=== PATIENT | male | born 1940 | race Caucasian/White ===

== ENCOUNTER 2016-04-10 19:36 | Inpatient (IN) | payer MEDICARE, OTHER ==
--- NOTE | 2016-04-10 19:55 | ER Document Report ---
ED Respiratory Problem - General Stated Complaint: BREATHING DIFFICULTY Time seen by provider: 19:55 Mode of Arrival: Medic Information source: Emergency Med Personnel TRAVEL OUTSIDE OF THE [place] IN LAST 30 DAYS: No - HPI Patient complains to provider of: Cough, Short of breath Onset: This evening Duration: Worse/persistent Quality of pain: No pain Severity: Severe Context: Recent surgery Short of Breath: Severe Chest pain/discomfort: Tightness Cough: Nonproductive Associated symptoms: Congestion, Cough, Difficulty breathing, Short of breath Recently seen / treated by doctor: Yes Notes: Patient is a 76-year-old male brought to the emergency room by EMS from local alf for shortness of breath and difficulty breathing, patient was recently admitted to outside facility and had a surgery on his left hip for a intertrochanteric fracture, he was discharged to the alf for rehabilitation, he arrived on BiPAP, he is a poor historian and it is difficult to get additional information from, but EMS reports that his pulse ox was 78% on arrival - Related Data Allergies/Adverse Reactions: Hymenoptera Allergenic Extract [From Yellow Jacket Venom Protein] Allergy ( Severe, Verified 03/01/15 14:56) Anaphylaxis morphine [Morphine] Allergy (Severe, Verified 03/01/15 14:56) Hallucinations Penicillins Allergy (Severe, Verified 03/01/15 14:56) Heart Attack Yellow Jacket Krish Protein [From Yellow Jacket Venom Protein] Allergy (Severe, Verified 03/01/15 14:56) Anaphylaxis Home Medications: Current Home Medications Acetaminophen [Pain Relief] 650 mg PO Q6H PRN 04/11/16 [History] Amlodipine Besylate/Benazepril [Amlodipine-Benazepril 5-40 mg] 1 cap PO DAILY [History] Bisacodyl 10 mg RC Q24H PRN 04/11/16 [History] Carvedilol [Coreg 25 mg Tablet] PO BID 04/11/16 [History] Carvedilol [Coreg 25 mg Tablet] 25 mg PO BID 04/11/16 [History] Ferrous Sulfate [Iron] 325 mg PO DAILY 04/11/16 [History] Folic Acid 1 mg PO DAILY 04/11/16 [History] Levofloxacin [Levaquin] 500 mg PO DAILY 04/11/16 [History] Sennosides [Senna] 8.6 mg PO BID 04/11/16 [History] Tamsulosin HCl [Flomax] 0.4 mg PO DAILY 04/11/16 [History] Tramadol HCl 50 mg PO Q6H PRN 04/11/16 [History] Tramadol HCl [Conzip] 100 mg PO Q6H PRN 04/11/16 [History] Past Medical History - General Information source: Emergency Med Personnel - Social History Smoking Status: Unknown if Ever Smoked Family History: Hypertension - Past Medical History Cardiac Medical History: Reports: Hx Atrial Fibrillation, Hx Congestive Heart Failure, Hx Coronary Artery Disease, Hx Hypertension Pulmonary Medical History: Reports: Hx COPD Endocrine Medical History: Reports: Hx Diabetes Mellitus Type 2 Past Surgical History: Reports: Hx Cardiac Surgery - pacemaker, Hx Orthopedic Surgery - multiple bilat knees, Hx Pacemaker - Immunizations Hx Diphtheria, Pertussis, Tetanus Vaccination: Yes Review of Systems - Review of Systems Constitutional: No symptoms reported EENT: No symptoms reported Cardiovascular: No symptoms reported Respiratory: See HPI Gastrointestinal: No symptoms reported Genitourinary: No symptoms reported Male Genitourinary: No symptoms reported Musculoskeletal: See HPI Skin: No symptoms reported Hematologic/Lymphatic: No symptoms reported Neurological/Psychological: No symptoms reported -: Yes All other systems reviewed and negative Physical Exam - Vital signs Vitals: Resp Pulse Ox 29 H 99 04/10/16 19:45 04/10/16 19:45 Interpretation: Tachypneic - General General appearance: Alert In distress: Mild - HEENT Head: Normocephalic, Atraumatic Eyes: Normal Pupils: PERRL Mucous membranes: Dry Pharynx: Normal Neck: Normal - Respiratory Respiratory status: Other - BiPAP in place Chest status: Nontender Breath sounds: Nonproductive cough, Rhonchi, Wheezing Chest palpation: Normal - Cardiovascular Rhythm: Regular Heart sounds: Normal auscultation Murmur: No - Abdominal Inspection: Normal Distension: No distension Bowel sounds: Normal Tenderness: Nontender Organomegaly: No organomegaly - Back Back: Normal - Extremities General upper extremity: Normal inspection, Nontender, Normal color, Normal ROM , Normal temperature General lower extremity: No: Ericka's sign Hip: Other - Incision to left lateral hip, small amount of blood on dressing, mild tenderness, wound is intact, no current bleeding or drainage, mild tenderness to palpate. - Neurological Neuro grossly intact: Yes Cognition: Confused [place] Coma Scale Eye Opening: Spontaneous Yessica Coma Scale Verbal: Confused Yessica Coma Scale Motor: Obeys Commands [place] Coma Scale Total: 14 Speech: Normal Sensory: Normal - Psychological Associated symptoms: Normal affect, Normal mood - Skin Skin Temperature: Warm Skin Moisture: Dry Skin Color: Normal Course - Re-evaluation Re-evalutation: 04/11/16 03:31 Patient with anemia, likely the cause of his shortness of breath, blood transfusion has been ordered, patient was discussed with the hospitalist who agrees to admit for further evaluation and treatment, patient was trialed off of BiPAP for short amount of time but became hypoxic, therefore BiPAP was replaced - Vital Signs Vital signs: Temp Pulse Resp BP Pulse Ox 98.8 F 60 24 H 114/63 90 L 04/11/16 00:02 04/11/16 02:42 04/11/16 02:42 04/11/16 00:02 04/11/16 02:42 - Laboratory Result Diagrams: 04/10/16 19:43 04/10/16 19:43 Laboratory results interpreted by me: 04/10/16 04/10/16 04/10/16 19:43 19:43 19:43 RBC 2.33 L Hgb 7.6 L Hct 22.9 L MCV 99 H RDW 14.3 H Plt Count 137 L Seg Neutrophils % 79.8 H Lymphocytes % 8.1 L PT APTT Sodium 147.3 H Chloride 113 H Carbon Dioxide 21 L BUN 75 H Creatinine 2.34 H Est GFR ( Amer) 33 L Est GFR (Non-Af Amer) 27 L Glucose 205 H Total Bilirubin 1.5 H ALT 20 L NT-Pro-B Natriuret Pep 39859 H Total Protein 6.0 L Albumin 3.2 L Urine Urobilinogen Crossmatch 04/10/16 04/10/16 04/10/16 19:43 19:43 21:22 RBC Hgb Hct MCV RDW Plt Count Seg Neutrophils % Lymphocytes % PT 18.9 H APTT 42.2 H Sodium Chloride Carbon Dioxide BUN Creatinine Est GFR ( Amer) Est GFR (Non-Af Amer) Glucose Total Bilirubin ALT NT-Pro-B Natriuret Pep Total Protein Albumin Urine Urobilinogen 2.0 H Crossmatch See Detail - Diagnostic Test Radiology reviewed: Image reviewed, Reports reviewed - EKG Interpretation by Me Rate: Normal Rhythm: A.Fib - Transfer of Care Care transferred to following provider: Dr. Cole Critical Care Note - Critical Care Note Total time excluding time spent on procedures (mins): 30 Comments: Patient with difficulty breathing, hypoxia, requiring BiPAP placement, noted to be anemic, requiring blood transfusion and admission Discharge - Discharge Clinical Impression: ERIBERTO (acute kidney injury) Anemia Qualifiers: Anemia type: unspecified type Qualified Code(s): D64.9 - Anemia, unspecified Condition: Fair Disposition: ADMITTED INPATIENT Admitting Provider: Hospitalist Unit Admitted: Telemetry
[2016-04-10 20:29] LABS: ABSOLUTE LYMPHOCYTES (AUTO) 0.6 10^3/uL (0.5-4.7); ABSOLUTE MONOCYTES (AUTO) 0.8 10^3/uL (0.1-1.4); ABSOLUTE NEUT (AUTO) 5.9 10^3/uL (1.7-8.2); BASOPHILS % (AUTO) 0.3 % (0-2); EOSINOPHILS % (AUTO) 0.4 % (0-6); HEMATOCRIT 22.9 % (37.9-51.0); HGB HCT DIFFERENCE -0.1; LYMPHOCYTES % (AUTO) 8.1 % (13-45); MEAN CORPUSCULAR HEMOGLOBIN 32.8 pg (27.0-33.4); MEAN CORPUSCULAR HGB CONC 33.3 g/dL (32.0-36.0); MEAN CORPUSCULAR VOLUME 99 fl (80-97); MONOCYTES % (AUTO) 11.4 % (3-13); RED BLOOD COUNT 2.33 10^6/uL (4.35-5.55); RED CELL DISTRIBUTION WIDTH 14.3 % (11.5-14.0); SEGMENTED NEUTROPHILS % (AUTO) 79.8 % (42-78); WHITE BLOOD COUNT 7.4 10^3/uL (4.0-10.5)
[2016-04-10 20:32] LABS: HEMOGLOBIN 7.6 g/dL (13.5-17.0)
[2016-04-10 20:35] LABS: APPEARANCE,URINE SLIGHTLY-CLOUDY; BILIRUBIN,URINE NEGATIVE (NEGATIVE); GLUCOSE, URINE NEGATIVE (NEGATIVE); KETONES,URINE NEGATIVE (NEGATIVE); LEUKOCYTE ESTERASE,URINE NEGATIVE (NEGATIVE); NITRITE,URINE NEGATIVE (NEGATIVE); PROTEIN,URINE NEGATIVE (NEGATIVE); URINE SPECIFIC GRAVITY 1.016
[2016-04-10 20:39] LABS: PROTHROMBIN TIME 18.9 SEC (11.4-15.4)
[2016-04-10 20:40] LABS: PARTIAL THROMBOPLASTIN TIME 42.2 SEC (23.5-35.8)
[2016-04-10 20:47] LABS: ALANINE AMINOTRANSFERASE 20 U/L (21-72); ALBUMIN 3.2 g/dL (3.5-5.0); ALKALINE PHOSPHATASE 78 U/L (38-126); ANION GAP 13 (5-19); ASPARTATE AMINO TRANSFERASE 22 U/L (17-59); BILIRUBIN,TOTAL 1.5 mg/dL (0.2-1.3); BLOOD UREA NITROGEN 75 mg/dL (7-20); CALCIUM 9.6 mg/dL (8.4-10.2); CARBON DIOXIDE 21 mmol/L (22-30); CHLORIDE 113 mmol/L (98-107); CREATINE KINASE 82 U/L (55-170); CREATININE RESULT 2.34 mg/dL (0.52-1.25); GLUCOSE 205 mg/dL (75-110); POTASSIUM 4.4 mmol/L (3.6-5.0); SODIUM 147.3 mmol/L (137-145)
[2016-04-10 20:59] LABS: CREATINE KINASE MB 3.26 ng/mL (<4.55)
[2016-04-10 21:02] LABS: TROPONIN I 0.09 ng/mL
[2016-04-10] MEDS ORDERED: NORMAL SALINE 250 ML IV PRN (21:04)
[2016-04-10] MEDS ORDERED: IPRATROPIUM/ALBUTEROL 0.5-2.5 MG/3 ML AMPUL NEB ONE (22:52)
[2016-04-10] MEDS ORDERED: ACETAMINOPHEN 325 MG TABLET PO PRN (23:03)
[2016-04-10] MEDS ORDERED: CARVEDILOL 12.5 MG TABLET PO ONE (23:13)
[2016-04-11 00:18] LABS: CREATINE KINASE 73 U/L (55-170); MAGNESIUM 2.2 mg/dL (1.6-2.3)
[2016-04-11 00:45] LABS: CREATINE KINASE MB 3.1 ng/mL (<4.55); TROPONIN I 0.082 ng/mL
[2016-04-11 01:35] LABS: FOLATE > 20.00 ng/mL (>2.76)
[2016-04-11] MEDS: LEVALBUTEROL HCL NEB 1.25 MG/3 ML AMPUL NEB SCH ×4 (02:42→19:57)
[2016-04-11] MEDS: IPRATROPIUM BROMIDE 0.02% NEB 0.5 MG/2.5 ML AMPUL NEB SCH ×4 (02:42→19:56)
--- NOTE | 2016-04-11 05:00 | PDOC H&P ---
History of Present Illness Admission Date/PCP: 04/10/16 23:40 VON KRAMER Patient complains of: Shortness of breath History of Present Illness: SANJUANA KING JR is a 76 year old male with an extensive past medical history of chronic renal failure, atrial fibrillation, congestive heart failure unknown fraction, permanent pacemaker with defibrillator who was discharged 48 hours ago from [facility] following surgery on his left hip for an anterior trochanteric fracture and found in respiratory distress started on BiPAP and oxygen brought to the emergency room for evaluation. Where his found to have severe anemia with a hemoglobin of 7 his last on record was 11 2 years ago. His chest x-ray shows left lobe atelectasis with small effusion. He's continued on BiPAP referred to the hospitalist for admission. Patient appears encephalopathic and possibly intoxicated from tramadol with pinpoint pupils in no distress. Denying nausea vomiting chest pain palpitations shortness of breath. Past Medical History Cardiac Medical History: Reports: Atrial Fibrillation, Congestive Heart Failure , Coronary Artery Disease, Hypertension Pulmonary Medical History: Reports: Chronic Obstructive Pulmonary Disease (COPD) Endocrine Medical History: Reports: Diabetes Mellitus Type 2 Renal/ Medical History: Reports: Chronic Kidney Disease Past Surgical History Past Surgical History: Reports: Orthopedic Surgery - multiple bilat knees, Pacemaker Social History Information Source: Patient, [facility] Records Smoking Status: Unknown if Ever Smoked Frequency of Alcohol Use: None Hx Recreational Drug Use: No Hx Prescription Drug Abuse: No Family History Family History: Hypertension Parental Family History Reviewed: Yes - unobtainable Children Family History Reviewed: Yes Sibling(s) Family History Reviewed.: Yes Medication/Allergy Home Medications: Acetaminophen [Pain Relief] 650 mg PO Q6H PRN 04/11/16 Amlodipine Besylate/Benazepril [Amlodipine-Benazepril 5-40 mg] 1 cap PO DAILY Bisacodyl 10 mg RC Q24H PRN 04/11/16 Carvedilol [Coreg 25 mg Tablet] 25 mg PO BID 04/11/16 Ferrous Sulfate [Iron] 325 mg PO DAILY 04/11/16 Folic Acid 1 mg PO DAILY 04/11/16 Levofloxacin [Levaquin] 500 mg PO DAILY 04/11/16 Sennosides [Senna] 8.6 mg PO BID 04/11/16 Tamsulosin HCl [Flomax] 0.4 mg PO DAILY 04/11/16 Tramadol HCl 50 mg PO Q6H PRN 04/11/16 Tramadol HCl [Conzip] 100 mg PO Q6H PRN 04/11/16 Allergies/Adverse Reactions: Hymenoptera Allergenic Extract [From Yellow Jacket Venom Protein] Allergy ( Severe, Verified 03/01/15 14:56) Anaphylaxis morphine [Morphine] Allergy (Severe, Verified 03/01/15 14:56) Hallucinations Penicillins Allergy (Severe, Verified 03/01/15 14:56) Heart Attack Yellow Jacket Krish Protein [From Yellow Jacket Venom Protein] Allergy (Severe, Verified 03/01/15 14:56) Anaphylaxis Review of Systems ROS unobtainable: Due to mental status Physical Exam Vital Signs: Temp Pulse Resp BP Pulse Ox 98.3 F 63 20 111/52 L 100 04/11/16 04:10 04/11/16 04:10 04/11/16 04:10 04/11/16 04:10 04/11/16 04:10 Intake & Output 04/09/16 04/10/16 04/11/16 11:59 11:59 11:59 Intake Total 0 Balance 0 General appearance: PRESENT: cooperative, mild distress Head exam: PRESENT: atraumatic, normocephalic Eye exam: PRESENT: conjunctiva pink, EOMI, PERRLA. ABSENT: scleral icterus Ear exam: PRESENT: normal external ear exam Mouth exam: PRESENT: moist, tongue midline Neck exam: ABSENT: carotid bruit, JVD, lymphadenopathy, thyromegaly Respiratory exam: PRESENT: crackles, decreased breath sounds, prolonged expiratory phas, rales, rhonchi, symmetrical, tachypnea. ABSENT: stridor, wheezes Cardiovascular exam: PRESENT: irregular rhythm, RRR. ABSENT: diastolic murmur, rubs, systolic murmur Pulses: PRESENT: normal dorsalis pedis pul GI/Abdominal exam: PRESENT: normal bowel sounds, soft. ABSENT: distended, guarding, mass, organolmegaly, rebound, tenderness Rectal exam: PRESENT: deferred Extremities exam: PRESENT: full ROM, tenderness - Left hip tenderness over the surgical site without evidence of large hematoma or exudate, other. ABSENT: calf tenderness, clubbing, pedal edema Neurological exam: PRESENT: altered, CN II-XII grossly intact Psychiatric exam: PRESENT: appropriate affect, normal mood. ABSENT: homicidal ideation, suicidal ideation Skin exam: PRESENT: dry, intact, warm. ABSENT: cyanosis, rash Results Laboratory Results: 04/10/16 04/10/16 23:48 23:48 Retic Count (auto) 3.62 H Absolute Retic 0.086 Magnesium 2.2 Iron 51.6 TIBC 228 L % Saturation 23 Ferritin 432.00 Vitamin B12 300.0 Folate > 20.00 04/10/16 04/10/16 23:48 23:48 Creatine Kinase 73 CK-MB (CK-2) 3.10 Troponin I 0.082 Impressions: Chest X-Ray 04/10/16 19:38 IMPRESSION: Trace left pleural effusion with patchy left basilar airspace disease atelectasis versus pneumonia Assessment & Plan - Diagnosis (1) ERIBERTO (acute kidney injury) Is this a current diagnosis for this admission?: YesPlan: GFR of 27 from a baseline of 50 with unclear cause will evaluate a urinalysis avoiding nephrotoxic meds and doses and gentle IV fluids. (2) Anemia Qualifiers: Anemia type: unspecified type Qualified Code(s): D64.9 - Anemia, unspecified Is this a current diagnosis for this admission?: YesPlan: Anemia workup underway patient is unaware of pink or dark urine or dark-colored stool and hence likely secondary to blood loss during surgery. Anemia workup ordered, transfusion of 2 units of pack red blood cells and repeat CBC. (3) A-fib Is this a current diagnosis for this admission?: YesPlan: Currently rate controlled despite demand I will continue Coreg holding anticoagulation given anemia and concern for bleeding - Time Time Spent: 50 to 70 Minutes
[2016-04-11 08:01] LABS: ABSOLUTE EOSINOPHILS # (AUTO) 0.1 10^3/uL (0.0-0.6); ABSOLUTE LYMPHOCYTES (AUTO) 0.8 10^3/uL (0.5-4.7); ABSOLUTE MONOCYTES (AUTO) 0.8 10^3/uL (0.1-1.4); ABSOLUTE NEUT (AUTO) 5.3 10^3/uL (1.7-8.2); BASOPHILS % (AUTO) 0.5 % (0-2); HEMATOCRIT 25.9 % (37.9-51.0); HEMOGLOBIN 8.7 g/dL (13.5-17.0); HGB HCT DIFFERENCE 0.2; LYMPHOCYTES % (AUTO) 11.6 % (13-45); MEAN CORPUSCULAR HEMOGLOBIN 32.3 pg (27.0-33.4); MEAN CORPUSCULAR HGB CONC 33.5 g/dL (32.0-36.0); MEAN CORPUSCULAR VOLUME 96 fl (80-97); MONOCYTES % (AUTO) 11.4 % (3-13); RED BLOOD COUNT 2.69 10^6/uL (4.35-5.55); RED CELL DISTRIBUTION WIDTH 15.7 % (11.5-14.0); SEGMENTED NEUTROPHILS % (AUTO) 75.5 % (42-78); WHITE BLOOD COUNT 7.1 10^3/uL (4.0-10.5)
[2016-04-11 08:13] LABS: PROTHROMBIN TIME 16.7 SEC (11.4-15.4)
[2016-04-11 08:21] LABS: CHOLESTEROL 125.78 mg/dL (0-200); CREATINE KINASE 69 U/L (55-170); Direct HDL 21 mg/dL (>40); TRIGLYCERIDES 146 mg/dL (<150)
[2016-04-11 08:32] LABS: CREATINE KINASE MB 2.65 ng/mL (<4.55); DIRECT LDL 74 mg/dL (<100); TROPONIN I 0.074 ng/mL
[2016-04-11] MEDS: CYANOCOBALAMIN (VITAMIN B-12) INJ 1000 MCG/1 ML VIAL IM SCH (09:19)
[2016-04-11] MEDS: CARVEDILOL 12.5 MG TABLET PO SCH ×2 (09:19→17:02)
[2016-04-11] MEDS: TAMSULOSIN HCL 0.4 MG CAP.SR.24H PO SCH (09:19)
[2016-04-11] MEDS: ASPIRIN 81 MG TABLET, ENT COATED PO SCH (09:19)
--- NOTE | 2016-04-11 09:37 | EKG REPORT ---
SEVERITY:- ABNORMAL ECG - AFIB/FLUT AND V-PACED COMPLEXES : Confirmed by: Judah Cornell MD 11-Apr-2016 09:35:59
[2016-04-11] MEDS ORDERED: DOCUSATE SODIUM 100 MG CAPSULE PO SCH (10:00)
[2016-04-11] MEDS ORDERED: (PENDING PHARMACY ID) (Sennosides [Senna] 8.6 MG) PO SCH (10:00)
[2016-04-11] MEDS: FUROSEMIDE INJ/PF 40 MG/4 ML SDV IV SCH (10:38)
--- NOTE | 2016-04-11 12:47 | PDOC PROGRESS REPORT ---
Subjective Progress Note for:: 04/11/16 Subjective:: Patient is on BiPAP the time my exam. He denies any pain when asked. Physical Exam Vital Signs: Temp Pulse Resp BP Pulse Ox 98.3 F 63 20 126/63 H 97 04/11/16 12:00 04/11/16 12:00 04/11/16 12:00 04/11/16 12:00 04/11/16 12:00 Intake & Output 04/10/16 04/11/16 04/12/16 06:59 06:59 06:59 Intake Total 610 0 Output Total 350 Balance 260 0 Weight 82.4 kg General appearance: PRESENT: mild distress Eye exam: PRESENT: conjunctiva pink. ABSENT: scleral icterus Mouth exam: PRESENT: dry mucosa Neck exam: ABSENT: JVD Respiratory exam: PRESENT: rhonchi - Coarse rhonchi bilaterally.. ABSENT: rales , wheezes Cardiovascular exam: PRESENT: RRR. ABSENT: diastolic murmur, rubs, systolic murmur Vascular exam: PRESENT: normal capillary refill GI/Abdominal exam: PRESENT: normal bowel sounds, soft. ABSENT: distended, guarding, mass, organolmegaly, rebound, tenderness Extremities exam: ABSENT: calf tenderness, clubbing, pedal edema Neurological exam: PRESENT: awake, oriented to person, oriented to place Psychiatric exam: PRESENT: flat affect Skin exam: PRESENT: dry, intact, warm. ABSENT: cyanosis, rash Results Laboratory Results: 04/11/16 07:33 04/10/16 04/10/16 04/11/16 23:48 23:48 07:33 WBC RBC Hgb Hct MCV MCH MCHC RDW Plt Count Seg Neutrophils % Lymphocytes % Monocytes % Eosinophils % Basophils % Absolute Neutrophils Absolute Lymphocytes Absolute Monocytes Absolute Eosinophils Absolute Basophils Retic Count (auto) 3.62 H Absolute Retic 0.086 Magnesium 2.2 Iron 51.6 TIBC 228 L % Saturation 23 Ferritin 432.00 Triglycerides 146 Cholesterol 125.78 LDL Cholesterol Direct 74 VLDL Cholesterol 29.0 HDL Cholesterol 21 L Vitamin B12 300.0 Folate > 20.00 04/11/16 07:33 WBC 7.1 RBC 2.69 L Hgb 8.7 L Hct 25.9 L MCV 96 MCH 32.3 MCHC 33.5 RDW 15.7 H Plt Count 140 L Seg Neutrophils % 75.5 Lymphocytes % 11.6 L Monocytes % 11.4 Eosinophils % 1.0 Basophils % 0.5 Absolute Neutrophils 5.3 Absolute Lymphocytes 0.8 Absolute Monocytes 0.8 Absolute Eosinophils 0.1 Absolute Basophils 0.0 Retic Count (auto) Absolute Retic Magnesium Iron TIBC % Saturation Ferritin Triglycerides Cholesterol LDL Cholesterol Direct VLDL Cholesterol HDL Cholesterol Vitamin B12 Folate 04/10/16 04/10/16 04/11/16 23:48 23:48 07:33 Creatine Kinase 73 69 CK-MB (CK-2) 3.10 Troponin I 0.082 04/11/16 07:33 Creatine Kinase CK-MB (CK-2) 2.65 Troponin I 0.074 Impressions: Chest X-Ray 04/10/16 19:38 IMPRESSION: Trace left pleural effusion with patchy left basilar airspace disease atelectasis versus pneumonia Assessment & Plan - Diagnosis (1) ERIBERTO (acute kidney injury) Is this a current diagnosis for this admission?: YesPlan: Most likely secondary to his acute anemia and is getting just use. We'll continue to monitor creatinine. (2) A-fib Is this a current diagnosis for this admission?: Yes (3) Anemia Qualifiers: Anemia type: unspecified type Qualified Code(s): D64.9 - Anemia, unspecified Is this a current diagnosis for this admission?: YesPlan: Patient had recent hip surgery done at [facility]. We'll transfuse and monitor. (4) Acute respiratory failure with hypoxia and hypercapnia Is this a current diagnosis for this admission?: YesPlan: Most likely secondary to COPD. We'll continue the BiPAP and nebulizers. (5) CAD (coronary artery disease) Is this a current diagnosis for this admission?: YesPlan: Denies any chest pain. (6) CHF (congestive heart failure) Qualifiers: Congestive heart failure type: unspecified congestive heart failure type Congestive heart failure chronicity: unspecified congestive heart failure chronicity Qualified Code(s): I50.9 - Heart failure, unspecified Is this a current diagnosis for this admission?: Yes (7) COPD exacerbation Is this a current diagnosis for this admission?: YesPlan: Patient is currently requiring BiPAP. (8) DNR (do not resuscitate) Is this a current diagnosis for this admission?: Yes (9) Hypernatremia Is this a current diagnosis for this admission?: YesPlan: This should improve after transfusion and volume resuscitation - Time Time Spent with patient: 25-34 minutes - Inpatient Certification Medical Necessity: Need Close Monitoring Due to Risk of Patient Decompensation
[2016-04-11 14:30] LABS: CREATINE KINASE MB 2.33 ng/mL (<4.55); TROPONIN I 0.063 ng/mL
[2016-04-12] MEDS: IPRATROPIUM BROMIDE 0.02% NEB 0.5 MG/2.5 ML AMPUL NEB SCH ×4 (01:46→20:24)
[2016-04-12] MEDS: LEVALBUTEROL HCL NEB 1.25 MG/3 ML AMPUL NEB SCH ×4 (01:46→20:24)
[2016-04-12 05:22] LABS: ABSOLUTE EOSINOPHILS # (AUTO) 0.1 10^3/uL (0.0-0.6); ABSOLUTE LYMPHOCYTES (AUTO) 0.7 10^3/uL (0.5-4.7); ABSOLUTE MONOCYTES (AUTO) 0.8 10^3/uL (0.1-1.4); ABSOLUTE NEUT (AUTO) 5.3 10^3/uL (1.7-8.2); BASOPHILS % (AUTO) 0.5 % (0-2); EOSINOPHILS % (AUTO) 1.1 % (0-6); HEMATOCRIT 29.6 % (37.9-51.0); HEMOGLOBIN 9.9 g/dL (13.5-17.0); HGB HCT DIFFERENCE 0.1; LYMPHOCYTES % (AUTO) 10.6 % (13-45); MEAN CORPUSCULAR HEMOGLOBIN 32.1 pg (27.0-33.4); MEAN CORPUSCULAR HGB CONC 33.6 g/dL (32.0-36.0); MEAN CORPUSCULAR VOLUME 96 fl (80-97); MONOCYTES % (AUTO) 12.1 % (3-13); RED BLOOD COUNT 3.09 10^6/uL (4.35-5.55); RED CELL DISTRIBUTION WIDTH 15.6 % (11.5-14.0); SEGMENTED NEUTROPHILS % (AUTO) 75.7 % (42-78); WHITE BLOOD COUNT 6.9 10^3/uL (4.0-10.5)
[2016-04-12 05:41] LABS: ANION GAP 13 (5-19); BLOOD UREA NITROGEN 69 mg/dL (7-20); CALCIUM 9.8 mg/dL (8.4-10.2); CARBON DIOXIDE 22 mmol/L (22-30); CHLORIDE 115 mmol/L (98-107); CREATININE RESULT 1.98 mg/dL (0.52-1.25); GLUCOSE 133 mg/dL (75-110); POTASSIUM 4.2 mmol/L (3.6-5.0); PROTHROMBIN TIME 16.1 SEC (11.4-15.4); SODIUM 149.9 mmol/L (137-145)
[2016-04-12] MEDS: CYANOCOBALAMIN (VITAMIN B-12) INJ 1000 MCG/1 ML VIAL IM SCH (09:21)
[2016-04-12] MEDS: FUROSEMIDE INJ/PF 40 MG/4 ML SDV IV SCH (09:22)
[2016-04-12] MEDS: TAMSULOSIN HCL 0.4 MG CAP.SR.24H PO SCH (09:22)
[2016-04-12] MEDS: ASPIRIN 81 MG TABLET, ENT COATED PO SCH (09:22)
[2016-04-12] MEDS: CARVEDILOL 12.5 MG TABLET PO SCH ×2 (09:22→21:49)
[2016-04-12] MEDS: SENNOSIDES/DOCUSATE 8.6-50 MG 1 EACH TABLET PO SCH ×2 (09:23→16:34)
--- NOTE | 2016-04-12 09:58 | PDOC PROGRESS REPORT ---
Subjective Progress Note for:: 04/12/16 Subjective:: Patient reports he's hungry and wants to eat Physical Exam Vital Signs: Temp Pulse Resp BP Pulse Ox 98.0 F 60 22 H 146/70 H 100 04/12/16 08:09 04/12/16 08:09 04/12/16 08:09 04/12/16 08:09 04/12/16 08:09 Intake & Output 04/11/16 04/12/16 04/13/16 06:59 06:59 06:59 Intake Total 610 705 Output Total 350 2700 Balance 260 -1994 Weight 82.4 kg 80.4 kg General appearance: PRESENT: no acute distress Eye exam: PRESENT: conjunctiva pink. ABSENT: scleral icterus Mouth exam: PRESENT: moist, tongue midline Neck exam: ABSENT: JVD Respiratory exam: PRESENT: clear to auscultation kenyon. ABSENT: rales, rhonchi, wheezes Cardiovascular exam: PRESENT: RRR. ABSENT: diastolic murmur, rubs, systolic murmur GI/Abdominal exam: PRESENT: normal bowel sounds, soft. ABSENT: distended, guarding, mass, organolmegaly, rebound, tenderness Extremities exam: ABSENT: calf tenderness, clubbing, pedal edema Neurological exam: PRESENT: alert, awake, oriented to person, oriented to place , oriented to time, oriented to situation, CN II-XII grossly intact. ABSENT: motor sensory deficit Psychiatric exam: PRESENT: appropriate affect Skin exam: PRESENT: dry, intact, warm. ABSENT: cyanosis, rash Results Laboratory Results: 04/12/16 05:10 04/12/16 05:10 04/12/16 04/12/16 05:10 05:10 WBC 6.9 RBC 3.09 L Hgb 9.9 L Hct 29.6 L MCV 96 MCH 32.1 MCHC 33.6 RDW 15.6 H Plt Count 148 L Seg Neutrophils % 75.7 Lymphocytes % 10.6 L Monocytes % 12.1 Eosinophils % 1.1 Basophils % 0.5 Absolute Neutrophils 5.3 Absolute Lymphocytes 0.7 Absolute Monocytes 0.8 Absolute Eosinophils 0.1 Absolute Basophils 0.0 Sodium 149.9 H Potassium 4.2 Chloride 115 H Carbon Dioxide 22 Anion Gap 13 BUN 69 H Creatinine 1.98 H Est GFR ( Amer) 40 L Est GFR (Non-Af Amer) 33 L Glucose 133 H Calcium 9.8 04/10/16 04/10/16 04/11/16 23:48 23:48 07:33 Creatine Kinase 73 69 CK-MB (CK-2) 3.10 Troponin I 0.082 04/11/16 04/11/16 04/11/16 07:33 13:27 13:27 Creatine Kinase 61 CK-MB (CK-2) 2.65 2.33 Troponin I 0.074 0.063 Impressions: Chest X-Ray 04/10/16 19:38 IMPRESSION: Trace left pleural effusion with patchy left basilar airspace disease atelectasis versus pneumonia Assessment & Plan - Diagnosis (1) ERIBERTO (acute kidney injury) Is this a current diagnosis for this admission?: YesPlan: Most likely secondary to his acute anemia and received 2 units packed red blood cells. He has hypernatremia, we will start on half normal saline today. We'll continue to monitor creatinine. (2) A-fib Is this a current diagnosis for this admission?: YesPlan: Patient is rate controlled (3) Anemia Qualifiers: Anemia type: unspecified type Qualified Code(s): D64.9 - Anemia, unspecified Is this a current diagnosis for this admission?: YesPlan: Patient had recent hip surgery done at [facility]. This is most likely cause for his anemia. He was transfused 2 units of packed red blood cells. We will continue to monitor his hemoglobin. (4) Acute respiratory failure with hypoxia and hypercapnia Is this a current diagnosis for this admission?: YesPlan: Most likely secondary to COPD. he is much improved from yesterday. We'll continue with BiPAP as needed. Continue with nebulizers. (5) CAD (coronary artery disease) Is this a current diagnosis for this admission?: YesPlan: Denies any chest pain. (6) CHF (congestive heart failure) Qualifiers: Congestive heart failure type: unspecified congestive heart failure type Congestive heart failure chronicity: unspecified congestive heart failure chronicity Qualified Code(s): I50.9 - Heart failure, unspecified Is this a current diagnosis for this admission?: YesPlan: The patient appears to be euvolemic but his sodium is elevated. We will give half-normal saline and watch closely to make certain we do not cause volume overload (7) COPD exacerbation Is this a current diagnosis for this admission?: YesPlan: Patient is improved from yesterday. We'll continue BiPAP as needed and continue with nebulizers. (8) DNR (do not resuscitate) Is this a current diagnosis for this admission?: Yes (9) Hypernatremia Is this a current diagnosis for this admission?: YesPlan: We'll start half-normal saline and repeat laboratory work tomorrow - Time Time Spent with patient: 25-34 minutes - Inpatient Certification Medical Necessity: Need For IV Fluids - Plan Summary Plan Summary: If the patient continues to improve he can hopefully be discharged back to rehabilitation tomorrow
[2016-04-12] MEDS: 1/2 NORMAL SALINE 1,000 ML IV PRN ×2 (12:56→21:49)
[2016-04-13] MEDS: IPRATROPIUM BROMIDE 0.02% NEB 0.5 MG/2.5 ML AMPUL NEB SCH ×4 (02:45→20:08)
[2016-04-13] MEDS: LEVALBUTEROL HCL NEB 1.25 MG/3 ML AMPUL NEB SCH ×4 (02:46→20:08)
[2016-04-13 05:30] LABS: ABSOLUTE EOSINOPHILS # (AUTO) 0.1 10^3/uL (0.0-0.6); ABSOLUTE LYMPHOCYTES (AUTO) 0.9 10^3/uL (0.5-4.7); BASOPHILS % (AUTO) 0.5 % (0-2); EOSINOPHILS % (AUTO) 1.3 % (0-6); HEMATOCRIT 28.6 % (37.9-51.0); HEMOGLOBIN 9.7 g/dL (13.5-17.0); HGB HCT DIFFERENCE 0.5; LYMPHOCYTES % (AUTO) 11.4 % (13-45); MEAN CORPUSCULAR HEMOGLOBIN 32.4 pg (27.0-33.4); MEAN CORPUSCULAR HGB CONC 34.1 g/dL (32.0-36.0); MEAN CORPUSCULAR VOLUME 95 fl (80-97); MONOCYTES % (AUTO) 12.2 % (3-13); RED BLOOD COUNT 3.01 10^6/uL (4.35-5.55); RED CELL DISTRIBUTION WIDTH 15.4 % (11.5-14.0); SEGMENTED NEUTROPHILS % (AUTO) 74.6 % (42-78)
[2016-04-13 05:34] LABS: PROTHROMBIN TIME 16.9 SEC (11.4-15.4)
[2016-04-13 05:57] LABS: ANION GAP 10 (5-19); BLOOD UREA NITROGEN 60 mg/dL (7-20); CALCIUM 8.9 mg/dL (8.4-10.2); CARBON DIOXIDE 23 mmol/L (22-30); CHLORIDE 109 mmol/L (98-107); CREATININE RESULT 1.64 mg/dL (0.52-1.25); GLUCOSE 137 mg/dL (75-110); SODIUM 141.7 mmol/L (137-145)
[2016-04-13 05:58] LABS: POTASSIUM 4.5 mmol/L (3.6-5.0)
[2016-04-13] MEDS: 1/2 NORMAL SALINE 1,000 ML IV PRN (10:33)
[2016-04-13] MEDS: SENNOSIDES/DOCUSATE 8.6-50 MG 1 EACH TABLET PO SCH ×2 (10:53→17:21)
[2016-04-13] MEDS: CARVEDILOL 12.5 MG TABLET PO SCH ×2 (10:53→21:53)
[2016-04-13] MEDS: TAMSULOSIN HCL 0.4 MG CAP.SR.24H PO SCH (10:53)
[2016-04-13] MEDS: CYANOCOBALAMIN (VITAMIN B-12) INJ 1000 MCG/1 ML VIAL IM SCH (10:54)
[2016-04-13] MEDS: ASPIRIN 81 MG TABLET, ENT COATED PO SCH (10:54)
[2016-04-13] MEDS: FUROSEMIDE INJ/PF 40 MG/4 ML SDV IV SCH ×2 (10:54→17:21)
--- NOTE | 2016-04-13 16:03 | PDOC PROGRESS REPORT ---
Subjective Progress Note for:: 04/13/16 Subjective:: The patient feels much better. Denies any coughing, shortness of breath, chills or fever, chest pain, nausea or vomiting. Patient reports some loose bowel movement. No reported abdominal pain at all. Patient denies any bleeding. Patient was in rehabilitation, for recent hip surgery for a fracture. Physical Exam Vital Signs: Temp Pulse Resp BP Pulse Ox 97.7 F 73 20 142/61 H 99 04/13/16 08:00 04/13/16 14:23 04/13/16 14:23 04/13/16 08:00 04/13/16 14:23 Intake & Output 04/12/16 04/13/16 04/14/16 06:59 06:59 06:59 Intake Total 705 2180 Output Total 2700 2720 Balance -1994 Weight 80.4 kg 80.5 kg General appearance: PRESENT: no acute distress, cooperative Head exam: PRESENT: normocephalic Eye exam: PRESENT: EOMI Mouth exam: PRESENT: moist, neck supple Neck exam: ABSENT: JVD Respiratory exam: PRESENT: clear to auscultation kenyon Cardiovascular exam: PRESENT: RRR. ABSENT: gallop GI/Abdominal exam: PRESENT: hypoactive bowel sounds, soft. ABSENT: distended, tenderness Extremities exam: PRESENT: other - Trace to +1 edema bilateral Neurological exam: PRESENT: alert, awake, oriented to situation Skin exam: PRESENT: dry, warm. ABSENT: cyanosis Results Laboratory Results: 04/13/16 04:30 04/13/16 04:30 04/13/16 04/13/16 04:30 04:30 WBC 8.0 RBC 3.01 L Hgb 9.7 L Hct 28.6 L MCV 95 MCH 32.4 MCHC 34.1 RDW 15.4 H Plt Count 149 L Seg Neutrophils % 74.6 Lymphocytes % 11.4 L Monocytes % 12.2 Eosinophils % 1.3 Basophils % 0.5 Absolute Neutrophils 6.0 Absolute Lymphocytes 0.9 Absolute Monocytes 1.0 Absolute Eosinophils 0.1 Absolute Basophils 0.0 Sodium 141.7 Potassium 4.5 Chloride 109 H Carbon Dioxide 23 Anion Gap 10 BUN 60 H Creatinine 1.64 H Est GFR ( Amer) 49 L Est GFR (Non-Af Amer) 41 L Glucose 137 H Calcium 8.9 04/10/16 04/10/16 04/11/16 23:48 23:48 07:33 Creatine Kinase 73 69 CK-MB (CK-2) 3.10 Troponin I 0.082 04/11/16 04/11/16 04/11/16 07:33 13:27 13:27 Creatine Kinase 61 CK-MB (CK-2) 2.65 2.33 Troponin I 0.074 0.063 Impressions: Chest X-Ray 04/10/16 19:38 IMPRESSION: Trace left pleural effusion with patchy left basilar airspace disease atelectasis versus pneumonia Assessment & Plan - Diagnosis (1) ERIBERTO (acute kidney injury) Is this a current diagnosis for this admission?: Yes (2) Anemia Qualifiers: Anemia type: unspecified type Qualified Code(s): D64.9 - Anemia, unspecified Is this a current diagnosis for this admission?: Yes (3) CKD (chronic kidney disease) stage 3, GFR 30-59 ml/min Is this a current diagnosis for this admission?: Yes (4) A-fib Qualifiers: Atrial fibrillation type: unspecified Qualified Code(s): I48.91 - Unspecified atrial fibrillation Is this a current diagnosis for this admission?: Yes (5) CAD (coronary artery disease) Qualifiers: Coronary Disease-Associated Artery/Lesion type: [place] artery [place] vs. transplanted heart: [place] heart Associated angina: without angina Qualified Code(s): I25.10 - Atherosclerotic heart disease of [place] coronary artery without angina pectoris Is this a current diagnosis for this admission?: Yes (6) CHF (congestive heart failure) Qualifiers: Congestive heart failure type: unspecified congestive heart failure type Congestive heart failure chronicity: unspecified congestive heart failure chronicity Qualified Code(s): I50.9 - Heart failure, unspecified Is this a current diagnosis for this admission?: Yes (7) COPD exacerbation Is this a current diagnosis for this admission?: Yes (8) Hypertension Qualifiers: Hypertension type: essential hypertension Qualified Code(s): I10 - Essential (primary) hypertension Is this a current diagnosis for this admission?: Yes (9) Type II diabetes mellitus Qualifiers: Diabetes mellitus complication status: with unspecified complications Diabetes mellitus mail sorter insulin use: without chcf use Qualified Code(s): E11.8 - Type 2 diabetes mellitus with unspecified complications Is this a current diagnosis for this admission?: Yes - Plan Summary Plan Summary: We will increase the patient's Lasix and discontinue intravenous fluids. Patient's abnormal chest x-ray may be related to fluid overload from recent surgery and currently patient had transfusions. We will continue to monitor. Begin physical therapy. Check stool for Clostridium difficile toxin. Possible transfer back to subacute rehabilitation in the morning.
[2016-04-14] MEDS: IPRATROPIUM BROMIDE 0.02% NEB 0.5 MG/2.5 ML AMPUL NEB SCH ×3 (02:36→13:40)
[2016-04-14] MEDS: LEVALBUTEROL HCL NEB 1.25 MG/3 ML AMPUL NEB SCH ×3 (02:36→13:40)
[2016-04-14] MEDS: FUROSEMIDE INJ/PF 40 MG/4 ML SDV IV SCH ×2 (05:20→15:54)
[2016-04-14] MEDS: CYANOCOBALAMIN (VITAMIN B-12) INJ 1000 MCG/1 ML VIAL IM SCH (10:22)
[2016-04-14] MEDS: TAMSULOSIN HCL 0.4 MG CAP.SR.24H PO SCH (10:22)
[2016-04-14] MEDS: CARVEDILOL 12.5 MG TABLET PO SCH (10:22)
[2016-04-14] MEDS: SENNOSIDES/DOCUSATE 8.6-50 MG 1 EACH TABLET PO SCH ×2 (10:23→17:35)
[2016-04-14] MEDS: ASPIRIN 81 MG TABLET, ENT COATED PO SCH (10:23)
--- NOTE | 2016-04-14 11:20 | PDOC TRANSFER SUMMARY ---
General - Admit/Disc Date/PCP Admission Date/Primary Care Provider: 04/10/16 23:03 VON KRAMER Discharge Date: 04/14/16 - Discharge Diagnosis (1) ERIBERTO (acute kidney injury) Is this a current diagnosis for this admission?: Yes (2) Anemia Is this a current diagnosis for this admission?: Yes (3) CKD (chronic kidney disease) stage 3, GFR 30-59 ml/min Is this a current diagnosis for this admission?: Yes (4) A-fib Is this a current diagnosis for this admission?: Yes (5) CAD (coronary artery disease) Is this a current diagnosis for this admission?: Yes (6) CHF (congestive heart failure) Is this a current diagnosis for this admission?: Yes (7) COPD exacerbation Is this a current diagnosis for this admission?: Yes (8) Hypertension Is this a current diagnosis for this admission?: Yes (9) Type II diabetes mellitus Is this a current diagnosis for this admission?: Yes (10) Coagulopathy Is this a current diagnosis for this admission?: Yes - Additional Information Discharge Diet: Cardiac - low-fat low-salt, Diabetic - no concentrated sweets Discharge Activity: Activity As Tolerated, Balance Activity w/Rest, Slowly Increase Activity Home Medications: Acetaminophen 650 mg PO Q6HP PRN 04/11/16 Bisacodyl [Dulcolax 10 mg Supp.rect] 10 mg NM DAILYP PRN 04/11/16 Carvedilol [Coreg 25 mg Tablet] 1 tab PO BID 04/11/16 Ferrous Sulfate [Iron] 325 mg PO DAILY 04/11/16 Folic Acid 1 mg PO DAILY 04/11/16 Sennosides/Docusate 8.6-50 mg [Senna Plus Tablet] 2 tab PO BID 04/11/16 Tamsulosin HCl [Flomax 0.4 mg Cap.sr] 0.4 mg PO QPM 04/11/16 Aspirin [Ecotrin 81 mg EC Tablet] 81 mg PO DAILY tabec 04/14/16 Ipratropium [place] [Atrovent 0.02% Neb 0.5 mg/2.5 ml Ampul] 0.5 mg NEB RTQ6 vial.neb 04/14/16 Levalbuterol HCl [Xopenex Neb 1.25 mg/3 ml Ampul] 1.25 mg NEB RTQ6 vial.neb 09/23 Tramadol HCl [Ultram 50 mg Tablet] 25 mg PO Q6HP PRN #0 04/14/16 Additional Information: Oxygen at 2 L nasal cannula. History of Present Illness Admission Date/PCP: 04/10/16 23:03 VON KRAMER Patient complains of: Shortness of breath History of Present Illness: SANJUANA KING JR is a 76 year old male with an extensive past medical history of chronic renal failure, atrial fibrillation, congestive heart failure unknown fraction, permanent pacemaker with defibrillator who was discharged 48 hours ago from [facility] following surgery on his left hip for an anterior trochanteric fracture and found in respiratory distress started on BiPAP and oxygen brought to the emergency room for evaluation. Where his found to have severe anemia with a hemoglobin of 7 his last on record was 11 2 years ago. His chest x-ray shows left lobe atelectasis with small effusion. He's continued on BiPAP referred to the hospitalist for admission. Patient appears encephalopathic and possibly intoxicated from tramadol with pinpoint pupils in no distress. Denying nausea vomiting chest pain palpitations shortness of breath. Hospital Course Hospital Course: The patient was admitted to telemetry. The patient was placed on BiPAP and patient was started on diuretics for a diagnosis of heart failure as the brain natruretic peptide was elevated. He however has worsening creatinine compared to baseline likely contributing to elevation . Chest x-ray however not suggestive of heart failure but of atelectasis and small effusion. The small pleural effusion noted probably related from IV fluid infusion from his recent surgical procedure in [facility]. He was likewise treated for possible COPD exacerbation with bronchodilators. Patient had significant anemia probably post operatively and therefore the patient was given 2 units of packed RBC. Subsequent hemoglobin and hematocrit monitoring was stable. Patient noted also with acute renal failure where he was gently hydrated and creatinine improved. The patient significantly improved since then. Shortness of breath has resolved, BiPAP was discontinued and patient placed on nasal cannula oxygen. He was observed for 48 hours more in the hospital and has remained stable without any worsening in mental status nor respirations. There was a question of pneumonia on the chest x-ray, but this was attributed more to effusion and atelectasis. WBC has remained normal and he is afebrile. He was not started on antibiotic as he recently completed a course. Of note the patient has coagulopathy and on serial monitoring the patient has an elevated PT /INR. He was not on chronic anticoagulation from the facility where she came in and when discharged from [facility]. Patient is not a candidate for chronic anticoagulation, due to fall risk and bleeding , he was placed on aspirin for his chronic atrial fibrillation. The rest of the hospital stay is essentially unremarkable. He was on ARB and was discontinued due to renal failure as well. Physical Exam Vital Signs: Temp Pulse Resp BP Pulse Ox 97.9 F 63 16 130/55 H 95 04/14/16 07:22 04/14/16 08:00 04/14/16 08:00 04/14/16 07:22 04/14/16 08:00 Intake & Output 04/13/16 04/14/16 04/15/16 06:59 06:59 06:59 Intake Total 2180 1200 Output Total 2720 2750 Balance -540 -1550 Weight 80.5 kg 86.2 kg General appearance: PRESENT: no acute distress, cooperative Head exam: PRESENT: normocephalic Eye exam: PRESENT: EOMI Mouth exam: PRESENT: moist, neck supple Neck exam: ABSENT: JVD Respiratory exam: PRESENT: clear to auscultation ken[place] - Anteriorly. ABSENT: rhonchi, wheezes Cardiovascular exam: PRESENT: irregular rhythm. ABSENT: gallop GI/Abdominal exam: PRESENT: soft. ABSENT: distended, tenderness Extremities exam: PRESENT: other - Trace lower extremity edema Neurological exam: PRESENT: alert, awake, oriented to situation Skin exam: PRESENT: dry, warm. ABSENT: cyanosis Results Laboratory Results: 04/13/16 04:30 04/13/16 04:30 04/10/16 04/10/16 04/11/16 23:48 23:48 07:33 Creatine Kinase 73 69 CK-MB (CK-2) 3.10 Troponin I 0.082 04/11/16 04/11/16 04/11/16 07:33 13:27 13:27 Creatine Kinase 61 CK-MB (CK-2) 2.65 2.33 Troponin I 0.074 0.063 Impressions: Chest X-Ray 04/10/16 19:38 IMPRESSION: Trace left pleural effusion with patchy left basilar airspace disease atelectasis versus pneumonia Transfer Plan - Disposition Transfer Plan: Subacute rehabilitation for physical therapy - Time Spent with Patient Time spent with patient: Less than 30 Minutes Qualifiers PATEINT BEING DISCHARGED WITH ANY OF THE FOLLOWING DIAGNOSIS?: No Plan Discharge Plan: Appointment with primary care physician in one week Time Spent: Less than 30 Minutes
[2016-04-14 16:30] VITALS: BP 117/44
== END 2016-04-14 19:30 | DRG 682 ==
LOC: ER 19:36 → EH 23:03 → UNDOADMIN 23:40 → EH 23:40 → 4N 04-11 02:30 → EH 04-11 02:30
PROVIDERS: ADMIT Internal Medicine; ATTEND Internal Medicine
PROC: 5A09457 Assistance with Respiratory Ventilation, 24-96 Consecutive Hours, Continuous Positive Airway Pressure (ICD-10-PCS; 2016-04-10)
PROC: 3E0F73Z Introduction of Anti-inflammatory into Respiratory Tract, Via Natural or Artificial Opening (ICD-10-PCS; 2016-04-10)
PROC: 30233N1 Transfusion of Nonautologous Red Blood Cells into Peripheral Vein, Percutaneous Approach (ICD-10-PCS; principal; 2016-04-11)
DX: N17.9 Acute kidney failure, unspecified (principal); J96.01 Acute respiratory failure with hypoxia; J96.02 Acute respiratory failure with hypercapnia; I13.0 Hypertensive heart and chronic kidney disease with heart failure and stage 1 through stage 4 chronic kidney disease, or unspecified chronic kidney disease; J44.1 Chronic obstructive pulmonary disease with (acute) exacerbation; E87.0 Hyperosmolality and hypernatremia; E11.22 Type 2 diabetes mellitus with diabetic chronic kidney disease; N18.3 Chronic kidney disease, stage 3 (moderate); I48.2 Chronic atrial fibrillation; D63.1 Anemia in chronic kidney disease; I48.91 Unspecified atrial fibrillation; I25.10 Atherosclerotic heart disease of native coronary artery without angina pectoris; Z79.899 Other long term (current) drug therapy; Z95.0 Presence of cardiac pacemaker; Z88.6 Allergy status to analgesic agent; Z88.0 Allergy status to penicillin; Z88.8 Allergy status to other drugs, medicaments and biological substances
CPT/HCPCS: 36415; 36430; 71010; 80048; 80053; 80061; 81001; 82550; 82553; 82607; 82728; 82746; 83540; 83550; 83735; 83880; 84484; 85025; 85045; 85610; 85730; 86850; 86900; 86901; 86920; 87040; 87493; 93005; 93010; 94640; 94660; 94799; 99291; G8978-GP; G8979-GP; G8996-GN; G8997-GN; G8998-GN; J1940; J3420; J3490; P9016

== ENCOUNTER 2016-08-02 10:27 | Inpatient (IN) | payer MEDICARE, OTHER ==
[2016-08-02 11:05] LABS: ABSOLUTE BASOPHILS # (AUTO) 0.1 10^3/uL (0.0-0.2); ABSOLUTE EOSINOPHILS # (AUTO) 0.1 10^3/uL (0.0-0.6); ABSOLUTE LYMPHOCYTES (AUTO) 0.9 10^3/uL (0.5-4.7); ABSOLUTE NEUT (AUTO) 11.1 10^3/uL (1.7-8.2); BASOPHILS % (AUTO) 0.8 % (0-2); EOSINOPHILS % (AUTO) 0.5 % (0-6); HEMATOCRIT 37.5 % (37.9-51.0); HEMOGLOBIN 12.8 g/dL (13.5-17.0); HGB HCT DIFFERENCE 0.9; LYMPHOCYTES % (AUTO) 6.9 % (13-45); MEAN CORPUSCULAR HEMOGLOBIN 33.1 pg (27.0-33.4); MEAN CORPUSCULAR HGB CONC 34.1 g/dL (32.0-36.0); MEAN CORPUSCULAR VOLUME 97 fl (80-97); MONOCYTES % (AUTO) 7.7 % (3-13); RED BLOOD COUNT 3.86 10^6/uL (4.35-5.55); RED CELL DISTRIBUTION WIDTH 15.6 % (11.5-14.0); SEGMENTED NEUTROPHILS % (AUTO) 84.1 % (42-78); WHITE BLOOD COUNT 13.1 10^3/uL (4.0-10.5)
[2016-08-02 11:27] LABS: ALANINE AMINOTRANSFERASE 20 U/L (21-72); ALKALINE PHOSPHATASE 95 U/L (38-126); ANION GAP 17 (5-19); ASPARTATE AMINO TRANSFERASE 16 U/L (17-59); BILIRUBIN,DIRECT 0.5 mg/dL (0.0-0.4); BILIRUBIN,TOTAL 1.7 mg/dL (0.2-1.3); BLOOD UREA NITROGEN 112 mg/dL (7-20); CALCIUM 9.6 mg/dL (8.4-10.2); CARBON DIOXIDE 35 mmol/L (22-30); CHLORIDE 85 mmol/L (98-107); CREATINE KINASE 36 U/L (55-170); CREATININE RESULT 3.08 mg/dL (0.52-1.25); GLUCOSE 194 mg/dL (75-110); SODIUM 137.2 mmol/L (137-145); TOTAL PROTEIN 7.6 g/dL (6.3-8.2)
[2016-08-02 11:34] LABS: POTASSIUM 2.4 mmol/L (3.6-5.0)
[2016-08-02 11:38] LABS: CREATINE KINASE MB 1.62 ng/mL (<4.55)
[2016-08-02 11:46] LABS: TROPONIN I 0.061 ng/mL
[2016-08-02] MEDS ORDERED: POTASSIUM CHLORIDE 10 MEQ TABLET.SA PO ONE (12:28)
[2016-08-02] MEDS ORDERED: LIDOCAINE 2% URO-JET 5 ML KIT MM ONE (12:40)
[2016-08-02] MEDS ORDERED: NORMAL SALINE 1000 ML 1,000 ML IV ONE (12:41)
--- NOTE | 2016-08-02 12:48 | ER Document Report ---
ED General - General Chief Complaint: Weakness Stated Complaint: WEAKNESS Time Seen by Provider: 08/02/16 12:27 Notes: Patient is a resident of [facility] and was brought in by EMS today. At first , patient says "I have no idea" why he was brought in, but after talking to him for a while, he says that he has been sleeping constantly over the past 4-5 days. Also not eating or drinking anything for that same time. Says she has had some difficulty with his breathing and coughing. Over the past couple of days he has had vomiting with thick, yellow bile. Denies any diarrhea or change in bowel habits. Has not noted any fever. After seeing the patient's initial lab work showing significant renal insufficiency, I asked him about his kidney function and he says he makes urine , but not as much recently. He has never been told he has any problems with his kidneys. Only history of abdominal surgeries for adhesions. He has had bilateral total knee replacements and left total hip replacement. Patient has a pacemaker. 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 Says he goes to the [place] [facility]. TRAVEL OUTSIDE OF THE [place] IN LAST 30 DAYS: No - Related Data Allergies/Adverse Reactions: Hymenoptera Allergenic Extract [From Yellow Jacket Venom Protein] Allergy ( Severe, Verified 03/01/15 14:56) Anaphylaxis morphine [Morphine] Allergy (Severe, Verified 03/01/15 14:56) Hallucinations Penicillins Allergy (Severe, Verified 03/01/15 14:56) Heart Attack Yellow Jacket Krish Protein [From [place]et Venom Protein] Allergy (Severe, Verified 03/01/15 14:56) Anaphylaxis Past Medical History - Social History Smoking Status: Former Smoker - Stop smoking 2 weeks ago Cigarette use (# per day): No Family History: Hypertension - Past Medical History Cardiac Medical History: Reports: Hx Atrial Fibrillation, Hx Congestive Heart Failure, Hx Coronary Artery Disease, Hx Hypertension Pulmonary Medical History: Reports: Hx COPD Endocrine Medical History: Reports: Hx Diabetes Mellitus Type 2 Renal/ Medical History: Denies: Hx End Stage Renal Disease, Hx Renal Insufficiency Past Surgical History: Reports: Hx Cardiac Surgery - pacemaker, Hx Orthopedic Surgery - multiple bilat knees Left total hip replacement, Hx Pacemaker - Immunizations Hx Diphtheria, Pertussis, Tetanus Vaccination: Yes Review of Systems - Review of Systems Notes: REVIEW OF SYSTEMS: CONSTITUTIONAL : Denies fever. EENT: Denies eye, ear, nose or mouth or throat pain or other symptoms. CARDIOVASCULAR: Denies chest pain. History of a pacemaker. RESPIRATORY: Has some cough and chest congestion and shortness of breath. GASTROINTESTINAL: Patient says he has been having some vomiting a couple of times with yellow bile produced, 2 days ago.. GENITOURINARY: Denies difficulty or painful urinating, urinary frequency, blood in urine. Says he makes urine daily. MUSCULOSKELETAL: Denies back or neck pain. Denies joint pain or swelling. SKIN: Denies rash or skin lesions. NEUROLOGICAL: Denies LOC or altered mental status. Denies headache. Denies sensory loss or motor deficits. ALL OTHER SYSTEMS REVIEWED AND NEGATIVE. Physical Exam - Vital signs Interpretation: Normal - Notes Notes: PHYSICAL EXAMINATION: GENERAL: Well-appearing, in no acute distress. Signs are all essentially normal. HEAD: Atraumatic, normocephalic. EYES: Pupils equal round and reactive to light, extraocular movements intact. ENT: oropharynx clear without exudates. Oral mucous membranes are very dry!. NECK: Normal range of motion, supple. LUNGS: Breath sounds clear and equal bilaterally. HEART: Regular rate and rhythm without murmurs. ABDOMEN: Soft, nontender. No guarding or rebound. BACK: No tenderness throughout entire back. EXTREMITIES: Normal range of motion without pain. NEUROLOGICAL: Normal speech, gait not tested. Normal sensory, motor, and reflex exams. Awake, alert, and oriented x3. PSYCH: Normal mood, normal affect. SKIN: Warm, dry, no rashes. Course - Re-evaluation Re-evalutation: 08/02/16 14:15 Discussed patient and his lab results with hospitalist cash control specialist who will admit him for hydration. - Laboratory Result Diagrams: 08/02/16 10:48 08/02/16 10:48 Laboratory results interpreted by me: 08/02/16 08/02/16 10:48 10:48 WBC 13.1 H RBC 3.86 L Hgb 12.8 L Hct 37.5 L RDW 15.6 H Seg Neutrophils % 84.1 H Lymphocytes % 6.9 L Absolute Neutrophils 11.1 H Potassium 2.4 L* Chloride 85 L Carbon Dioxide 35 H BUN 112 H Creatinine 3.08 H Est GFR ( Amer) 24 L Est GFR (Non-Af Amer) 20 L Glucose 194 H Total Bilirubin 1.7 H Direct Bilirubin 0.5 H AST 16 L ALT 20 L Creatine Kinase 36 L Critical Care Note - Critical Care Note Total time excluding time spent on procedures (mins): 40 Discharge - Discharge Clinical Impression: Dehydration, Prerenal azotemia, Hypokalemia Admitting Provider: Hospitalist Unit Admitted: IMCU Referrals: VON KRAMER MD [Primary Care Provider] - Follow up as needed
[2016-08-02] MEDS ORDERED: ALBUTEROL SULFATE 0.083% NEB 2.5 MG/3 ML AMPUL NEB PRN (14:08)
[2016-08-02] MEDS ORDERED: NORMAL SALINE 1000 ML 1,000 ML IV PRN (14:08)
[2016-08-02] MEDS ORDERED: ONDANSETRON HCL INJ/PF 4 MG/2 ML SDV IV PRN (14:08)
[2016-08-02] MEDS ORDERED: ONDANSETRON 4 MG TAB.RAPDIS PO PRN (14:08)
[2016-08-02] MEDS ORDERED: ACETAMINOPHEN 325 MG TABLET PO PRN (14:08)
[2016-08-02] MEDS ORDERED: INSULIN LISPRO 100 UNIT/ML 3 ML VIAL SUBCUT PRN (14:15)
[2016-08-02] MEDS ORDERED: DEXTROSE 50%-WATER 25 GM/50 ML DISP.SYRIN IV PRN ×2 (14:15)
[2016-08-02] MEDS ORDERED: DEXTROSE 40% GEL 15 GM TUBE PO PRN ×2 (14:15)
[2016-08-02] MEDS ORDERED: GLUCAGON,HUMAN RECOMB 1 MG INJ IM PRN (14:15)
--- NOTE | 2016-08-02 14:56 | PDOC H&P ---
History of Present Illness Admission Date/PCP: VON ARNOLDKHURRAM Patient complains of: Not eating for the last 4 days. History of Present Illness: SANJUANA KING JR is a 76 year old male who is a resident at the [facility] who presents with acute renal failure. The patient reports over the last 4 days he has felt poorly and has been eating and drinking very little. The patient also reports having generalized weakness but denies having any fevers or chills. He denies any cough. Denies any dysuria. Denies abdominal pain. He is noted to have an elevated creatinine above his baseline. The patient denies having any dysuria or flank pain. Past Medical History Cardiac Medical History: Reports: Atrial Fibrillation, Congestive Heart Failure , Coronary Artery Disease, Hypertension Pulmonary Medical History: Reports: Chronic Obstructive Pulmonary Disease (COPD) Neurological Medical History: Reports: None Endocrine Medical History: Reports: Diabetes Mellitus Type 2 Renal/ Medical History: Reports: Chronic Kidney Disease Malignancy Medical History: Reports: None GI Medical History: Reports: None Psychiatric Medical History: Reports: None Hematology: Reports: Anemia Infectious Medical History: Reports: None Past Surgical History Past Surgical History: Reports: Gastric Bypass Surgery, Orthopedic Surgery - multiple bilat knees Left total hip replacement, Pacemaker Social History Information Source: Patient Lives with: Other - [facility] Smoking Status: Former Smoker - Stop smoking 2 weeks ago Frequency of Alcohol Use: None Hx Recreational Drug Use: No Drugs: None Hx Prescription Drug Abuse: No - Advance Directive Resuscitation Status: Do Not Resuscitate Surrogate healthcare decision maker:: His son Family History Family History: Hypertension Family History: Father at age 73 and he is uncertain as to the health history. Mother at age 84 and had "blood cancer". Parental Family History Reviewed: Yes Children Family History Reviewed: No Sibling(s) Family History Reviewed.: No Medication/Allergy Allergies/Adverse Reactions: Hymenoptera Allergenic Extract [From [place] Venom Protein] Allergy ( Severe, Verified 03/01/15 14:56) Anaphylaxis morphine [Morphine] Allergy (Severe, Verified 03/01/15 14:56) Hallucinations Penicillins Allergy (Severe, Verified 03/01/15 14:56) Heart Attack [place] Krish Protein [From [place] Venom Protein] Allergy (Severe, Verified 03/01/15 14:56) Anaphylaxis Review of Systems Constitutional: ABSENT: chills, fever(s), headache(s), weight gain, weight loss Eyes: ABSENT: visual disturbances Ears: ABSENT: hearing changes Cardiovascular: ABSENT: chest pain, dyspnea on exertion, edema, orthropnea, palpitations Respiratory: ABSENT: cough, hemoptysis Gastrointestinal: PRESENT: nausea. ABSENT: abdominal pain, constipation, diarrhea, hematemesis, hematochezia, vomiting Genitourinary: PRESENT: dysuria. ABSENT: hematuria Musculoskeletal: ABSENT: joint swelling Integumentary: ABSENT: rash, wounds Neurological: ABSENT: abnormal gait, abnormal speech, confusion, dizziness, focal weakness, syncope Psychiatric: ABSENT: anxiety, depression Endocrine: ABSENT: cold intolerance, heat intolerance, polydipsia, polyuria Hematologic/Lymphatic: ABSENT: easy bleeding, easy bruising Physical Exam General appearance: PRESENT: no acute distress Head exam: PRESENT: atraumatic, normocephalic Eye exam: PRESENT: conjunctiva pink, EOMI, PERRLA. ABSENT: scleral icterus Ear exam: PRESENT: normal external ear exam Mouth exam: PRESENT: moist, tongue midline Neck exam: ABSENT: carotid bruit, JVD, lymphadenopathy, thyromegaly Respiratory exam: PRESENT: clear to auscultation [place]. ABSENT: rales, rhonchi, wheezes Cardiovascular exam: PRESENT: RRR. ABSENT: diastolic murmur, rubs, systolic murmur Pulses: PRESENT: normal dorsalis pedis pul Vascular exam: PRESENT: normal capillary refill GI/Abdominal exam: PRESENT: normal bowel sounds, soft. ABSENT: distended, guarding, mass, organolmegaly, rebound, tenderness Rectal exam: PRESENT: deferred Extremities exam: ABSENT: calf tenderness, clubbing, pedal edema Neurological exam: PRESENT: alert, awake, oriented to person, oriented to place , oriented to time, oriented to situation, CN II-XII grossly intact. ABSENT: motor sensory deficit Psychiatric exam: PRESENT: appropriate affect Skin exam: PRESENT: dry, intact, warm, other - Pigmented brawny changes in the lower extremities on the anterior shins. ABSENT: cyanosis, rash Results Laboratory Results: 08/02/16 10:48 08/02/16 10:48 08/02/16 08/02/16 10:48 10:48 WBC 13.1 H RBC 3.86 L Hgb 12.8 L Hct 37.5 L MCV 97 MCH 33.1 MCHC 34.1 RDW 15.6 H Plt Count 154 Seg Neutrophils % 84.1 H Lymphocytes % 6.9 L Monocytes % 7.7 Eosinophils % 0.5 Basophils % 0.8 Absolute Neutrophils 11.1 H Absolute Lymphocytes 0.9 Absolute Monocytes 1.0 Absolute Eosinophils 0.1 Absolute Basophils 0.1 Sodium 137.2 Potassium 2.4 L* Chloride 85 L Carbon Dioxide 35 H Anion Gap 17 BUN 112 H Creatinine 3.08 H Est GFR ( Amer) 24 L Est GFR (Non-Af Amer) 20 L Glucose 194 H Calcium 9.6 Total Bilirubin 1.7 H AST 16 L ALT 20 L Alkaline Phosphatase 95 Total Protein 7.6 Albumin 4.0 08/02/16 08/02/16 10:48 10:48 Creatine Kinase 36 L CK-MB (CK-2) 1.62 Troponin I 0.061 Assessment & Plan - Diagnosis (1) Dehydration Is this a current diagnosis for this admission?: YesPlan: Patient has had decreased p.o. intake for the last 4 days. Not clear exactly why. He reports feeling somewhat nauseous. Awaiting on the urinalysis to see if he has a urinary tract infection as the cause. Give IV fluids (2) Hypokalemia Is this a current diagnosis for this admission?: YesPlan: We will give IV potassium and follow-up (3) ERIBERTO (acute kidney injury) Is this a current diagnosis for this admission?: YesPlan: Has stage III chronic renal failure. He appears to have acute on chronic failure currently. Will get a renal ultrasound to rule out any obstruction. (4) A-fib Qualifiers: Atrial fibrillation type: unspecified Qualified Code(s): I48.91 - Unspecified atrial fibrillation Is this a current diagnosis for this admission?: YesPlan: Currently is in a normal sinus rhythm. (5) Anemia Qualifiers: Anemia type: unspecified type Qualified Code(s): D64.9 - Anemia, unspecified Is this a current diagnosis for this admission?: YesPlan: Likely is anemia of chronic disease. (6) CAD (coronary artery disease) Qualifiers: Coronary Disease-Associated Artery/Lesion type: [place] artery [place] vs. transplanted heart: [place] heart Associated angina: without angina Qualified Code(s): I25.10 - Atherosclerotic heart disease of [place] coronary artery without angina pectoris Is this a current diagnosis for this admission?: YesPlan: Denies any chest pain. (7) CHF (congestive heart failure) Qualifiers: Congestive heart failure type: unspecified congestive heart failure type Congestive heart failure chronicity: unspecified congestive heart failure chronicity Qualified Code(s): I50.9 - Heart failure, unspecified Is this a current diagnosis for this admission?: YesPlan: Patient is volume depleted at this time. We will give IV fluids and watch closely in light of his congestive heart failure (8) Chronic venous stasis dermatitis of both lower extremities Is this a current diagnosis for this admission?: Yes (9) Hypertension Qualifiers: Hypertension type: essential hypertension Qualified Code(s): I10 - Essential (primary) hypertension Is this a current diagnosis for this admission?: YesPlan: Patient is currently dehydrated and will give IV fluids. (10) Type II diabetes mellitus Qualifiers: Diabetes mellitus complication status: with unspecified complications Diabetes mellitus skilled nursing insulin use: without termite renewal inspector use Qualified Code(s): E11.8 - Type 2 diabetes mellitus with unspecified complications; Z79.4 - buttermilk drier operator (current) use of insulin Is this a current diagnosis for this admission?: YesPlan: We will cover with sliding scale insulin (11) DNR (do not resuscitate) Is this a current diagnosis for this admission?: Yes - Time Time Spent: 50 to 70 Minutes - Inpatient Certification Medical Necessity: Need For IV Fluids - Plan Summary Plan Summary: We will admit an inpatient anticipate a greater than 2 midnight stay because of his need for IV fluids
[2016-08-02] MEDS: POTASSI CL 20 MEQ/50 ML RIDER 50 ML IV SCH ×2 (15:44→18:37)
[2016-08-02 15:47] LABS: THYROID STIMULATING HORMONE 1.58 uIU/mL (0.47-4.68)
[2016-08-02 16:41] LABS: APPEARANCE,URINE CLEAR; BILIRUBIN,URINE NEGATIVE (NEGATIVE); GLUCOSE, URINE NEGATIVE (NEGATIVE); KETONES,URINE NEGATIVE (NEGATIVE); URINE SPECIFIC GRAVITY 1.008
[2016-08-02 16:42] LABS: LEUKOCYTE ESTERASE,URINE NEGATIVE (NEGATIVE); NITRITE,URINE NEGATIVE (NEGATIVE); PROTEIN,URINE NEGATIVE (NEGATIVE); UROBILINOGEN,URINE NEGATIVE mg/dL (<2.0)
--- NOTE | 2016-08-02 18:44 | EKG REPORT ---
SEVERITY:- ABNORMAL ECG - AFIB/FLUTTER AND VENTRICULAR-PACED RHYTHM : Confirmed by: Mary Ellen Mahoney 02-Aug-2016 18:44:08
[2016-08-02] MEDS: FAMOTIDINE 20 MG TABLET PO SCH (21:15)
--- NOTE | 2016-08-02 21:36 | RADIOLOGY REPORT (SQ) ---
EXAM DESCRIPTION: U/S RETROPERITON LTD COMPLETED DATE/TIME: 08/02/2016 9:27 pm REASON FOR STUDY: renal failure COMPARISON: 02/04/2015. TECHNIQUE: Dynamic and static grayscale images acquired of the kidneys and recorded on PACS. Additio nal selected color Doppler and spectral images recorded. LIMITATIONS: Limited exam. FINDINGS: RIGHT KIDNEY: Normal size. Normal echogenicity. 3.5 cm cortical cyst. No solid or garcia spicious masses. No hydronephrosis. No calcifications. LEFT KIDNEY: Normal size. Normal echogenicity. 2.1 cm cortical cyst. No solid or suspicious mas ses. No hydronephrosis. No calcifications. OTHER FINDINGS: No other significant finding. IMPRESSION: CORTICAL CYSTS IN BOTH KIDNEYS. NO HYDRONEPHROSIS. TECHNICAL DOCUMENTATION: JOB ID: [id number] [employer]- All Rights Reserved
[2016-08-03 06:09] LABS: HEMATOCRIT 33.5 % (37.9-51.0); HEMOGLOBIN 11.5 g/dL (13.5-17.0); MEAN CORPUSCULAR HEMOGLOBIN 33.5 pg (27.0-33.4); MEAN CORPUSCULAR HGB CONC 34.4 g/dL (32.0-36.0); MEAN CORPUSCULAR VOLUME 98 fl (80-97); RED BLOOD COUNT 3.43 10^6/uL (4.35-5.55); RED CELL DISTRIBUTION WIDTH 15.7 % (11.5-14.0); WHITE BLOOD COUNT 9.7 10^3/uL (4.0-10.5)
[2016-08-03 06:30] LABS: ALANINE AMINOTRANSFERASE 24 U/L (21-72); ALBUMIN 3.2 g/dL (3.5-5.0); ALKALINE PHOSPHATASE 76 U/L (38-126); ANION GAP 14 (5-19); ASPARTATE AMINO TRANSFERASE 15 U/L (17-59); BILIRUBIN,DIRECT 0.5 mg/dL (0.0-0.4); BILIRUBIN,TOTAL 1.5 mg/dL (0.2-1.3); BLOOD UREA NITROGEN 96 mg/dL (7-20); CARBON DIOXIDE 29 mmol/L (22-30); CHLORIDE 94 mmol/L (98-107); CREATININE RESULT 2.33 mg/dL (0.52-1.25); GLUCOSE 152 mg/dL (75-110); MAGNESIUM 1.9 mg/dL (1.6-2.3); SODIUM 136.9 mmol/L (137-145); TOTAL PROTEIN 6.3 g/dL (6.3-8.2)
[2016-08-03 06:32] LABS: POTASSIUM 2.4 mmol/L (3.6-5.0)
[2016-08-03] MEDS: POTASSI CL 20 MEQ/50 ML RIDER 20 MEQ/50 ML RTUPB IV SCH ×3 (08:12→12:37)
[2016-08-03] MEDS: POTASSI CL 20 MEQ/NS 1L 1,000 ML IV PRN ×2 (08:12→18:31)
[2016-08-03] MEDS: ENOXAPARIN SODIUM INJ 30 MG/0.3 ML DISP.SYRIN SUBCUT SCH (09:59)
[2016-08-03] MEDS: FAMOTIDINE 20 MG TABLET PO SCH (10:00)
[2016-08-03] MEDS ORDERED: TRAMADOL HCL 50 MG TABLET PO PRN (11:00)
--- NOTE | 2016-08-03 11:24 | PDOC PROGRESS REPORT ---
Subjective Progress Note for:: 08/03/16 Subjective:: Patient is feeling generally well, back to normal. Sitting in bedside chair and having a normal conversation. Patient denies fever, chills, headache, new focal weakness, chest pain, shortness of breath, abdominal pain, nausea, vomiting, diarrhea, constipation. Physical Exam Vital Signs: Temp Pulse Resp BP Pulse Ox 97.8 F 61 20 120/43 L 95 08/03/16 07:31 08/03/16 07:31 08/03/16 07:31 08/03/16 07:31 08/03/16 09:31 Intake & Output 08/02/16 08/03/16 08/04/16 06:59 06:59 06:59 Intake Total 1400 Output Total 1300 Balance 100 Weight 69.9 kg GENERAL: No acute distress HEENT: Conjunctiva clear, nonicteric, moist mucous membranes, no JVD, midline trachea RESPIRATORY: Clear to auscultation bilaterally, no wheezes, no rhonchi CARDIAC: Regular rate and rhythm, no murmurs/gallops/rubs ABDOMEN: Soft, nondistended, nontender, positive bowel sounds, no rebound, no guarding EXTREMETIES: No edema, cyanosis, clubbing NEUROLOGIC: Alert, oriented to person/place/time, CN's grossly intact, no focal deficits SKIN: No rash, wounds PSYCH: Normal mood, normal affect Results Laboratory Results: 08/03/16 05:54 08/03/16 05:54 08/02/16 08/03/16 08/03/16 15:52 05:54 05:54 WBC 9.7 RBC 3.43 L Hgb 11.5 L Hct 33.5 L MCV 98 H MCH 33.5 H MCHC 34.4 RDW 15.7 H Plt Count 133 L Sodium 136.9 L Potassium 2.4 L* Chloride 94 L Carbon Dioxide 29 Anion Gap 14 BUN 96 H Creatinine 2.33 H Est GFR ( Amer) 33 L Est GFR (Non-Af Amer) 27 L Glucose 152 H Calcium 9.0 Magnesium 1.9 Total Bilirubin 1.5 H AST 15 L ALT 24 Alkaline Phosphatase 76 Total Protein 6.3 Albumin 3.2 L Urine Color YELLOW Urine Appearance CLEAR Urine pH 6.0 Ur Specific [place] 1.008 Urine Protein NEGATIVE Urine Glucose (UA) NEGATIVE Urine Ketones NEGATIVE Urine Blood NEGATIVE Urine Nitrite NEGATIVE Ur Leukocyte Esterase NEGATIVE Impressions: Renal Ultrasound 08/02/16 00:00 IMPRESSION: CORTICAL CYSTS IN BOTH KIDNEYS. NO HYDRONEPHROSIS. Assessment & Plan - Diagnosis (1) ERIBERTO (acute kidney injury) Is this a current diagnosis for this admission?: YesPlan: Improving with IV fluids. Continue to hold diuretics. (2) Dehydration Is this a current diagnosis for this admission?: YesPlan: Continue to hold diuretics. Continue IV fluids. (3) COPD (chronic obstructive pulmonary disease) Is this a current diagnosis for this admission?: Yes (4) Atrial flutter by electrocardiogram Is this a current diagnosis for this admission?: YesPlan: Heart rate stable. Resume Coreg. Resume aspirin. (5) Pacemaker Is this a current diagnosis for this admission?: Yes (6) DNR (do not resuscitate) Is this a current diagnosis for this admission?: Yes (7) Hypokalemia Is this a current diagnosis for this admission?: YesPlan: Replace as needed. (8) CHF (congestive heart failure) Qualifiers: Congestive heart failure type: unspecified congestive heart failure type Congestive heart failure chronicity: unspecified congestive heart failure chronicity Qualified Code(s): I50.9 - Heart failure, unspecified Is this a current diagnosis for this admission?: YesPlan: Patient has chronic CHF secondary to diastolic dysfunction. He is currently over diuresed. Continue to hold diuretics for now. Restart Coreg at lower dose of 6.25 mg twice daily secondary to bradycardia. - Time Time Spent with patient: 35 or more minutes Anticipated discharge: Other - [facility] Within: within 24 hours
[2016-08-03] MEDS: SENNOSIDES/DOCUSATE 8.6-50 MG 1 EACH TABLET PO SCH (17:33)
[2016-08-03] MEDS: CARVEDILOL 6.25 MG TABLET PO SCH (21:05)
[2016-08-03] MEDS ORDERED: TAMSULOSIN HCL 0.4 MG CAP.SR.24H PO SCH (22:00)
[2016-08-04] MEDS: POTASSI CL 20 MEQ/NS 1L 1,000 ML IV PRN (05:00)
[2016-08-04 05:29] LABS: ABSOLUTE BASOPHILS # (AUTO) 0.1 10^3/uL (0.0-0.2); ABSOLUTE EOSINOPHILS # (AUTO) 0.2 10^3/uL (0.0-0.6); ABSOLUTE LYMPHOCYTES (AUTO) 1.1 10^3/uL (0.5-4.7); ABSOLUTE MONOCYTES (AUTO) 0.7 10^3/uL (0.1-1.4); ABSOLUTE NEUT (AUTO) 5.9 10^3/uL (1.7-8.2); BASOPHILS % (AUTO) 0.6 % (0-2); EOSINOPHILS % (AUTO) 2.1 % (0-6); HEMATOCRIT 32.2 % (37.9-51.0); HEMOGLOBIN 11.1 g/dL (13.5-17.0); HGB HCT DIFFERENCE 1.1; MEAN CORPUSCULAR HEMOGLOBIN 33.6 pg (27.0-33.4); MEAN CORPUSCULAR HGB CONC 34.4 g/dL (32.0-36.0); MEAN CORPUSCULAR VOLUME 98 fl (80-97); MONOCYTES % (AUTO) 8.9 % (3-13); SEGMENTED NEUTROPHILS % (AUTO) 74.4 % (42-78); WHITE BLOOD COUNT 7.9 10^3/uL (4.0-10.5)
[2016-08-04 05:51] LABS: ANION GAP 12 (5-19); CALCIUM 9.2 mg/dL (8.4-10.2); CARBON DIOXIDE 26 mmol/L (22-30); CHLORIDE 102 mmol/L (98-107); CREATININE RESULT 1.96 mg/dL (0.52-1.25); GLUCOSE 135 mg/dL (75-110); POTASSIUM 3.1 mmol/L (3.6-5.0)
[2016-08-04 05:54] LABS: BLOOD UREA NITROGEN 75 mg/dL (7-20)
[2016-08-04] MEDS ORDERED: POTASSIUM CHLORIDE 10 MEQ TABLET.SA PO ONE (08:00)
[2016-08-04] MEDS: ENOXAPARIN SODIUM INJ 30 MG/0.3 ML DISP.SYRIN SUBCUT SCH (09:27)
[2016-08-04] MEDS: CARVEDILOL 6.25 MG TABLET PO SCH (09:28)
[2016-08-04] MEDS: SENNOSIDES/DOCUSATE 8.6-50 MG 1 EACH TABLET PO SCH (09:28)
[2016-08-04] MEDS ORDERED: FERROUS SULFATE 325 MG TABLET PO SCH (10:00)
[2016-08-04] MEDS ORDERED: ASPIRIN 81 MG TABLET, ENT COATED PO SCH (10:00)
[2016-08-04] MEDS ORDERED: FOLIC ACID 1 MG TABLET PO SCH (10:00)
[2016-08-04] MEDS ORDERED: FOLIC ACID/VITAMIN B COMP W-C CAPSULE PO SCH (10:00)
[2016-08-04] MEDS ORDERED: LANSOPRAZOLE 30 MG TAB.RAP.DR PO SCH (10:00)
--- NOTE | 2016-08-04 11:53 | PDOC DISCHARGE SUMMARY ---
General - Admit/Disc Date/PCP Admission Date/Primary Care Provider: 08/02/16 14:08 VON KRAMER Discharge Date: 08/04/16 - Discharge Diagnosis (1) ERIBERTO (acute kidney injury) Is this a current diagnosis for this admission?: Yes (2) Dehydration Is this a current diagnosis for this admission?: Yes (3) COPD (chronic obstructive pulmonary disease) Is this a current diagnosis for this admission?: Yes (4) Atrial flutter by electrocardiogram Is this a current diagnosis for this admission?: Yes (5) Pacemaker Is this a current diagnosis for this admission?: Yes (6) Hypokalemia Is this a current diagnosis for this admission?: Yes (7) CHF (congestive heart failure) Is this a current diagnosis for this admission?: Yes (8) DNR (do not resuscitate) Is this a current diagnosis for this admission?: Yes - Additional Information Resuscitation Status: Do Not Resuscitate Discharge Diet: Cardiac Discharge Activity: Activity As Tolerated Home Medications: Acetaminophen [Tylenol 325 mg Tablet] 650 mg PO Q6HP PRN 08/02/16 Allopurinol [Zyloprim 100 mg Tablet] 100 mg PO DAILY 08/02/16 Aspirin [Ecotrin 81 mg EC Tablet] 81 mg PO DAILY 08/02/16 B Complex & C No.20/Folic Acid [Renal Caps Softgel] 1 cap PO DAILY 08/02/16 Bisacodyl [Dulcolax 10 mg Supp.rect] 10 mg MT DAILYP PRN 08/02/16 Ferrous Sulfate [Feosol 325 mg Tablet] 325 mg PO DAILY 08/02/16 Folic Acid [Folvite 1 mg Tablet] 1 mg PO DAILY 08/02/16 Ipratropium [place] [Atrovent 0.02% Neb 0.5 mg/2.5 ml Ampul] 0.5 mg PO Q6 Levalbuterol HCl [Levalbuterol Concentrate] 1.25 mg NEB Q6HP PRN 08/02/16 Omeprazole 40 mg PO DAILY 08/02/16 Sennosides/Docusate Sodium [Sennalax-S Tablet] 2 tab PO BID 08/02/16 Tamsulosin HCl [Flomax 0.4 mg Cap.sr] 0.4 mg PO QHS 08/02/16 Tramadol HCl [Ultram 50 mg Tablet] 25 mg PO Q6HP PRN 08/02/16 Carvedilol [Coreg 6.25 mg Tablet] 6.25 mg PO Q12 #60 tablet 08/04/16 Furosemide [Lasix] 40 mg PO DAILY #30 tablet 08/04/16 History of Present Illness Patient complains of: Decreased appetite History of Present Illness: SANJUANA KING JR is a 76 year old male who is a resident at the [facility] who presents with acute renal failure. The patient reports over the last 4 days he has felt poorly and has been eating and drinking very little. The patient also reports having generalized weakness but denies having any fevers or chills. He denies any cough. Denies any dysuria. Denies abdominal pain. He is noted to have an elevated creatinine above his baseline. The patient denies having any dysuria or flank pain. Hospital Course Hospital Course: Patient was admitted primarily for acute kidney injury associated with dehydration. Patient was on outpatient diuretics for congestive heart failure. He apparently was having poor oral intake and as a result became dehydrated. Patient was hydrated with IV fluids and kidney function significantly improved. Patient's clinical status improved. He was alert and oriented at time of discharge. He was eating and drinking well. I think he would benefit from home health and home physical therapy services. According to medical planner he was to have home health services at [facility] but was recently transitioned to hospice services instead. I am not entirely sure the patient really needs to be in hospice at this time. He would probably be better served by medical management of his CHF with home health services and home physical therapy services. I will decrease patient's maintenance diuretics to Lasix 40 mg once daily and discontinue Zaroxolyn altogether. Coreg was decreased as well secondary to bradycardia. Physical Exam Vital Signs: Temp Pulse Resp BP Pulse Ox 97.7 F 63 17 120/60 97 08/04/16 07:38 08/04/16 07:38 08/04/16 07:38 08/04/16 07:38 08/04/16 07:38 Intake & Output 08/03/16 08/04/16 08/05/16 06:59 06:59 06:59 Intake Total 1400 3648 Output Total 1300 1260 Balance 100 2388 Weight 69.9 kg 73.2 kg GENERAL: No acute distress HEENT: Conjunctiva clear, nonicteric, moist mucous membranes, no JVD, midline trachea RESPIRATORY: Clear to auscultation bilaterally, no wheezes, no rhonchi CARDIAC: Regular rate and rhythm, no murmurs/gallops/rubs ABDOMEN: Soft, nondistended, nontender, positive bowel sounds, no rebound, no guarding EXTREMETIES: No edema, cyanosis, clubbing NEUROLOGIC: Alert, oriented to person/place/time, CN's grossly intact, no focal deficits SKIN: No rash, wounds PSYCH: Normal mood, normal affect Results Laboratory Results: 08/04/16 04:56 08/04/16 04:56 08/04/16 08/04/16 04:56 04:56 WBC 7.9 RBC 3.30 L Hgb 11.1 L Hct 32.2 L MCV 98 H MCH 33.6 H MCHC 34.4 RDW 16.0 H Plt Count 128 L Seg Neutrophils % 74.4 Lymphocytes % 14.0 Monocytes % 8.9 Eosinophils % 2.1 Basophils % 0.6 Absolute Neutrophils 5.9 Absolute Lymphocytes 1.1 Absolute Monocytes 0.7 Absolute Eosinophils 0.2 Absolute Basophils 0.1 Sodium 140.0 Potassium 3.1 L Chloride 102 Carbon Dioxide 26 Anion Gap 12 BUN 75 H D Creatinine 1.96 H Est GFR ( Amer) 40 L Est GFR (Non-Af Amer) 33 L Glucose 135 H Calcium 9.2 08/02/16 15:52 Morrison Catheter Urine Culture - Final NO GROWTH 2 DAYS Impressions: Renal Ultrasound 08/02/16 00:00 IMPRESSION: CORTICAL CYSTS IN BOTH KIDNEYS. NO HYDRONEPHROSIS. Qualifiers PATEINT BEING DISCHARGED WITH ANY OF THE FOLLOWING DIAGNOSIS?: No Plan Discharge Plan: Home health and home physical therapy services. Time Spent: Less than 30 Minutes
[2016-08-04 14:46] VITALS: BP 141/83
== END 2016-08-04 16:50 | disposition home health service (06) | DRG 683 ==
LOC: ER 10:27 → EH 14:08 → UNDOADMIN 14:30 → 4W 16:57
PROVIDERS: ADMIT Internal Medicine; ATTEND Internal Medicine
PROC: 3E0F73Z Introduction of Anti-inflammatory into Respiratory Tract, Via Natural or Artificial Opening (ICD-10-PCS; principal; 2016-08-02)
DX: N17.9 Acute kidney failure, unspecified (principal); I48.92 Unspecified atrial flutter; Q61.02 Congenital multiple renal cysts; I13.0 Hypertensive heart and chronic kidney disease with heart failure and stage 1 through stage 4 chronic kidney disease, or unspecified chronic kidney disease; I50.32 Chronic diastolic (congestive) heart failure; E86.0 Dehydration; J44.9 Chronic obstructive pulmonary disease, unspecified; E87.6 Hypokalemia; I48.91 Unspecified atrial fibrillation; I25.10 Atherosclerotic heart disease of native coronary artery without angina pectoris; I87.8 Other specified disorders of veins; E11.22 Type 2 diabetes mellitus with diabetic chronic kidney disease; D63.1 Anemia in chronic kidney disease; Z66 Do not resuscitate; Z95.0 Presence of cardiac pacemaker; Z79.899 Other long term (current) drug therapy; Z98.84 Bariatric surgery status; Z96.642 Presence of left artificial hip joint; Z87.891 Personal history of nicotine dependence; Z88.8 Allergy status to other drugs, medicaments and biological substances; Z88.6 Allergy status to analgesic agent; Z88.0 Allergy status to penicillin; Z91.030 Bee allergy status; Z79.4 Long term (current) use of insulin; Z82.49 Family history of ischemic heart disease and other diseases of the circulatory system
CPT/HCPCS: 36415; 76775; 80048; 80053; 80076; 81001; 82550; 82553; 82962; 83735; 84439; 84443; 84484; 85025; 85027; 87086; 93005; 93010; 99291; J1650; J3480; J3490; J7030

== ENCOUNTER 2016-09-08 01:40 | Emergency (ER) | payer MEDICARE, OTHER ==
[2016-09-08] MEDS ORDERED: LIDOCAINE 5% (700 MG) TRANSDERMAL ADH..PATCH TP ONE (01:53)
[2016-09-08] MEDS ORDERED: HYDROMORPHONE HCL 2 MG TABLET PO ONE (01:53)
[2016-09-08] MEDS ORDERED: CYCLOBENZAPRINE HCL 10 MG TABLET PO ONE (01:53)
--- NOTE | 2016-09-08 02:01 | ER Document Report ---
ED General - General Stated Complaint: LOWER BACK PAIN Time Seen by Provider: 09/08/16 01:47 Notes: 76-year-old male with history of hip replacement chronic pain and back pain presents to the ED from [facility] for back pain and bilateral leg cramping is been going on for months. He states his pain is adequately controlled controlled at his facility. He receives there supposedly sublingual versus rectal Dilaudid every 4 hours as well as 1-2 hours for breakthrough pain lasted which she received at midnight along with Valium. He has no new numbness or tingling. TRAVEL OUTSIDE OF THE [place] IN LAST 30 DAYS: No - Related Data Allergies/Adverse Reactions: Hymenoptera Allergenic Extract [From [place] Venom Protein] Allergy ( Severe, Verified 08/02/16 22:12) Anaphylaxis morphine [Morphine] Allergy (Severe, Verified 08/02/16 22:12) Hallucinations Penicillins Allergy (Severe, Verified 08/02/16 22:12) Heart Attack [place] Krish Protein [From [place] Venom Protein] Allergy (Severe, Verified 08/02/16 22:12) Anaphylaxis hydrocodone Allergy (Verified 08/02/16 22:12) oxycodone Allergy (Verified 08/02/16 22:12) hymenoptera stings Allergy (Uncoded 08/02/16 22:12) Past Medical History - General Information source: Patient - Social History Smoking Status: Current Every Day Smoker Family History: Hypertension - Past Medical History Cardiac Medical History: Reports: Hx Atrial Fibrillation, Hx Congestive Heart Failure, Hx Coronary Artery Disease, Hx Hypertension Pulmonary Medical History: Reports: Hx COPD Endocrine Medical History: Reports: Hx Diabetes Mellitus Type 2 Renal/ Medical History: Denies: Hx End Stage Renal Disease, Hx Renal Insufficiency Psychiatric Medical History: Denies: Hx Depression Past Surgical History: Reports: Hx Cardiac Surgery - pacemaker, Hx Gastric Bypass Surgery, Hx Orthopedic Surgery - multiple bilat knees Left total hip replacement, Hx Pacemaker - Immunizations Hx Diphtheria, Pertussis, Tetanus Vaccination: Yes Review of Systems - Review of Systems Notes: REVIEW OF SYSTEMS GEN: Denies fever, chills, weight loss ENT: Denies sore throat, nasal discharge, ear pain EYES: Denies blurry vision, eye pain, discharge CV: Denies chest pain, palpitations, edema RESP: Denies cough, shortness of breath, wheezing GI: Denies abdominal pain, nausea, vomiting, diarrhea MSK: Leg pain SKIN: Denies rash, skin lesions LYMPH: Denies swollen glands/lymph nodes NEURO: Denies headache, focal weakness or numbness, dizziness PSYCH: Denies depression, suicidal or homicidal ideation PHYSICAL EXAMINATION General: No acute distress, well-nourished Head: Atraumatic, normocephalic ENT: Mouth normal, oropharynx moist, no exudates or tonsillar enlargement Eyes: Conjunctiva normal, pupils equal, lids normal Neck: No JVD, supple, no guarding CVS: Normal rate, regular rhythm, no murmurs Resp: No resp distress, equal and normal breath sounds bilaterally GI: Nondistended, soft, no tenderness to palpation, no rebound or guarding Ext: No deformities, no edema, normal range of motion in upper and lower ext foot is in a boot secondary to ulcer that is known. Back: No CVA or midline TTP decreased range of motion. Skin: No rash, warm Lymphatic: No lymphadeopathy noted Neuro: Awake, alert. Face symmetric. GCS 15. Course - Re-evaluation Re-evalutation: 09/08/16 01:56 Recurrent/chronic back and leg pain. Neurologically intact. No new injuries. Suspect inadequate pain control. The patient's medication list which includes Valium tramadol Dilaudid as well as more frequent Dilaudid sublingually for breakthrough pain. There is no medication administration record was unclear how often he is actually requesting more receiving the medicine but he states he got a dose at midnight. Will give patient oral and transcutaneous regimen in the ED, consisting of Dilaudid and Flexeril and lidocaine patch. I explained to him that we would not be able to erase or significantly decrease his pain in the emergency department but he may need to be on a different regimen in his facility. I have discussed with the patient there likely diagnosis, aftercare plan, follow- up plans and my usual and customary return precautions. They verbalized understanding of this. 09/08/16 02:20 Discharge - Discharge Clinical Impression: Back pain, chronic Qualifiers: Back pain location: low back pain Back pain laterality: bilateral Sciatica presence: without sciatica Qualified Code(s): M54.5 - Low back pain Condition: Good Disposition: HOME, SELF-CARE Instructions: Chronic Back Pain ([facility]) Additional Instructions: Speak with your facility about altering her pain management regimen.
[2016-09-08 03:12] VITALS: BP 136/55
== END 2016-09-08 03:12 | disposition home or self-care (01) ==
LOC: ER 01:40
DX: G89.29 Other chronic pain (principal); M54.5 Low back pain; M79.606 Pain in leg, unspecified; R25.2 Cramp and spasm; Z79.891 Long term (current) use of opiate analgesic; E11.621 Type 2 diabetes mellitus with foot ulcer; L97.509 Non-pressure chronic ulcer of other part of unspecified foot with unspecified severity; I25.10 Atherosclerotic heart disease of native coronary artery without angina pectoris; I10 Essential (primary) hypertension; J44.9 Chronic obstructive pulmonary disease, unspecified; F17.200 Nicotine dependence, unspecified, uncomplicated; Z95.0 Presence of cardiac pacemaker; Z98.84 Bariatric surgery status; Z96.642 Presence of left artificial hip joint; Z88.5 Allergy status to narcotic agent; Z88.0 Allergy status to penicillin; Z87.892 Personal history of anaphylaxis; Z91.038 Other insect allergy status
CPT/HCPCS: 99284; A9270 ×2

== ENCOUNTER 2016-09-14 11:17 | Emergency (ER) | payer MEDICARE, OTHER ==
[2016-09-14] MEDS ORDERED: TRAMADOL HCL 50 MG TABLET PO ONE (11:33)
--- NOTE | 2016-09-14 12:22 | RADIOLOGY REPORT (SQ) ---
EXAM DESCRIPTION: CT HEAD WITHOUT COMPLETED DATE/TIME: 09/14/2016 12:07 pm REASON FOR STUDY: fall, unwitnessed, ?LOC COMPARISON: 03/01/2015 TECHNIQUE: Axial images acquired through the brain without intravenous contrast. Images reviewed wi th bone, brain and subdural windows. Images stored on PACS. All CT scanners at this facility use dose modulation, iterative reconstruction, and/or weight based d osing when appropriate to reduce radiation dose to as low as reasonably achievable (ALARA). [facility]: Dose Right [facility]: CareDose [facility]: Dose Right [facility]: Teradose 4D [facility]: Smart [employer] RADIATION DOSE: Up-to-date CT equipment and radiation dose reduction techniques were employed. CTDIv ol: 64.4 mGy. DLP: 1163 mGy-cm. mGy. LIMITATIONS: Motion artifact. FINDINGS: VENTRICLES: Mildly prominent, stable. CEREBRUM: No obvious acute hemorrhage. Motion artifact. Atrophic changes noted. Likely old lacunar infarct on the right. CEREBELLUM: No masses. No hemorrhage. No alteration of density. No evidence for acute infarction. EXTRAAXIAL SPACES: Mild age-related involutional change. No fluid collections. No masses. ORBITS AND GLOBE: No intra- or extraconal masses. Normal contour of globe without masses. CALVARIUM: Limited evaluation due to motion. Old fracture nasal bone. PARANASAL SINUSES: No fluid or mucosal thickening. SOFT TISSUES: No mass or hematoma. OTHER: No other significant finding. IMPRESSION: Limited study with motion artifact. No obvious acute intracranial hemorrhage. TECHNICAL DOCUMENTATION: JOB ID: [id number] Quality ID # [id number]: Final reports with documentation of one or more dose reduction techniques (e.g., Au tomated exposure control, adjustment of the mA and/or kV according to patient size, use of iterative reconstruction technique) 2010 [employer]- All Rights Reserved
--- NOTE | 2016-09-14 12:24 | RADIOLOGY REPORT (SQ) ---
EXAM DESCRIPTION: CT CERVICAL SPINE WITHOUT COMPLETED DATE/TIME: 09/14/2016 12:07 pm REASON FOR STUDY: fall, unwitnessed, ?LOC COMPARISON: None. TECHNIQUE: Axial images acquired through the cervical spine without intravenous contrast. Images re viewed with lung, soft tissue and bone windows. Reconstructed coronal and sagittal MPR images review ed. Images stored on PACS. All CT scanners at this facility use dose modulation, iterative reconstruction, and/or weight based d osing when appropriate to reduce radiation dose to as low as reasonably achievable (ALARA). [facility]: Dose Right [facility]: CareDose [facility]: Dose Right [facility]: Teradose 4D [facility]: [employer] RADIATION DOSE: Up-to-date CT equipment and radiation dose reduction techniques were employed. CTDIv ol: 18.7 mGy. DLP: 701 mGy-cm. mGy. LIMITATIONS: None. FINDINGS: ALIGNMENT: Slight anterior displacement of C7 on T1 which appears to be due to degenerativ e changes involving the facet joints. MINERALIZATION: Normal. VERTEBRAL BODIES: No fractures or dislocation. DISCS: Status post anterior fusion at C3-4, C4-5 and C5-6 with disc fusion devices and anterior screw and plate device. FACETS, LATERAL MASSES, POSTERIOR ELEMENTS: Degenerative changes involving the facet joints which ran ge from mild to severe. HARDWARE: None in the spine. VISUALIZED RIBS: No fractures. LUNG APICES AND SOFT TISSUES: No significant or acute findings. OTHER: Ligamentous calcification posteriorly. IMPRESSION: Degenerative changes and postsurgical changes without evidence of fracture. TECHNICAL DOCUMENTATION: JOB ID: [id number] Quality ID # [id number]: Final reports with documentation of one or more dose reduction techniques (e.g., Au tomated exposure control, adjustment of the mA and/or kV according to patient size, use of iterative reconstruction technique) 2010 [employer]- All Rights Reserved
--- NOTE | 2016-09-14 12:33 | RADIOLOGY REPORT (SQ) ---
EXAM DESCRIPTION: KNEE RIGHT 4 VIEWS COMPLETED DATE/TIME: 09/14/2016 12:18 pm REASON FOR STUDY: fall, unwitnessed, ?LOC COMPARISON: None. NUMBER OF VIEWS: Four views. TECHNIQUE: AP, lateral, and both oblique radiographic images acquired of the right knee. LIMITATIONS: None. FINDINGS: MINERALIZATION: Normal. BONES: No acute fracture or dislocation. No worrisome bone lesions. Bony spurring off the insertion s of the quadriceps tendon and the patellar tendon. JOINT: Status post right total knee replacement. No evidence of fracture or loosening. SOFT TISSUES: Arterial calcifications. OTHER: No other significant finding. IMPRESSION: 1. No evidence of acute fracture. 2. Status post right total knee replacement. TECHNICAL DOCUMENTATION: JOB ID: [id number] [employer]- All Rights Reserved
--- NOTE | 2016-09-14 12:36 | RADIOLOGY REPORT (SQ) ---
EXAM DESCRIPTION: PELVIS AP COMPLETED DATE/TIME: 09/14/2016 12:18 pm REASON FOR STUDY: fall, unwitnessed, ?LOC COMPARISON: None. NUMBER OF VIEWS: Two views TECHNIQUE: AP Pelvis LIMITATIONS: Poor positioning. FINDINGS: MINERALIZATION: Normal. HIPS: Old fracture involving the left hip with intramedullary lorna and cross linking screws. Mild deg enerative changes involving the hips. No acute fracture PELVIS AND SACRUM: No acute fracture or dislocation. No worrisome bone lesions. PUBIS AND ISCHIUM: No acute fracture. LOWER LUMBAR SPINE: Severe degenerative changes. SOFT TISSUES: No findings. OTHER: No other significant finding. IMPRESSION: No evidence of acute fracture involving the pelvis. TECHNICAL DOCUMENTATION: JOB ID: [id number] [employer]- All Rights Reserved
[2016-09-14] MEDS ORDERED: HYDROMORPHONE HCL 2 MG TABLET PO ONE (12:37)
--- NOTE | 2016-09-14 12:45 | RADIOLOGY REPORT (SQ) ---
EXAM DESCRIPTION: SHOULDER RIGHT 2 OR MORE VIEWS COMPLETED DATE/TIME: 09/14/2016 12:18 pm REASON FOR STUDY: fall, unwitnessed, ?LOC COMPARISON: None. NUMBER OF VIEWS: Three views. TECHNIQUE: Internal rotation, external rotation, and Y view images acquired of the right shoulder. LIMITATIONS: None. FINDINGS: MINERALIZATION: Osteopenic BONES: No acute fracture. There is widening at the acromioclavicular joint likely from partial resec tion of the acromion. Small well corticated calcifications are present over the soft tissues at the expected location of the subacromial/subdeltoid bursa. These are likely small loose bodies. JOINTS: No glenohumeral dislocation. Probable surgical widening of the AC joint. VISUALIZED LUNGS AND RIBS: No pneumothorax. No rib fracture. SOFT TISSUES: Left-sided pacemaker. Old lower cervical fusion hardware OTHER: No other significant finding. IMPRESSION: No acute fracture TECHNICAL DOCUMENTATION: JOB ID: [id number] [employer]- All Rights Reserved
--- NOTE | 2016-09-14 13:07 | ER Document Report ---
ED Fall - General Chief Complaint: Hip Pain Stated Complaint: FALL/HIP PAIN Time Seen by Provider: 09/14/16 11:24 TRAVEL OUTSIDE OF THE [place] IN LAST 30 DAYS: No - HPI Occurred: Just prior to arrival Where: Home Context: Fell from sitting - out of bed Associated symptoms: None, Other - lost his balane getting out of bed Location of injury/pain: Upper extremity - right shoulder, Lower extremity - right hip and knee - Related data Allergies/Adverse Reactions: Hymenoptera Allergenic Extract [From Yellow Jacket Venom Protein] Allergy ( Severe, Verified 08/02/16 22:12) Anaphylaxis morphine [Morphine] Allergy (Severe, Verified 08/02/16 22:12) Hallucinations Penicillins Allergy (Severe, Verified 08/02/16 22:12) Heart Attack Yellow Jacket Krish Protein [From Yellow Jacket Venom Protein] Allergy (Severe, Verified 08/02/16 22:12) Anaphylaxis hydrocodone Allergy (Verified 08/02/16 22:12) oxycodone Allergy (Verified 08/02/16 22:12) hymenoptera stings Allergy (Uncoded 08/02/16 22:12) Past Medical History - Social History Smoking Status: Former Smoker Chew tobacco use (# tins/day): No Frequency of alcohol use: None Drug Abuse: None Family History: Hypertension - Past Medical History Cardiac Medical History: Reports: Hx Atrial Fibrillation, Hx Congestive Heart Failure, Hx Coronary Artery Disease, Hx Hypertension Pulmonary Medical History: Reports: Hx COPD Endocrine Medical History: Reports: Hx Diabetes Mellitus Type 2 Renal/ Medical History: Denies: Hx End Stage Renal Disease, Hx Renal Insufficiency Psychiatric Medical History: Denies: Hx Depression Past Surgical History: Reports: Hx Cardiac Surgery - pacemaker, Hx Gastric Bypass Surgery, Hx Orthopedic Surgery - multiple bilat knees Left total hip replacement, Hx Pacemaker - Immunizations Hx Diphtheria, Pertussis, Tetanus Vaccination: Yes Review of Systems - Review of Systems Constitutional: No symptoms reported Musculoskeletal: See HPI Skin: No symptoms reported -: Yes All other systems reviewed and negative Physical Exam - Vital signs Vitals: Temp Pulse Resp BP Pulse Ox 97.4 F 116 H 22 H 139/99 H 95 09/14/16 11:23 09/14/16 11:23 09/14/16 11:23 09/14/16 11:23 09/14/16 11:23 - General General appearance: Appears well, Alert In distress: None - HEENT Head: Normocephalic, Atraumatic. No: Abrasions, Pena's sign, Ecchymosis, Open wounds, Racoon's eyes, Tenderness, Other - Cardiovascular Rhythm: Regular Heart sounds: Normal auscultation, S1 appreciated, S2 appreciated Pulses: Normal: Radial, Dorsalis pedis Normal capillary refill: Yes - Extremities General upper extremity: Normal inspection, Nontender, Normal color, Normal ROM , Normal strength, Normal temperature General lower extremity: Normal inspection, Nontender, Edema, Normal color, Normal ROM, Normal strength, Normal temperature - Neurological Neuro grossly intact: Yes Cognition: Normal Orientation: AAOx4 Yessica Coma Scale Eye Opening: Spontaneous [place] Coma Scale Verbal: Oriented [place] Coma Scale Motor: Obeys Commands Yessica Coma Scale Total: 15 Speech: Normal Cranial nerves: Normal Cerebellar coordination: Normal Motor strength normal: LUE, RUE, LLE, RLE Additional motor exam normals: Equal search engine marketing specialist. No: Weakness Sensory: Normal - Skin Skin Temperature: Warm Skin Moisture: Dry Skin Color: Normal Skin Turgor: Elastic Skin irregularity: negative: Laceration Course - Re-evaluation Re-evalutation: 09/14/16 18:55 Patient is a 76-year-old male who is hemodynamic stable, no distress and afebrile. The fracture or hemorrhage noted on CT of the head. No evidence of fracture or injury noted on rest of the his imaging. Patient has been given his home doses of pain medication with pain control. After performing a Medical Screening Examination, I estimate there is LOW risk for INTRACRANIAL HEMORRHAGE, UNSTABLE SPINE FRACTURE, CENTRAL CORD SYNDROME, CAUDA EQUINA, THORACIC AORTIC DISSECTION, PNEUMOTHORAX, PERFORATED BOWEL, RUPTURED ABDOMINAL AORTIC ANEURYSM, ACUTE TENDON RUPTURE, COMPARTMENT SYNDROME, or OPEN FRACTURE, thus I consider the discharge disposition reasonable. Also, there is no evidence or peritonitis, sepsis, or toxicity. I have reevaluated this patient multiple times and no significant life threatening changes are noted. The patient and I have discussed the diagnosis and risks, and we agree with discharging home to follow-up with their primary doctor with the understanding that symptoms and presentations can change. We also discussed returning to the Emergency Department immediately if new or worsening symptoms occur. We have discussed the symptoms which are most concerning (e.g., bloody stool, fever, changing or worsening pain, vomiting) that necessitate immediate return. - Vital Signs Vital signs: Temp Pulse Resp BP Pulse Ox 98.2 F 60 18 125/66 100 09/14/16 14:41 09/14/16 14:41 09/14/16 14:41 09/14/16 14:41 09/14/16 14:41 - Diagnostic Test Radiology reviewed: Image reviewed, Reports reviewed Discharge - Discharge Clinical Impression: Fall Qualifiers: Encounter type: initial encounter Qualified Code(s): W19.XXXA - Unspecified fall, initial encounter Condition: Good Disposition: HOME-ASSISTED LIVING Instructions: Contusion ([facility]) Additional Instructions: Take your home chronic pain medications as prescribed otherwise follow-up with primary care as needed.
[2016-09-14 14:42] VITALS: BP 125/66
== END 2016-09-14 14:42 | disposition home health service (06) ==
LOC: ER 11:17
DX: M25.551 Pain in right hip (principal); M25.561 Pain in right knee; W06.XXXA Fall from bed, initial encounter; Y92.003 Bedroom of unspecified non-institutional (private) residence as the place of occurrence of the external cause; I48.91 Unspecified atrial fibrillation; I50.9 Heart failure, unspecified; I25.10 Atherosclerotic heart disease of native coronary artery without angina pectoris; I11.0 Hypertensive heart disease with heart failure; J44.9 Chronic obstructive pulmonary disease, unspecified; E11.9 Type 2 diabetes mellitus without complications; Z88.6 Allergy status to analgesic agent; Z88.0 Allergy status to penicillin; Z95.0 Presence of cardiac pacemaker; Z96.642 Presence of left artificial hip joint
CPT/HCPCS: 99284; 73564; 72170; 73030; 70450; 72125; A9270 ×2

== ENCOUNTER 2016-10-16 03:22 | Emergency (ER) | payer MEDICARE, OTHER ==
--- NOTE | 2016-10-16 03:36 | ER Document Report ---
ED General - General Stated Complaint: FALL Time Seen by Provider: 10/16/16 03:32 Notes: Patient is a 76-year-old male who presents with complaints of a fall. [facility]. Patient complains of pain mainly in his lower back. He the [facility] was worried about his left shoulder actually felt that this is pink the shoulder and scapular look deformed. Patient denies any head or neck pain. He does have some bruising over left forehead but according to the nurse the [facility] told paramedics that the bruising was old. Patient denies any pain in his neck to me. Denies any chest or abdominal pain. He has no other complaints at this time. TRAVEL OUTSIDE OF THE [place] IN LAST 30 DAYS: No - Related Data Allergies/Adverse Reactions: Hymenoptera Allergenic Extract [From Yellow Jacket Venom Protein] Allergy ( Severe, Verified 08/02/16 22:12) Anaphylaxis morphine [Morphine] Allergy (Severe, Verified 08/02/16 22:12) Hallucinations Penicillins Allergy (Severe, Verified 08/02/16 22:12) Heart Attack Yellow Jacket Krish Protein [From Yellow Jacket Venom Protein] Allergy (Severe, Verified 08/02/16 22:12) Anaphylaxis hydrocodone Allergy (Verified 08/02/16 22:12) oxycodone Allergy (Verified 08/02/16 22:12) hymenoptera stings Allergy (Uncoded 08/02/16 22:12) Past Medical History - Social History Smoking Status: Unknown if Ever Smoked Frequency of alcohol use: None Drug Abuse: None Family History: Hypertension - Past Medical History Cardiac Medical History: Reports: Hx Atrial Fibrillation, Hx Congestive Heart Failure, Hx Coronary Artery Disease, Hx Hypertension Pulmonary Medical History: Reports: Hx COPD Endocrine Medical History: Reports: Hx Diabetes Mellitus Type 2 Renal/ Medical History: Denies: Hx End Stage Renal Disease, Hx Renal Insufficiency Psychiatric Medical History: Denies: Hx Depression Past Surgical History: Reports: Hx Cardiac Surgery - pacemaker, Hx Gastric Bypass Surgery, Hx Orthopedic Surgery - multiple bilat knees Left total hip replacement, Hx Pacemaker - Immunizations Hx Diphtheria, Pertussis, Tetanus Vaccination: Yes Review of Systems - Review of Systems Notes: My Normal Review Basic REVIEW OF SYSTEMS: CONSTITUTIONAL : Denies fever, chills, or sweats. CARDIOVASCULAR: Denies chest pain. RESPIRATORY: Denies cough, cold, or chest congestion. Denies shortness of breath, difficulty breathing, or wheezing. GASTROINTESTINAL: Denies abdominal pain. Denies nausea, vomiting, or diarrhea. Denies constipation. Last BM: MUSCULOSKELETAL: Complains of pain in his lower back. SKIN: Denies rash or skin lesions. NEUROLOGICAL: Denies altered mental status or loss of consciousness. Denies headache. Denies weakness or paralysis or loss of use of either side. Denies problems with gait or speech. Denies sensory or motor loss. ALL OTHER SYSTEMS REVIEWED AND NEGATIVE. Physical Exam - Vital signs Vitals: Temp Pulse Resp BP Pulse Ox 97.8 F 60 14 119/48 L 98 10/16/16 04:45 10/16/16 04:45 10/16/16 04:45 10/16/16 04:45 10/16/16 04:45 - Notes Notes: General Appearance: Well nourished, alert, cooperative, no acute distress, mild obvious discomfort. Vitals: reviewed, See vital signs table. Head: Bruising and swelling over left forehead. Eyes: PERRL, EOMI, Conjuctiva clear Mouth: No decreasd moisture Neck: Supple, no cervical spine tenderness to palpation. Lungs: No wheezing, No rales, No rhonci, No accessory muscle use, good air exchange bilaterally. Heart: Normal rate, Regular rythm, No murmur, no rub Abdomen: Normal BS, soft, No rigidity, No abdominal tenderness, No guarding, no rebound, no abdominal masses, no organomegaly Back: No thoracic tenderness to palpation. No step-offs or deformities. Patient has some pain to palpation over the lumbosacral junction. No obvious deformity. Extremities: strength 5/5 in all extremities, good pulses in all extremities, no pain with range of motion of the hips. No pain with range of motion of the knees or feet. Patient does have some edema over the bilateral lower extremities which appears chronic. No pain with range of motion or palpation of the right upper extremity. Some pain with range of motion of left shoulder. Left elbow wrist and hand are normal-appearing without pain or swelling on exam., Skin: warm, dry, appropriate color, no rash Neuro: speech clear, oriented x 2, normal affect, responds appropriately to questions. Cranial nerves II through XII are intact. Course - Re-evaluation Re-evalutation: 10/16/16 07:08 Patient is feeling improved and does not appear to be any pain anymore. His CT scans and x-rays are negative. At this time I feel he is safe to be discharged home. Patient to return to ER for severe headache, vomiting, or complaints of worsening pain. Patient's only real complaint to me was of low back pain. I did CT scan his back. When I look through his previous records it appears that he is coming in the past for chronic low back pain. Suspect his back pain is actually chronic. He has no signs of central cord impingement. He is able to move his legs. Good distal sensation. Patient will be [facility] to the [facility]. Dictation of this chart was performed using voice recognition software; therefore, there may be some unintended grammatical errors. - Vital Signs Vital signs: Temp Pulse Resp BP Pulse Ox 97.8 F 60 14 119/48 L 98 10/16/16 04:45 10/16/16 04:45 10/16/16 04:45 10/16/16 04:45 10/16/16 04:45 Discharge - Discharge Clinical Impression: Fall Qualifiers: Encounter type: initial encounter Qualified Code(s): W19.XXXA - Unspecified fall, initial encounter Low back pain Qualifiers: Chronicity: chronic Back pain laterality: midline Sciatica presence: without sciatica Qualified Code(s): M54.5 - Low back pain; G89.29 - Other chronic pain Condition: Good Disposition: HOME, SELF-CARE Additional Instructions: Please return to the ER if you have worsening pain, vomiting, severe headache, or feel unwell. Referrals: CATHLEEN COOL REINSURANCE CLERK [Primary Care Provider] - Follow up as needed
--- NOTE | 2016-10-16 04:28 | RADIOLOGY REPORT (SQ) ---
EXAM DESCRIPTION: CT HEAD WITHOUT COMPLETED DATE/TIME: 10/16/2016 4:07 am REASON FOR STUDY: trauma COMPARISON: CT head 09/14/2016, 03/01/2015. TECHNIQUE: Axial images acquired through the brain without intravenous contrast. Images reviewed wi th bone, brain and subdural windows. Images stored on PACS. All CT scanners at this facility use dose modulation, iterative reconstruction, and/or weight based d osing when appropriate to reduce radiation dose to as low as reasonably achievable (ALARA). [facility]: Dose Right [facility]: CareDose [facility]: Dose Right [facility]: Teradose 4D [facility]: [employer] RADIATION DOSE: Up-to-date CT equipment and radiation dose reduction techniques were employed. CTDIv ol: 64.6 mGy. DLP: 1267 mGy-cm.mGy. LIMITATIONS: None. FINDINGS: VENTRICLES: Prominent. CEREBRUM: No mass effect. No hemorrhage. No midline shift. Areas of low density in the white matte r most likely due to chronic micro-vascular ischemic change. No evidence for acute territorial infar ction. CEREBELLUM: No hemorrhage. No alteration of density. No evidence for acute infarction. EXTRAAXIAL SPACES: Age-related involutional change. No fluid collections. ORBITS AND GLOBE: Symmetrical contour of the globes. CALVARIUM: No depressed fracture. PARANASAL SINUSES: No air-fluid level. SOFT TISSUES: Mild soft tissue swelling at the left frontal region. IMPRESSION: No acute intracranial hemorrhage or depressed calvarial fracture. Mild soft tissue swel ling at the left frontal region. Chronic changes of atrophy and microvascular ischemia. TECHNICAL DOCUMENTATION: JOB ID: [id number] [facility] Quality ID # [id number]: Final reports with documentation of one or more dose reduction techniques (e.g., Au tomated exposure control, adjustment of the mA and/or kV according to patient size, use of iterative reconstruction technique) 2010 [employer]- All Rights Reserved
--- NOTE | 2016-10-16 04:41 | RADIOLOGY REPORT (SQ) ---
EXAM DESCRIPTION: CT LUMBAR SPINE WITHOUT COMPLETED DATE/TIME: 10/16/2016 4:16 am REASON FOR STUDY: trauma . Fall. COMPARISON: Renal ultrasound 02/04/2015. TECHNIQUE: Axial images acquired through the lumbar spine without intravenous contrast. Images revie wed with lung, soft tissue and bone windows. Reconstructed coronal and sagittal MPR images reviewed. Images stored on PACS. All CT scanners at this facility use dose modulation, iterative reconstruction, and/or weight based d osing when appropriate to reduce radiation dose to as low as reasonably achievable (ALARA). [facility]: Dose Right [facility]: CareDose [facility]: Dose Right [facility]: Teradose 4D [facility]: [employer] RADIATION DOSE: mGy. LIMITATIONS: None. FINDINGS: SOFT TISSUES: No soft tissue swelling. There is a 3.3 cm cyst at the right kidney. ALIGNMENT: There is mild retrolisthesis of L2 on L3. There is mild anterolisthesis of L4 on L5. VERTEBRAL BODIES: No acute fracture or focal subluxation. Multiple Schmorl's nodes are noted. DISCS: Extensive multilevel degenerative disc disease and osteophytosis. PEDICLES, TRANSVERSE PROCESSES: No acute fracture or dislocation. FACETS, POSTERIOR ELEMENTS: No acute fracture or dislocation. Multilevel facet arthropathy. Severe spinal stenosis at L3-L4 and L4-L5. HARDWARE: None in the spine. VISUALIZED RIBS: No fractures. OTHER: Marked distention of the visualized urinary bladder. IMPRESSION: No CT evidence for acute fracture in the lumbar spine. Extensive multilevel degenerativ e changes. Severe spinal stenosis at L3-L4 and L4-L5. Evaluation with MRI as clinically warranted. Marked distension of the visualized urinary bladder. TECHNICAL DOCUMENTATION: JOB ID: [id number] [email or web address] Quality ID # [id number]: Final reports with documentation of one or more dose reduction techniques (e.g., Au tomated exposure control, adjustment of the mA and/or kV according to patient size, use of iterative reconstruction technique) 2010 [employer]- All Rights Reserved
--- NOTE | 2016-10-16 04:53 | RADIOLOGY REPORT (SQ) ---
EXAM DESCRIPTION: PELVIS AP COMPLETED DATE/TIME: 10/16/2016 4:37 am REASON FOR STUDY: trauma COMPARISON: Pelvis x-ray 09/14/2016. NUMBER OF VIEWS: One view TECHNIQUE: AP Pelvis LIMITATIONS: Osteopenia, limits bony detail. FINDINGS: There is osteopenia. Orthopedic hardware is transfixing the proximal left femur. No evid ence for acute fracture or dislocation. Degenerative changes in the visualized lower lumbar spine. Vascular calcifications are noted. IMPRESSION: Osteopenia. No radiographic evidence for acute fracture. TECHNICAL DOCUMENTATION: JOB ID: [id number] [place]-[email or web address] 2010 [employer]- All Rights Reserved
--- NOTE | 2016-10-16 04:58 | RADIOLOGY REPORT (SQ) ---
EXAM DESCRIPTION: SHOULDER LEFT 2 OR MORE VIEWS COMPLETED DATE/TIME: 10/16/2016 4:37 am REASON FOR STUDY: trauma COMPARISON: Chest x-ray 04/10/2016. NUMBER OF VIEWS: Three views. TECHNIQUE: Internal rotation, external rotation, and Y view images acquired of the left shoulder. LIMITATIONS: None. FINDINGS: MINERALIZATION: Osteopenia. BONES: No acute fracture. JOINTS: No dislocation. Degenerative changes are noted at the glenohumeral joint and acromioclavicul ar joint. VISUALIZED LUNGS AND RIBS: No pneumothorax. No displaced rib fracture. SOFT TISSUES: No radiopaque foreign body. OTHER: There is a left-sided pacemaker. Sternotomy wires are present. Partially visualized orthoped ic hardware at the lower cervical spine. IMPRESSION: No radiographic evidence for acute fracture or dislocation. Degenerative changes. TECHNICAL DOCUMENTATION: JOB ID: [id number] 2010 [employer]- All Rights Reserved
[2016-10-16 07:29] VITALS: BP 113/48
== END 2016-10-16 08:12 | disposition home or self-care (01) ==
LOC: ER 03:22
DX: M54.5 Low back pain (principal); G89.29 Other chronic pain; W19.XXXA Unspecified fall, initial encounter; Y92.129 Unspecified place in nursing home as the place of occurrence of the external cause; I48.91 Unspecified atrial fibrillation; I50.9 Heart failure, unspecified; I25.10 Atherosclerotic heart disease of native coronary artery without angina pectoris; I11.0 Hypertensive heart disease with heart failure; J44.9 Chronic obstructive pulmonary disease, unspecified; E11.9 Type 2 diabetes mellitus without complications; Z96.642 Presence of left artificial hip joint; Z88.6 Allergy status to analgesic agent; Z88.0 Allergy status to penicillin; Z95.0 Presence of cardiac pacemaker; Z98.84 Bariatric surgery status
CPT/HCPCS: 70450; 72131; 72170; 99284

== ENCOUNTER 2016-11-13 00:55 | Inpatient (IN) | payer MEDICARE, OTHER ==
[2016-11-13] MEDS ORDERED: NORMAL SALINE 1000 ML 1,000 ML IV ONE (01:21)
--- NOTE | 2016-11-13 01:23 | ER Document Report ---
ED General - General Chief Complaint: Hip Pain Stated Complaint: PELVIC PAIN Time Seen by Provider: 11/13/16 01:01 Cannot obtain history due to: Mentally challenged, Uncooperative Notes: Patient is a 76-year-old male with a past medical history of COPD, chronic kidney disease, chronic alcohol and tobacco abuse, who presents after apparently having a mechanical fall landing on his left hip. He does reside in a nursing facility. This was a witnessed fall. Patient is uncertain whether or not he had his hernia head or neck. He does note a dull, constant, throbbing pain to the left hip. He states he is unable to move secondary to pain. Nothing improves the pain. Denies any prior history of a injury to this location. Patient is otherwise a very poor historian, does not provide any additional meaningful history. TRAVEL OUTSIDE OF THE [place] IN LAST 30 DAYS: No - Related Data Allergies/Adverse Reactions: Hymenoptera Allergenic Extract [From Yellow Jacket Venom Protein] Allergy ( Severe, Verified 11/13/16 01:15) Anaphylaxis morphine [Morphine] Allergy (Severe, Verified 11/13/16 01:15) Hallucinations Penicillins Allergy (Severe, Verified 11/13/16 01:15) Heart Attack Yellow Jacket Krish Protein [From Yellow [place]et Venom Protein] Allergy (Severe, Verified 11/13/16 01:15) Anaphylaxis hydrocodone Allergy (Verified 11/13/16 01:15) oxycodone Allergy (Verified 11/13/16 01:15) hymenoptera stings Allergy (Uncoded 11/13/16 01:15) Past Medical History - General Information source: Patient - Social History Smoking Status: Current Every Day Smoker Frequency of alcohol use: Occasional Drug Abuse: None Lives with: Shelter Family History: Hypertension - Past Medical History Cardiac Medical History: Reports: Hx Atrial Fibrillation, Hx Congestive Heart Failure, Hx Coronary Artery Disease, Hx Hypertension Pulmonary Medical History: Reports: Hx COPD Endocrine Medical History: Reports: Hx Diabetes Mellitus Type 2 Renal/ Medical History: Denies: Hx End Stage Renal Disease, Hx Peritoneal Dialysis, Hx Renal Insufficiency Psychiatric Medical History: Denies: Hx Depression Past Surgical History: Reports: Hx Cardiac Surgery - pacemaker, Hx Gastric Bypass Surgery, Hx Orthopedic Surgery - multiple bilat knees Left total hip replacement, Hx Pacemaker - Immunizations Hx Diphtheria, Pertussis, Tetanus Vaccination: Yes Review of Systems - Review of Systems Notes: Constitutional: Negative for fever. HENT: Negative for sore throat. Eyes: Negative for visual changes. Cardiovascular: Negative for chest pain. Respiratory: Negative for shortness of breath. Positive for cough Gastrointestinal: Negative for abdominal pain, vomiting or diarrhea. Genitourinary: Negative for dysuria. Musculoskeletal: Positive for left hip pain Skin: Negative for rash. Neurological: Negative for headaches, weakness or numbness. 10 point ROS negative except as marked above and in HPI. Physical Exam - Vital signs Vitals: Temp Pulse Resp BP Pulse Ox 97.6 F 62 20 107/71 94 11/13/16 01:08 11/13/16 01:08 11/13/16 01:08 11/13/16 01:08 11/13/16 01:08 Interpretation: Normal Notes: PHYSICAL EXAMINATION: GENERAL: Cachectic, chronically ill in appearance but in no acute distress HEAD: Atraumatic, normocephalic. EYES: Pupils equal round and reactive to light, extraocular movements intact, sclera anicteric, conjunctiva are normal. ENT: nares patent, no oral pharyngeal trauma. No hemotympanum, no Pena's sign , no raccoon eyes. Severely dry oropharynx NECK: No midline cervical spine tenderness. Patient able to move their head to 45 bilaterally without any discomfort. LUNGS: Breath sounds clear to auscultation bilaterally and equal. Diffusely rhonchorous and wheezing throughout HEART: Regular rate and rhythm without murmurs. CHEST WALL: No ecchymosis over the chest wall. ABDOMEN: Soft, nontender, normoactive bowel sounds. No guarding, no rebound. EXTREMITIES: Normal range of motion, no pitting or edema. No long bone deformities. BACK: No midline spinal tenderness, step-offs, or deformities. NEUROLOGICAL: Moves all extremities spontaneously but unwilling to perform strength testing PSYCH: Somewhat irritable, states name but does not provide additional meaningful information SKIN: Warm, Dry, poor turgor Course - Re-evaluation Re-evalutation: 11/13/16 01:22 Presentation of a well appearing elderly patient in no acute distress, vitals within normal limits after a mechanical fall. Patient denies a syncopal episode as the cause for today's fall. No focal neurologic deficits on exam, no evidence of basilar skull fracture on exam without evidence of hemotympanum, raccoon eyes, or periauricular hematoma. No papilledema. Patient is not on anticoagulation. GCS is 15. No loss of consciousness. No episodes of vomiting. However, based on patient's age a CT of the head has been obtained which is negative for any acute intracranial bleed.. Likewise, patient was unable to be clinically cleared due to age by [place] cervical spine criteria. A CT of the cervical spine was also obtained and likewise is negative for any acute fracture. No indication for further imaging of the cervical spine. Chest and abdominal exam are benign without any focal tenderness, shortness of breath , or bruising over the chest or abdominal wall. Patient has no flank tenderness. Patient is however complaining of left hip tenderness so an x-ray of the area will also be obtained. Patient also appears significantly dehydrated on examination, overall chronically ill in appearance. He has a history of acute kidney injury in the past. Given the degree of obvious dehydration on clinical examination will proceed with basic laboratories and IV fluid administration as well. 11/13/16 02:11 Labs show a acute kidney injury consistent with a prerenal azotemia consistent with patient's severe dehydration on examination. Awaiting imaging and will reassess 11/13/16 03:39 Imaging does show a right lower lobe pneumonia but no other acute findings. Levofloxacin and ceftriaxone have been initiated. IV fluids are ongoing. I have discussed with Dr. Lagunas who will admit - Vital Signs Vital signs: Temp Pulse Resp BP Pulse Ox 97.6 F 62 14 131/54 H 94 11/13/16 01:08 11/13/16 01:08 11/13/16 03:34 11/13/16 03:34 11/13/16 03:34 - Laboratory Result Diagrams: 11/13/16 01:27 11/13/16 01:27 Laboratory results interpreted by me: 11/13/16 11/13/16 01:27 01:27 RBC 3.26 L Hgb 11.5 L Hct 33.8 L MCV 104 H MCH 35.3 H RDW 16.8 H Plt Count 147 L Seg Neutrophils % 87.1 H Lymphocytes % 5.7 L Absolute Neutrophils 8.7 H BUN 86 H Creatinine 3.12 H Est GFR ( Amer) 24 L Est GFR (Non-Af Amer) 19 L Glucose 163 H - Diagnostic Test Radiology reviewed: Image reviewed, Reports reviewed Radiology results interpreted by me: 11/13/16 03:37 CXR: right lower lobe pneumonia Discharge - Discharge Clinical Impression: Acute kidney injury Anemia Qualifiers: Anemia type: iron deficiency Iron deficiency anemia type: unspecified iron deficiency Qualified Code(s): D50.9 - Iron deficiency anemia, unspecified Condition: Fair Disposition: ADMITTED INPATIENT [facility] Admitted: Telemetry Referrals: CATHLEEN COOL SLEEVE PRESSER OPERATOR [Primary Care Provider] - Follow up as needed
[2016-11-13 01:51] LABS: ANION GAP 16 (5-19); BLOOD UREA NITROGEN 86 mg/dL (7-20); CALCIUM 9.5 mg/dL (8.4-10.2); CARBON DIOXIDE 30 mmol/L (22-30); CHLORIDE 99 mmol/L (98-107); CREATININE RESULT 3.12 mg/dL (0.52-1.25); GLUCOSE 163 mg/dL (75-110); SODIUM 144.5 mmol/L (137-145)
[2016-11-13 01:53] LABS: ABSOLUTE LYMPHOCYTES (AUTO) 0.6 10^3/uL (0.5-4.7); ABSOLUTE MONOCYTES (AUTO) 0.7 10^3/uL (0.1-1.4); ABSOLUTE NEUT (AUTO) 8.7 10^3/uL (1.7-8.2); BASOPHILS % (AUTO) 0.2 % (0-2); HEMATOCRIT 33.8 % (37.9-51.0); HEMOGLOBIN 11.5 g/dL (13.5-17.0); HGB HCT DIFFERENCE 0.7; LYMPHOCYTES % (AUTO) 5.7 % (13-45); MEAN CORPUSCULAR HEMOGLOBIN 35.3 pg (27.0-33.4); MEAN CORPUSCULAR VOLUME 104 fl (80-97); RED BLOOD COUNT 3.26 10^6/uL (4.35-5.55); RED CELL DISTRIBUTION WIDTH 16.8 % (11.5-14.0); SEGMENTED NEUTROPHILS % (AUTO) 87.1 % (42-78); WHITE BLOOD COUNT 9.9 10^3/uL (4.0-10.5)
--- NOTE | 2016-11-13 03:11 | RADIOLOGY REPORT (SQ) ---
EXAM: NONCONTRAST BRAIN CT EXAMINATION. CLINICAL INDICATION: Head injury. Trauma. COMPARISON: Brain CT performed October 16, 2016. TECHNIQUE: Using low dose helical CT technique, thin section axial images were performed through the brain without the administration of intravenous or subarachnoid contrast material. FINDINGS: Brain volume is normal. No diffuse brain swelling or brain herniation. No hydrocephalus. No subdural or epidural hematomas. No large subacute brain infarction. No parenchymal brain hemorrhage or evidence of intracranial mass lesion. Cerebral white matter is grossly normal. Caudate heads, lentiform nuclei, thalami and internal capsules are normal. Bones of the skull and skull base are normal. The middle ears and mastoid air cells are clear. Chronic left maxillary sinusitis. The other paranasal sinuses are clear. Severe atherosclerotic calcification in the cavernous internal carotid arteries. IMPRESSION: 1. Normal for age noncontrast brain CT examination.
--- NOTE | 2016-11-13 03:12 | RADIOLOGY REPORT (SQ) ---
EXAM: NONCONTRAST CERVICAL SPINE CT EXAMINATION. CLINICAL INDICATION: Pain post fall. COMPARISON: None. TECHNIQUE: Using low-dose helical technique, thin section axial images were performed through the cervical spine without the administration of intravenous or subarachnoid contrast material. CT sagittal coronal reconstructions were also obtained. FINDINGS: Pole of remote fusion of the C3-C6 vertebral bodies have been fused with intact metallic fusion components. No evidence of loosening or infection. Severe degenerative disease at the cervical thoracic junction and in the preodontoid space. No fractures, spondylolisthesis or facet joint dislocation. No hemorrhage in the spinal canal. Precervical soft tissue thickness is normal. The odontoid process, preodontoid space and C1 vertebral body are intact. The occipital condyles are intact. Partially visualized bony structures of the skull base appear normal. Soft tissue structures of the neck are grossly normal on this noncontrast examination. IMPRESSION: 1. Multilevel degenerative disease in this patient post remote fusion without fracture, loosening or infection.
--- NOTE | 2016-11-13 03:23 | RADIOLOGY REPORT (SQ) ---
EXAM DESCRIPTION: HIP LEFT AP/LATERAL CLINICAL HISTORY: 76 years, Male, fall COMPARISON: None. NUMBER OF VIEWS: 2 TECHNIQUE: Radiographic technique LIMITATIONS: None. FINDINGS: Sequela of remote left femoral intertrochanteric ORIF with intact metallic fixation components in appropriate position. Evidence of exuberant bony healing. No new fractures. No evidence of loosening or infection. No radiographic evidence of hip avascular necrosis. Bones appear osteopenic. No lytic or blastic pelvic lesions. Partially visualized severe degenerative disease in the lower lumbosacral spine. IMPRESSION: Healing left intertrochanteric fracture ORIF. No evidence of acute fracture, loosening or infection. No radiographic evidence of hip avascular necrosis. 2011 [employer]- All Rights Reserved
--- NOTE | 2016-11-13 03:25 | RADIOLOGY REPORT (SQ) ---
EXAM DESCRIPTION: CHEST SINGLE VIEW CLINICAL HISTORY: 76 years, Male, cough COMPARISON: Chest radiograph of April 10, 2016. NUMBER OF VIEWS: 1 TECHNIQUE: Routine radiographic technique. LIMITATIONS: None. FINDINGS: Right basilar consolidation suspicious for pneumonia. Left lung is clear. Intact cardiac pacer components remain in appropriate position. Intact sternal wire sutures in this patient with remote CABG. No pneumothorax. IMPRESSION: Right basilar consolidation suspicious for pneumonia. 2010 [email or web address]- All Rights Reserved
[2016-11-13] MEDS ORDERED: LEVOFLOXACIN 750 MG/D5W RTU 750 MG/150 ML RTUPB IV ONE (03:30)
[2016-11-13] MEDS ORDERED: CEFTRIAXONE 1 GM/D5W RTU 1 GM/50 ML RTUPB IV ONE (03:30)
[2016-11-13 03:50] LABS: ADD ON TESTING BLD IN LAB ACKNOWLEDGE
[2016-11-13 04:03] LABS: ALANINE AMINOTRANSFERASE 26 U/L (21-72); ALBUMIN 3.3 g/dL (3.5-5.0); ALKALINE PHOSPHATASE 73 U/L (38-126); ASPARTATE AMINO TRANSFERASE 37 U/L (17-59); BILIRUBIN,DIRECT 0.9 mg/dL (0.0-0.4); BILIRUBIN,TOTAL 1.3 mg/dL (0.2-1.3); MAGNESIUM 1.7 mg/dL (1.6-2.3); TOTAL PROTEIN 6.3 g/dL (6.3-8.2)
[2016-11-13] MEDS ORDERED: GUAIFENESIN SYRP 200 MG/10 ML UDC PO PRN (04:51)
[2016-11-13] MEDS ORDERED: IPRATROPIUM/ALBUTEROL 0.5-2.5 MG/3 ML AMPUL NEB PRN (04:51)
[2016-11-13] MEDS ORDERED: 1/2 NORMAL SALINE 1,000 ML IV PRN (04:51)
[2016-11-13] MEDS ORDERED: GLUCAGON,HUMAN RECOMB 1 MG INJ IM PRN (04:52)
[2016-11-13] MEDS ORDERED: INSULIN LISPRO 100 UNIT/ML 3 ML VIAL SUBCUT PRN (04:52)
[2016-11-13] MEDS ORDERED: DEXTROSE 40% GEL 15 GM TUBE PO PRN ×2 (04:52)
[2016-11-13] MEDS ORDERED: DEXTROSE 50%-WATER 25 GM/50 ML DISP.SYRIN IV PRN ×2 (04:52)
[2016-11-13] MEDS ORDERED: PROMETHAZINE HCL 25 MG TABLET PO PRN (05:00)
[2016-11-13] MEDS ORDERED: PHARMACY COMMUNICATION ORDER MC SCH (05:00)
[2016-11-13] MEDS ORDERED: ACETAMINOPHEN 325 MG TABLET PO PRN ×2 (05:00→13:12)
[2016-11-13 05:03] LABS: VENOUS BLOOD BASE EXCESS 3.3 mmol/L; VENOUS BLOOD HCO3 30.8 mmol/L (20-32); VENOUS BLOOD PCO2 58.6 mmHg (35-63); VENOUS BLOOD PH 7.34 (7.30-7.42)
--- NOTE | 2016-11-13 05:35 | PDOC H&P ---
History of Present Illness Admission Date/PCP: 11/13/16 03:50 CATHLEEN COOL NP Patient complains of: Left hip pain, status post fall History of Present Illness: SANJUANA KING JR is a 76 year old male resident of [facility], portable DNR in place, with underlying COPD, stage III chronic kidney disease, and reported chronic alcohol and tobacco abuse, uncertain if still ongoing who was witnessed at the nursing facility to have a mechanical fall, landing on his left hip. Patient brought to the emergency room for evaluation of above complaint. Patient has been discussed with emergency room physician who evaluated the patient. Patient is oriented only to year, provides confused answers to basic questions, and is able to provide no history whatsoever in terms of acute or chronic events, review of systems, personal habits, family history, etc. No friends or family are present. Old inpatient records are reviewed. Hospitalized on our service August 02 to the of this year, with discharge diagnoses including acute kidney injury, dehydration, and hypokalemia. History and physical and discharge summary have been reviewed. Dictation via voice recognition software. Laboratory results are listed in [employer] and are reviewed. X-ray summary results are listed below, with full report(s) reviewed. EKG reviewed--significant artifact; will repeat. Social history/personal habits: See history and present illness. No further information available this point in time. Allergies/adverse reactions are listed in [employer] and are reviewed. Home medications initially autopopulated into [employer] may not accurately reflect patient's true medications, dosages, and/or frequencies. ambulatory technologist to reconcile medications. Unfortunately, patient not able to provide any information related to medications/dosages/frequencies. REVIEW OF SYSTEMS: See history and present illness. No further information available this point in time. PHYSICAL EXAMINATION: 58.97 kg. Height is not recorded on the chart. Blood pressure 106/54. Pulse 60 and regular. 98% saturation on 1 L oxygen per nasal cannula. Respirations are 17 and unlabored. Temperature 97.6. Thin somewhat chronically ill appearing elderly male who appears approximately his stated age. Appears somewhat fatigued. Mildly anxious. No agitation. Maintaining airway well. Somewhat sleepy. Skin is warm and dry. No grossly obvious evidence of rash in areas of skin examined. No subcutaneous nodules palpated. Evidence of venous staining lower aspect of each lower extremity, typically seen with chronic venous stasis disease. No ulceration per se. Stage I decubitus ulcer on the lateral aspect of each heel. ENT: Hearing grossly normal to normal conversation. Tongue midline on protrusion pink and slightly tacky. No chaudhry sign. Eyes: No scleral icterus. Pupils equal and reactive to light at 4 mm. Somewhat pale conjunctivae. No raccoon eyes. Neck is supple and nontender to gentle active range of motion and palpation. Midline trachea. No palpable thyroid nodule mass enlargement or tenderness. Lymphatic: No palpable cervical or clavicular nodes. Neck and lymphatic exams limited by patient body habitus. Psychiatric: Cannot be adequately evaluated due to his current mental status. See history and present illness. Lungs: Auscultation reveals slightly decreased, faintly coarse breath sounds, right lower hemithorax. Otherwise, breath sounds are clear and equal bilaterally. No use of accessory respiratory muscles. Cardiovascular: Heart regular rate and rhythm, without gallop murmur or rub. No carotid or abdominal aortic bruits. Mild bilateral symmetric slightly pitting lower calf, ankle and pedal edema. Faintly palpable dorsalis pedis pulses. Abdomen:soft slightly distended nontender with positive bowel sounds. Unable to adequately evaluate abdomen for masses or organomegaly due to distention. Extremities: Feet are warm and dry. No calf tenderness to compression. No grossly obvious visual evidence of calf swelling. Gentle manipulation of lower extremities attempted, but restricted range of motion, likely to long-term bedbound status. Patient confirms he is not able to walk. Neurologic: Patellar reflexes absent. Absent Babinski. Light touch cannot be determined due to his current status. Dorsiflexion left foot 4/5; right foot 3/ 5. Plantar flexion left foot 5/5; right foot 4/5. Past Medical History Past Medical History: Information from current and old records; patient unable to provide any information himself. Cardiac Medical History: Reports: Atrial Fibrillation, Congestive Heart Failure , Coronary Artery Disease, Hypertension Pulmonary Medical History: Reports: Chronic Obstructive Pulmonary Disease (COPD) Endocrine Medical History: Reports: Diabetes Mellitus Type 2 Renal/ Medical History: Reports: Chronic Kidney Disease Psychiatric Medical History: Denies: Depression Hematology: Reports: Anemia Past Surgical History Past Surgical History: Information from current and old records; patient unable to provide any information himself. Past Surgical History: Reports: Gastric Bypass Surgery, Orthopedic Surgery - multiple bilat knees Left total hip replacement, Pacemaker Social History Information Source: Emergency Med Personnel, [facility] Records Lives with: [facility] Smoking Status: Current Every Day Smoker Frequency of Alcohol Use: Occasional Hx Recreational Drug Use: No Drugs: None Hx Prescription Drug Abuse: No - Advance Directive Resuscitation Status: Do Not Resuscitate - Portable document on chart Surrogate healthcare decision maker:: Uncertain at this point in time Family History Family History: Hypertension Parental Family History Reviewed: No - Patient cannot provide any information. Children Family History Reviewed: No - Patient cannot provide any information. Sibling(s) Family History Reviewed.: No - Patient cannot provide any information. Medication/Allergy Home Medications: Acetaminophen [Tylenol 325 mg Tablet] 650 mg PO Q6HP PRN 08/02/16 Allopurinol [Zyloprim 100 mg Tablet] 100 mg PO DAILY 08/02/16 Aspirin [Ecotrin 81 mg EC Tablet] 81 mg PO DAILY 08/02/16 B Complex W-C No.20/Folic Acid [Renal Caps Softgel] 1 cap PO DAILY 08/02/16 Bisacodyl [Dulcolax 10 mg Supp.rect] 10 mg MI DAILYP PRN 08/02/16 Ferrous Sulfate [Feosol 325 mg Tablet] 325 mg PO DAILY 08/02/16 Folic Acid [Folvite 1 mg Tablet] 1 mg PO DAILY 08/02/16 Ipratropium Gower [Atrovent 0.02% Neb 0.5 mg/2.5 ml Ampul] 0.5 mg PO Q6 Levalbuterol HCl [Levalbuterol Concentrate] 1.25 mg NEB Q6HP PRN 08/02/16 Omeprazole 40 mg PO DAILY 08/02/16 Sennosides/Docusate Sodium [Sennalax-S Tablet] 2 tab PO BID 08/02/16 Tamsulosin HCl [Flomax 0.4 mg Cap.sr] 0.4 mg PO QHS 08/02/16 Tramadol HCl [Ultram 50 mg Tablet] 25 mg PO Q6HP PRN 08/02/16 Carvedilol [Coreg 6.25 mg Tablet] 6.25 mg PO Q12 #60 tablet 08/04/16 Furosemide [Lasix] 40 mg PO DAILY #30 tablet 08/04/16 Allergies/Adverse Reactions: Hymenoptera Allergenic Extract [From Yellow Jacket Venom Protein] Allergy ( Severe, Verified 11/13/16 01:15) Anaphylaxis morphine [Morphine] Allergy (Severe, Verified 11/13/16 01:15) Hallucinations Penicillins Allergy (Severe, Verified 11/13/16 04:56) Heart Attack Yellow Jacket Krish Protein [From Yellow [place]et Venom Protein] Allergy (Severe, Verified 11/13/16 01:15) Anaphylaxis hydrocodone Allergy (Verified 11/13/16 01:15) oxycodone Allergy (Verified 11/13/16 01:15) hymenoptera stings Allergy (Uncoded 11/13/16 01:15) Physical Exam Vital Signs: Temp Pulse Resp BP Pulse Ox 97.6 F 62 16 122/36 L 99 11/13/16 01:08 11/13/16 01:08 11/13/16 04:31 11/13/16 04:31 11/13/16 04:31 Intake & Output 11/12/16 11/13/16 11/14/16 00:59 00:59 00:59 Weight 58.967 kg Results Impressions: Hip X-Ray 11/13/16 01:08 IMPRESSION: Healing left intertrochanteric fracture ORIF. No evidence of acute fracture, loosening or infection. No radiographic evidence of hip avascular necrosis. 2010 [employer]- All Rights Reserved Cervical Spine CT 11/13/16 01:20 IMPRESSION: 1. Multilevel degenerative disease in this patient post remote fusion without fracture, loosening or infection. Head CT 11/13/16 01:20 IMPRESSION: 1. Normal for age noncontrast brain CT examination. Chest X-Ray 11/13/16 02:06 IMPRESSION: Right basilar consolidation suspicious for pneumonia. 2010 [employer]- All Rights Reserved Assessment & Plan - Diagnosis (1) Acute worsening of stage 3 chronic kidney disease Is this a current diagnosis for this admission?: Yes Plan: Likely prerenal in origin. Judicious use of IV fluids, due to chronic underlying diastolic heart failure. Follow-up chemistry. (2) Decubitus ulcer of heel, bilateral, stage 1 Is this a current diagnosis for this admission?: Yes Plan: Innovative mattress. Turn every 2 hours. Dietary consult. (3) RLL pneumonia Qualifiers: Pneumonia type: due to unspecified organism Qualified Code(s): J18.1 - Lobar pneumonia, unspecified organism Is this a current diagnosis for this admission?: Yes Plan: Patient will be admitted under pneumonia protocol. Incentive spirometry twice a day. As needed DuoNeb's. Antibiotics will consist of Rocephin and intravenous Zithromax. Stat swallow screen by nursing staff to help ensure patient is not aspirating. We will hold diet until results are noted. Knee high SCDs for DVT prophylaxis, along with subcutaneous heparin. Time spent in evaluation and management of patient: 68 minutes. (4) Elevated troponin Is this a current diagnosis for this admission?: Yes Plan: Review of old labs reveals chronic mild elevation. This level slightly higher. Will repeat. No outward evidence of acute coronary syndrome. (5) A-fib Qualifiers: Atrial fibrillation type: unspecified Qualified Code(s): I48.91 - Unspecified atrial fibrillation Is this a current diagnosis for this admission?: Yes Plan: Resume home medications as appropriate once these have been determined and reviewed. (6) Anemia Qualifiers: Anemia type: unspecified type Qualified Code(s): D64.9 - Anemia, unspecified Is this a current diagnosis for this admission?: Yes Plan: Follow-up CBC with differential. No need for transfusion at present time. (7) COPD (chronic obstructive pulmonary disease) Qualifiers: COPD type: unspecified COPD Qualified Code(s): J44.9 - Chronic obstructive pulmonary disease, unspecified Is this a current diagnosis for this admission?: Yes (8) DNR (do not resuscitate) Is this a current diagnosis for this admission?: Yes Plan: Portable document on chart. We will honor this directive. (9) Diastolic CHF Qualifiers: Congestive heart failure chronicity: chronic Qualified Code(s): I50.32 - Chronic diastolic (congestive) heart failure Is this a current diagnosis for this admission?: Yes Plan: Resume home medications as appropriate once these have been determined and reviewed. (10) Type II diabetes mellitus Qualifiers: Diabetes mellitus complication status: with unspecified complications Diabetes mellitus payroll human resources assistant insulin use: unspecified retirement insulin use status Qualified Code(s): E11.8 - Type 2 diabetes mellitus with unspecified complications Is this a current diagnosis for this admission?: Yes Plan: Diabetic cardiac prerenal diet, if passes swallow screen. Accu-Cheks with appropriate sliding scale coverage. Resume home medications as appropriate once these have been determined and reviewed. - Time Time Spent: 50 to 70 Minutes Anticipated discharge: SNF Within: within 72 hours - Inpatient Certification Based on my medical assessment, after consideration of the patient's comorbidities, presenting symptoms, or acuity I expect that the services needed warrant INPATIENT care.: Yes I certify that my determination is in accordance with my understanding of Medicare's requirements for reasonable and necessary INPATIENT services [42 CFR 412.3e].: Yes Medical Necessity: Significant Comorbidiites Make Outpatient Treatment Too Risky , Need Close Monitoring Due to Risk of Patient Decompensation, Need For IV Fluids, Need For Continuous Telemetry Monitoring, Need for Nebulizer Therapy and Monitoring of Response, Need for IV Antibiotics, Risk of Complication if Not Cared For in Hospital Post Hospital Care: D/C or Transfer Summary
[2016-11-13 07:17] LABS: ANION GAP 13 (5-19); BLOOD UREA NITROGEN 81 mg/dL (7-20); CARBON DIOXIDE 27 mmol/L (22-30); CHLORIDE 101 mmol/L (98-107); CREATININE RESULT 2.91 mg/dL (0.52-1.25); GLUCOSE 162 mg/dL (75-110); POTASSIUM 3.7 mmol/L (3.6-5.0); SODIUM 140.7 mmol/L (137-145)
[2016-11-13] MEDS ORDERED: INFLUENZA ADLT QUAD (36MOS+) 2017-18 VAC 0.5 ML SYR IM PRN (07:59)
[2016-11-13] MEDS: CEFTRIAXONE 1 GM/D5W RTU 1 GM/50 ML RTUPB IV SCH (09:24)
[2016-11-13] MEDS: AZITHROMYCIN 500 MG in DEXTROSE 5%-WATER 250 ML IV SCH (12:20)
[2016-11-13] MEDS ORDERED: [UNRECOGNIZED DRUG - OTHER] TOP PRN (13:12)
[2016-11-13] MEDS ORDERED: NEOMYCIN TOP PRN (13:12)
[2016-11-13] MEDS ORDERED: POLYMYXIN B TOP PRN (13:12)
[2016-11-13] MEDS ORDERED: BACITRACIN TOP PRN (13:12)
[2016-11-13] MEDS ORDERED: BISACODYL 10 MG SUPP.RECT PR PRN (13:12)
[2016-11-13] MEDS ORDERED: LEVALBUTEROL HCL NEB 1.25 MG/3 ML AMPUL NEB PRN (13:12)
[2016-11-13] MEDS ORDERED: IPRATROPIUM BROMIDE 0.02% NEB 0.5 MG/2.5 ML AMPUL NEB PRN (13:12)
[2016-11-13] MEDS ORDERED: NEOMY/BACITRAC ZN/POLY OINT 15 GM TP PRN (16:00)
[2016-11-13] MEDS: SENNOSIDES/DOCUSATE 8.6-50 MG 1 EACH TABLET PO SCH (20:05)
[2016-11-13] MEDS ORDERED: MAGNESIUM HYDROXIDE SUSP 30 ML UDCUP PO PRN (22:00)
[2016-11-13] MEDS: CARVEDILOL 6.25 MG TABLET PO SCH (22:02)
[2016-11-13] MEDS: TAMSULOSIN HCL 0.4 MG CAP.SR.24H PO SCH (22:02)
[2016-11-14 06:34] LABS: ABSOLUTE LYMPHOCYTES (AUTO) 0.7 10^3/uL (0.5-4.7); ABSOLUTE MONOCYTES (AUTO) 0.5 10^3/uL (0.1-1.4); ABSOLUTE NEUT (AUTO) 9.9 10^3/uL (1.7-8.2); BASOPHILS % (AUTO) 0.4 % (0-2); EOSINOPHILS % (AUTO) 0.1 % (0-6); HEMATOCRIT 33.4 % (37.9-51.0); HEMOGLOBIN 11.1 g/dL (13.5-17.0); HGB HCT DIFFERENCE -0.1; MEAN CORPUSCULAR HEMOGLOBIN 34.3 pg (27.0-33.4); MEAN CORPUSCULAR HGB CONC 33.4 g/dL (32.0-36.0); MEAN CORPUSCULAR VOLUME 103 fl (80-97); MONOCYTES % (AUTO) 4.9 % (3-13); RED BLOOD COUNT 3.25 10^6/uL (4.35-5.55); RED CELL DISTRIBUTION WIDTH 16.6 % (11.5-14.0); SEGMENTED NEUTROPHILS % (AUTO) 88.6 % (42-78); WHITE BLOOD COUNT 11.1 10^3/uL (4.0-10.5)
[2016-11-14 06:47] LABS: ANION GAP 16 (5-19); BLOOD UREA NITROGEN 81 mg/dL (7-20); CALCIUM 9.3 mg/dL (8.4-10.2); CARBON DIOXIDE 26 mmol/L (22-30); CHLORIDE 100 mmol/L (98-107); CREATININE RESULT 2.27 mg/dL (0.52-1.25); GLUCOSE 110 mg/dL (75-110); POTASSIUM 3.1 mmol/L (3.6-5.0); SODIUM 142.1 mmol/L (137-145)
[2016-11-14] MEDS ORDERED: FOLIC ACID/VITAMIN B COMP W-C CAPSULE PO SCH (10:00)
[2016-11-14] MEDS ORDERED: POTASSIUM CHLORIDE 10 MEQ TABLET.SA PO SCH (10:00)
[2016-11-14] MEDS: ALLOPURINOL 100 MG TABLET PO SCH (10:05)
[2016-11-14] MEDS: ASPIRIN 81 MG TABLET, ENT COATED PO SCH (10:05)
[2016-11-14] MEDS: FOLIC ACID 1 MG TABLET PO SCH (10:06)
[2016-11-14] MEDS: LANSOPRAZOLE 30 MG TAB.RAP.DR PO SCH (10:06)
[2016-11-14] MEDS: CARVEDILOL 6.25 MG TABLET PO SCH ×2 (10:07→22:32)
[2016-11-14] MEDS: SENNOSIDES/DOCUSATE 8.6-50 MG 1 EACH TABLET PO SCH ×2 (10:07→19:43)
[2016-11-14] MEDS: CEFTRIAXONE 1 GM/D5W RTU 1 GM/50 ML RTUPB IV SCH (10:08)
[2016-11-14] MEDS: OXYCODONE-ACETAMINOPHEN 5-325 MG TABLET PO PRN ×2 (10:21→19:43)
[2016-11-14] MEDS: AZITHROMYCIN 500 MG in DEXTROSE 5%-WATER 250 ML IV SCH (11:10)
[2016-11-14] MEDS ORDERED: POTASSIUM CHLORIDE 20 MEQ/15 ML UDCUP PO ONE (14:00)
[2016-11-14] MEDS: HALOPERIDOL 1 MG TABLET PO PRN ×2 (16:44→22:32)
--- NOTE | 2016-11-14 16:54 | EKG REPORT ---
SEVERITY:- ABNORMAL ECG - AFIB/FLUT AND V-PACED COMPLEXES NONSPECIFIC INTRAVENTRICULAR CONDUCTION DELAY NONSPECIFIC ST DEPRESSION : Confirmed by: Jeni Barry MD 14-Nov-2016 16:54:05
--- NOTE | 2016-11-14 16:54 | EKG REPORT ---
SEVERITY:- ABNORMAL ECG - ATRIAL-SENSED VENTRICULAR-PACED COMPLEXES RBBB AND LAFB : Confirmed by: Jeni Barry MD 14-Nov-2016 16:53:58
--- NOTE | 2016-11-14 17:43 | PDOC PROGRESS REPORT ---
Subjective Progress Note for:: 11/14/16 Subjective:: Patient was previously on hospice I discover. Patient reports he is feeling better but is thirsty. Patient denies chest pain, nausea, vomiting, abdominal pain. Physical Exam Vital Signs: Temp Pulse Resp BP Pulse Ox 97.7 F 60 16 137/61 H 100 11/14/16 16:00 11/14/16 16:00 11/14/16 16:00 11/14/16 16:00 11/14/16 16:00 Intake & Output 11/13/16 11/14/16 11/15/16 06:59 06:59 06:59 Intake Total 1523 Balance 1523 Weight 58.9 kg Exam: General: Awake alert and oriented x1 (name not birthday), no acute respiratory distress HEENT: AT/NC, PERRL, EOMI, oropharynx is slightly dry, pink, no scleral icterus , no conjunctival injection Neck: No JVD, trachea midline Chest: scattered rhonchi CV: RRR Abdomen: Soft, mildly tender to palpation diffusely, mildly distended, hypoactive bowel sounds; no rebound, rigidity, or guarding Extremities: No cyanosis, clubbing; 1+edema Neuro: Cranial nerves II through XII are grossly intact without focal deficits; awake alert and oriented x1 Psych: normal mood and affect Results Laboratory Results: 11/14/16 06:05 11/14/16 06:05 11/14/16 11/14/16 06:05 06:05 WBC 11.1 H RBC 3.25 L Hgb 11.1 L Hct 33.4 L MCV 103 H MCH 34.3 H MCHC 33.4 RDW 16.6 H Plt Count 109 L Seg Neutrophils % 88.6 H Lymphocytes % 6.0 L Monocytes % 4.9 Eosinophils % 0.1 Basophils % 0.4 Absolute Neutrophils 9.9 H Absolute Lymphocytes 0.7 Absolute Monocytes 0.5 Absolute Eosinophils 0.0 Absolute Basophils 0.0 Sodium 142.1 Potassium 3.1 L Chloride 100 Carbon Dioxide 26 Anion Gap 16 BUN 81 H Creatinine 2.27 H Est GFR ( Amer) 34 L Est GFR (Non-Af Amer) 28 L Glucose 110 Calcium 9.3 11/13/16 06:50 Troponin I 0.080 Impressions: Hip X-Ray 11/13/16 01:08 IMPRESSION: Healing left intertrochanteric fracture ORIF. No evidence of acute fracture, loosening or infection. No radiographic evidence of hip avascular necrosis. 2010 [employer]- All Rights Reserved Cervical Spine CT 11/13/16 01:20 IMPRESSION: 1. Multilevel degenerative disease in this patient post remote fusion without fracture, loosening or infection. Head CT 11/13/16 01:20 IMPRESSION: 1. Normal for age noncontrast brain CT examination. Chest X-Ray 11/13/16 02:06 IMPRESSION: Right basilar consolidation suspicious for pneumonia. 2010 [employer]- All Rights Reserved Assessment & Plan - Diagnosis (1) Acute worsening of stage 3 chronic kidney disease Is this a current diagnosis for this admission?: Yes Plan: Continue gentle hydration (2) Decubitus ulcer of heel, bilateral, stage 1 Is this a current diagnosis for this admission?: Yes (3) RLL pneumonia Qualifiers: Pneumonia type: due to unspecified organism Qualified Code(s): J18.1 - Lobar pneumonia, unspecified organism Is this a current diagnosis for this admission?: Yes Plan: Concern for aspiration will consult speech aspiration precautions Continue Rocephin and azithromycin (4) Acute respiratory failure with hypoxia and hypercapnia Is this a current diagnosis for this admission?: Yes (5) CAD (coronary artery disease) Qualifiers: Coronary Disease-Associated Artery/Lesion type: [place] artery [place] vs. transplanted heart: [place] heart Associated angina: without angina Qualified Code(s): I25.10 - Atherosclerotic heart disease of [place] coronary artery without angina pectoris Is this a current diagnosis for this admission?: Yes (6) CKD (chronic kidney disease) stage 3, GFR 30-59 ml/min Is this a current diagnosis for this admission?: Yes (7) Dehydration Is this a current diagnosis for this admission?: Yes (8) DNR (do not resuscitate) Is this a current diagnosis for this admission?: Yes - Time Time Spent with patient: 15-24 minutes Medications reviewed and adjusted accordingly: Yes Anticipated discharge: Other
[2016-11-14] MEDS: DIAZEPAM 5 MG TABLET PO PRN (19:43)
[2016-11-14] MEDS: TAMSULOSIN HCL 0.4 MG CAP.SR.24H PO SCH (22:32)
[2016-11-15] MEDS: DIAZEPAM 5 MG TABLET PO PRN (02:30)
[2016-11-15] MEDS: HALOPERIDOL 1 MG TABLET PO PRN (02:30)
[2016-11-15] MEDS: OXYCODONE-ACETAMINOPHEN 5-325 MG TABLET PO PRN (02:30)
[2016-11-15] MEDS: SENNOSIDES/DOCUSATE 8.6-50 MG 1 EACH TABLET PO SCH ×2 (09:06→22:27)
[2016-11-15 09:18] LABS: ABSOLUTE LYMPHOCYTES (AUTO) 0.9 10^3/uL (0.5-4.7); ABSOLUTE MONOCYTES (AUTO) 0.6 10^3/uL (0.1-1.4); BASOPHILS % (AUTO) 0.4 % (0-2); EOSINOPHILS % (AUTO) 0.4 % (0-6); HEMATOCRIT 33.8 % (37.9-51.0); HEMOGLOBIN 11.5 g/dL (13.5-17.0); HGB HCT DIFFERENCE 0.7; LYMPHOCYTES % (AUTO) 8.6 % (13-45); MEAN CORPUSCULAR HEMOGLOBIN 34.7 pg (27.0-33.4); MEAN CORPUSCULAR HGB CONC 33.9 g/dL (32.0-36.0); MEAN CORPUSCULAR VOLUME 102 fl (80-97); RED BLOOD COUNT 3.31 10^6/uL (4.35-5.55); RED CELL DISTRIBUTION WIDTH 16.6 % (11.5-14.0); SEGMENTED NEUTROPHILS % (AUTO) 84.6 % (42-78); WHITE BLOOD COUNT 10.6 10^3/uL (4.0-10.5)
[2016-11-15] MEDS: FOLIC ACID 1 MG TABLET PO SCH (09:29)
[2016-11-15] MEDS: ASPIRIN 81 MG TABLET, ENT COATED PO SCH (09:30)
[2016-11-15] MEDS: ALLOPURINOL 100 MG TABLET PO SCH (09:31)
[2016-11-15] MEDS: LANSOPRAZOLE 30 MG TAB.RAP.DR PO SCH (09:31)
[2016-11-15] MEDS: CEFTRIAXONE 1 GM/D5W RTU 1 GM/50 ML RTUPB IV SCH (09:31)
[2016-11-15 09:35] LABS: ANION GAP 13 (5-19); BLOOD UREA NITROGEN 72 mg/dL (7-20); CALCIUM 9.5 mg/dL (8.4-10.2); CARBON DIOXIDE 29 mmol/L (22-30); CHLORIDE 100 mmol/L (98-107); CREATININE RESULT 1.66 mg/dL (0.52-1.25); GLUCOSE 131 mg/dL (75-110); POTASSIUM 3.1 mmol/L (3.6-5.0)
[2016-11-15] MEDS: CARVEDILOL 6.25 MG TABLET PO SCH ×2 (09:44→22:26)
[2016-11-15] MEDS: AZITHROMYCIN 500 MG in DEXTROSE 5%-WATER 250 ML IV SCH (11:03)
[2016-11-15] MEDS: HYDROMORPHONE HCL INJ/PF 2 MG/ML AMPULE IV PRN ×2 (11:04→19:30)
[2016-11-15] MEDS ORDERED: HALOPERIDOL 0.5 MG TABLET PO PRN (12:35)
[2016-11-15] MEDS ORDERED: IPRATROPIUM BROMIDE 0.02% NEB 0.5 MG/2.5 ML AMPUL NEB PRN (13:11)
[2016-11-15] MEDS ORDERED: LEVALBUTEROL HCL NEB 1.25 MG/3 ML AMPUL NEB PRN (13:11)
[2016-11-15] MEDS ORDERED: FUROSEMIDE INJ/PF 20 MG/2 ML SDV IV ONE (18:01)
--- NOTE | 2016-11-15 18:06 | PDOC PROGRESS REPORT ---
Subjective Progress Note for:: 11/15/16 Subjective:: Patient is resting comfortably when I see him. He is difficult to arouse but makes no complaint. Patient denies chest pain, nausea, vomiting, abdominal pain. Physical Exam Vital Signs: Temp Pulse Resp BP Pulse Ox 97.7 F 60 22 H 128/53 H 91 L 11/15/16 16:00 11/15/16 16:00 11/15/16 16:00 11/15/16 16:00 11/15/16 16:00 Intake & Output 11/14/16 11/15/16 11/16/16 06:59 06:59 06:59 Intake Total 1523 492 30 Balance 1523 492 30 Weight 65.6 kg Exam: General: Resting comfortably, no acute respiratory distress HEENT: AT/NC, PERRL, EOMI, oropharynx is moist, pink, no scleral icterus, no conjunctival injection Neck: No JVD, trachea midline Chest: Occasional rales, scattered rhonchi CV: RRR Abdomen: Soft, NTTP, mildly distended, active bowel sounds; no rebound, rigidity , or guarding Extremities: No cyanosis, clubbing; 2+edema Results Laboratory Results: 11/15/16 09:00 11/15/16 09:00 11/15/16 11/15/16 09:00 09:00 WBC 10.6 H RBC 3.31 L Hgb 11.5 L Hct 33.8 L MCV 102 H MCH 34.7 H MCHC 33.9 RDW 16.6 H Plt Count 113 L Seg Neutrophils % 84.6 H Lymphocytes % 8.6 L Monocytes % 6.0 Eosinophils % 0.4 Basophils % 0.4 Absolute Neutrophils 9.0 H Absolute Lymphocytes 0.9 Absolute Monocytes 0.6 Absolute Eosinophils 0.0 Absolute Basophils 0.0 Sodium 142.0 Potassium 3.1 L Chloride 100 Carbon Dioxide 29 Anion Gap 13 BUN 72 H Creatinine 1.66 H Est GFR ( Amer) 49 L Est GFR (Non-Af Amer) 40 L Glucose 131 H Calcium 9.5 11/13/16 06:50 Troponin I 0.080 Impressions: Hip X-Ray 11/13/16 01:08 IMPRESSION: Healing left intertrochanteric fracture ORIF. No evidence of acute fracture, loosening or infection. No radiographic evidence of hip avascular necrosis. 2011 [employer]- All Rights Reserved Cervical Spine CT 11/13/16 01:20 IMPRESSION: 1. Multilevel degenerative disease in this patient post remote fusion without fracture, loosening or infection. Head CT 11/13/16 01:20 IMPRESSION: 1. Normal for age noncontrast brain CT examination. Chest X-Ray 11/13/16 02:06 IMPRESSION: Right basilar consolidation suspicious for pneumonia. 2010 [employer]- All Rights Reserved Assessment & Plan - Diagnosis (1) CHF (congestive heart failure) Qualifiers: Congestive heart failure type: unspecified congestive heart failure type Congestive heart failure chronicity: acute on chronic Qualified Code(s): I50.9 - Heart failure, unspecified Is this a current diagnosis for this admission?: Yes Plan: Patient has no echo currently. Continue Coreg, and Lasix and Zaroxolyn (2) Acute worsening of stage 3 chronic kidney disease Is this a current diagnosis for this admission?: Yes Plan: Have stopped IV fluids. This has improved. 08/04/16 08/25/16 11/13/16 04:56 06:15 01:27 Creatinine 1.96 H 1.86 H 3.12 H 11/13/16 11/14/16 11/15/16 06:50 06:05 09:00 Creatinine 2.91 H 2.27 H 1.66 H (3) Decubitus ulcer of heel, bilateral, stage 1 Is this a current diagnosis for this admission?: Yes Plan: Continue to offload (4) RLL pneumonia Qualifiers: Pneumonia type: due to unspecified organism Qualified Code(s): J18.1 - Lobar pneumonia, unspecified organism Is this a current diagnosis for this admission?: Yes Plan: Concern for aspiration will consult speech aspiration precautions Continue Rocephin and azithromycin Patient's white count has improved. (5) Acute respiratory failure with hypoxia and hypercapnia Is this a current diagnosis for this admission?: Yes Plan: Continue oxygen as needed (6) CAD (coronary artery disease) Qualifiers: Coronary Disease-Associated Artery/Lesion type: [place] artery [place] vs. transplanted heart: [place] heart Associated angina: without angina Qualified Code(s): I25.10 - Atherosclerotic heart disease of [place] coronary artery without angina pectoris Is this a current diagnosis for this admission?: Yes (7) CKD (chronic kidney disease) stage 3, GFR 30-59 ml/min Is this a current diagnosis for this admission?: Yes (8) Dehydration Is this a current diagnosis for this admission?: Yes (9) DNR (do not resuscitate) Is this a current diagnosis for this admission?: Yes
[2016-11-15] MEDS: TAMSULOSIN HCL 0.4 MG CAP.SR.24H PO SCH (22:26)
[2016-11-16] MEDS: LANSOPRAZOLE 30 MG TAB.RAP.DR PO SCH (05:40)
[2016-11-16 07:24] LABS: ANION GAP 14 (5-19); BLOOD UREA NITROGEN 64 mg/dL (7-20); CALCIUM 9.5 mg/dL (8.4-10.2); CARBON DIOXIDE 31 mmol/L (22-30); CHLORIDE 99 mmol/L (98-107); CREATININE RESULT 1.34 mg/dL (0.52-1.25); GLUCOSE 138 mg/dL (75-110); MAGNESIUM 1.6 mg/dL (1.6-2.3); POTASSIUM 3.5 mmol/L (3.6-5.0); SODIUM 143.7 mmol/L (137-145)
[2016-11-16 07:26] LABS: ABSOLUTE BASOPHILS # (AUTO) 0.1 10^3/uL (0.0-0.2); ABSOLUTE MONOCYTES (AUTO) 0.6 10^3/uL (0.1-1.4); ABSOLUTE NEUT (AUTO) 15.2 10^3/uL (1.7-8.2); BASOPHILS % (AUTO) 0.4 % (0-2); EOSINOPHILS % (AUTO) 0.1 % (0-6); HEMATOCRIT 35.2 % (37.9-51.0); HEMOGLOBIN 11.7 g/dL (13.5-17.0); HGB HCT DIFFERENCE -0.1; LYMPHOCYTES % (AUTO) 5.8 % (13-45); MEAN CORPUSCULAR HEMOGLOBIN 34.5 pg (27.0-33.4); MEAN CORPUSCULAR HGB CONC 33.4 g/dL (32.0-36.0); MEAN CORPUSCULAR VOLUME 103 fl (80-97); MONOCYTES % (AUTO) 3.6 % (3-13); RED CELL DISTRIBUTION WIDTH 16.5 % (11.5-14.0); SEGMENTED NEUTROPHILS % (AUTO) 90.1 % (42-78); WHITE BLOOD COUNT 16.8 10^3/uL (4.0-10.5)
[2016-11-16] MEDS: HYDROMORPHONE HCL INJ/PF 2 MG/ML AMPULE IV PRN ×2 (07:27→14:41)
[2016-11-16] MEDS: SENNOSIDES/DOCUSATE 8.6-50 MG 1 EACH TABLET PO SCH ×2 (08:53→21:55)
[2016-11-16] MEDS ORDERED: MAGNESIUM SULFATE/D5W 1 GM/100 ML RTUPB IV ONE (09:00)
[2016-11-16] MEDS: ALLOPURINOL 100 MG TABLET PO SCH (09:40)
[2016-11-16] MEDS: FERROUS SULFATE 325 MG TABLET PO SCH (09:40)
[2016-11-16] MEDS: ASPIRIN 81 MG TABLET, ENT COATED PO SCH (09:40)
[2016-11-16] MEDS: FOLIC ACID 1 MG TABLET PO SCH (09:41)
[2016-11-16] MEDS: METOLAZONE 5 MG TABLET PO SCH (09:50)
[2016-11-16] MEDS: CARVEDILOL 6.25 MG TABLET PO SCH ×2 (09:51→22:04)
[2016-11-16] MEDS: FUROSEMIDE INJ/PF 20 MG/2 ML SDV IV SCH (09:51)
[2016-11-16] MEDS ORDERED: AZITHROMYCIN 250 MG TABLET PO SCH (10:00)
[2016-11-16] MEDS ORDERED: COLLAGENASE CLOSTRIDIUM HIST. OINT 30 GM TOP SCH (10:00)
[2016-11-16] MEDS: LEVOFLOXACIN 750 MG/D5W RTU 750 MG/150 ML RTUPB IV SCH (10:58)
--- NOTE | 2016-11-16 14:20 | PDOC CONSULTATION ---
Consultation Consult Date: 11/16/16 Consult reason:: Sacral decubitus ulcer and and right heel decubitus ulcer History of Present Illness Admission Date/PCP: 11/13/16 04:51 CATHLEEN COOL NP Patient complains of: pains along the sacral area some pains along the right heel History of Present Illness: Patient noted to have right heel ulcer when admitted to the hospital. He also had starting sacral decubitus. Patient has been complaining of some pains along those 2 sites. Surgery was consulted regarding management of these ulcers Past Medical History Cardiac Medical History: Reports: Atrial Fibrillation, Congestive Heart Failure , Coronary Artery Disease, Hypertension Pulmonary Medical History: Reports: Chronic Obstructive Pulmonary Disease (COPD) Endocrine Medical History: Reports: Diabetes Mellitus Type 2 Renal/ Medical History: Reports: Chronic Kidney Disease Denies: End Stage Renal Disease Psychiatric Medical History: Denies: Depression Hematology: Reports: Anemia Past Surgical History Past Surgical History: Reports: Gastric Bypass Surgery, Orthopedic Surgery - multiple bilat knees Left total hip replacement, Pacemaker Social History Lives with: Longterm Smoking Status: Current Some Day Smoker Last Time Smoked: November 12, 2016 Frequency of Alcohol Use: Occasional Hx Recreational Drug Use: No Drugs: None Hx Prescription Drug Abuse: No - Advance Directive Resuscitation Status: Do Not Resuscitate - Portable document on chart Family History Family History: Hypertension Parental Family History Reviewed: No Children Family History Reviewed: No Sibling(s) Family History Reviewed.: No Medication/Allergy Home Medications: Allopurinol [Zyloprim 100 mg Tablet] 100 mg PO DAILY 08/02/16 Aspirin [Ecotrin 81 mg EC Tablet] 81 mg PO DAILY 08/02/16 Ferrous Sulfate [Feosol 325 mg Tablet] 325 mg PO DAILY 08/02/16 Folic Acid [Folvite 1 mg Tablet] 1 mg PO DAILY 08/02/16 Omeprazole 40 mg PO DAILY 08/02/16 Tamsulosin HCl [Flomax 0.4 mg Cap.sr] 0.4 mg PO QHS 08/02/16 Carvedilol [Coreg 6.25 mg Tablet] 6.25 mg PO Q12 #60 tablet 08/04/16 Furosemide [Lasix] 40 mg PO DAILY #30 tablet 08/04/16 Acetaminophen [Tylenol 325 mg Tablet] 650 mg PO Q6HP PRN 11/13/16 Acetaminophen [Tylenol 650 mg Supp] 650 mg AR Q4HP PRN 11/13/16 Acetaminophen [Tylenol Extra Strength 500 mg Tablet] 500 mg PO Q4HP PRN Atropine Sulfate [Atropine 1% Oph Soln 5 ml] 4 drop SL Q2HP PRN 11/13/16 B Complex W-C No.20/Folic Acid [Triphrocaps Softgel] 1 mg PO DAILY 11/13/16 Bisacodyl [Dulcolax 10 mg Supp.rect] 10 mg AR DAILYP PRN 11/13/16 Collagenase Clostridium Hist. [Santyl Ointment 30 gm] 1 applic TOP .ASDIR Diazepam [Valium 5 mg Tablet] 5 mg .ROUTE Q6HP PRN 11/13/16 Guaifenesin [Tussin] 10 ml PO Q6HP PRN 11/13/16 Haloperidol [Haldol 1 mg Tablet] 0.5 mg .ROUTE Q4HP PRN 11/13/16 Hydromorphone HCl [Dilaudid] 1 mg PO Q1HP PRN 11/13/16 Hydromorphone HCl [Dilaudid] 2 mg .ROUTE Q4HP PRN 11/13/16 Ipratropium [place] 0.2 mg NEB Q6HP PRN 11/13/16 Levalbuterol HCl [Xopenex Neb 1.25 mg/3 ml Ampul] 1.25 mg NEB Q6HP PRN 11/13/16 Loperamide HCl [Imodium 2 mg Capsule] 2 mg PO PRN PRN 11/13/16 Mag Hydrox/Aluminum Hyd/Simeth [Antacid Plus Anti-Gas Susp] 30 ml PO DAILYP PRN 11/13/16 Magnesium Hydroxide [Milk of Magnesia 30 ml Udcup] 30 ml PO HSP PRN 11/13/16 Metolazone [Zaroxolyn 5 mg Tablet] 5 mg PO DAILY 11/13/16 Neomycin/Bacitracin/Polymyxinb [Triple Antibiotic Ointment] 1 applic TOP DAILYP PRN 11/13/16 Oxycodone HCl/Acetaminophen [Percocet 5-325 mg Tablet] 1 tab PO Q6HP PRN Potassium Chloride [Klor-Con 10 Meq Tablet.sa] 10 meq PO DAILY 11/13/16 Sennosides/Docusate 8.6-50 mg [Senna Plus Tablet] 2 tab PO BID@0800,1999 Tramadol HCl [Ultram 50 mg Tablet] 50 mg PO Q6HP PRN 11/13/16 Allergies/Adverse Reactions: Hymenoptera Allergenic Extract [From [place] Venom Protein] Allergy ( Severe, Verified 11/13/16 01:15) Anaphylaxis morphine [Morphine] Allergy (Severe, Verified 11/13/16 01:15) Hallucinations Penicillins Allergy (Severe, Verified 11/13/16 04:56) Heart Attack [place] Krish Protein [From [place] Venom Protein] Allergy (Severe, Verified 11/13/16 01:15) Anaphylaxis oxycodone Allergy (Verified 11/13/16 01:15) hymenoptera stings Allergy (Uncoded 11/13/16 01:15) Review of Systems Constitutional: PRESENT: as per HPI Physical Exam Vital Signs: Temp Pulse Resp BP Pulse Ox 97.3 F 60 16 127/64 H 92 11/16/16 12:31 11/16/16 12:31 11/16/16 12:31 11/16/16 12:31 11/16/16 12:31 Intake & Output 11/15/16 11/16/16 11/17/16 06:59 06:59 06:59 Intake Total 492 160 Balance 492 160 Weight 65.6 kg 64.8 kg Exam: No cyst was stage I decubitus ulcer along the sacral area roughly measuring about 3 cm this appears to be none full-thickness along the skin. This is somewhat tender He has about 1-1/2 cm ulcer along the right heel this one. Appears to be full skin thickness with minimal drainage. Results Laboratory Results: 11/16/16 06:45 11/16/16 06:45 11/16/16 11/16/16 06:45 06:45 WBC 16.8 H RBC 3.40 L Hgb 11.7 L Hct 35.2 L MCV 103 H MCH 34.5 H MCHC 33.4 RDW 16.5 H Plt Count 115 L Seg Neutrophils % 90.1 H Lymphocytes % 5.8 L Monocytes % 3.6 Eosinophils % 0.1 Basophils % 0.4 Absolute Neutrophils 15.2 H Absolute Lymphocytes 1.0 Absolute Monocytes 0.6 Absolute Eosinophils 0.0 Absolute Basophils 0.1 Sodium 143.7 Potassium 3.5 L Chloride 99 Carbon Dioxide 31 H Anion Gap 14 BUN 64 H Creatinine 1.34 H Est GFR ( Amer) > 60 Est GFR (Non-Af Amer) 52 L Glucose 138 H Calcium 9.5 Magnesium 1.6 11/13/16 06:50 Troponin I 0.080 Impressions: Hip X-Ray 11/13/16 01:08 IMPRESSION: Healing left intertrochanteric fracture ORIF. No evidence of acute fracture, loosening or infection. No radiographic evidence of hip avascular necrosis. 2010 [employer]- All Rights Reserved Cervical Spine CT 11/13/16 01:20 IMPRESSION: 1. Multilevel degenerative disease in this patient post remote fusion without fracture, loosening or infection. Head CT 11/13/16 01:20 IMPRESSION: 1. Normal for age noncontrast brain CT examination. Chest X-Ray 11/13/16 02:06 IMPRESSION: Right basilar consolidation suspicious for pneumonia. 2010 [employer]- All Rights Reserved Assessment & Plan - Time Critical Time spent with patient: 25-34 minutes - Plan Summary Plan Summary: #1 apply swab of Betadine solution along both ulcers daily 2. Apply a an Allevyn dressing daily 3 avoid pressure by turning to his sides. Placement of a pillow underneath both feet to prevent pressure of both heels on the bed
[2016-11-16] MEDS ORDERED: HYDROMORPHONE HCL INJ/PF 2 MG/ML AMPULE IV PRN (15:18)
--- NOTE | 2016-11-16 15:26 | PDOC PROGRESS REPORT ---
Subjective Progress Note for:: 11/16/16 Subjective:: Patient is sleeping and unable to obtain review of systems from him at this time. Physical Exam Vital Signs: Temp Pulse Resp BP Pulse Ox 97.3 F 60 16 127/64 H 92 11/16/16 12:31 11/16/16 12:31 11/16/16 12:31 11/16/16 12:31 11/16/16 12:31 Intake & Output 11/15/16 11/16/16 11/17/16 06:59 06:59 06:59 Intake Total 492 160 240 Balance 492 160 240 Weight 65.6 kg 64.8 kg Exam: General: Resting comfortably, no acute respiratory distress HEENT: AT/NC, PERRL, EOMI, oropharynx is moist, pink, no scleral icterus, no conjunctival injection Neck: No JVD, trachea midline Chest: Rhonchi right lower lobe CV: RRR Abdomen: Soft, NTTP, mildly distended, active bowel sounds; no rebound, rigidity , or guarding Extremities: No cyanosis, clubbing; 2+edema Neuro: Moves all extremities Results Laboratory Results: 11/16/16 06:45 11/16/16 06:45 11/16/16 11/16/16 06:45 06:45 WBC 16.8 H RBC 3.40 L Hgb 11.7 L Hct 35.2 L MCV 103 H MCH 34.5 H MCHC 33.4 RDW 16.5 H Plt Count 115 L Seg Neutrophils % 90.1 H Lymphocytes % 5.8 L Monocytes % 3.6 Eosinophils % 0.1 Basophils % 0.4 Absolute Neutrophils 15.2 H Absolute Lymphocytes 1.0 Absolute Monocytes 0.6 Absolute Eosinophils 0.0 Absolute Basophils 0.1 Sodium 143.7 Potassium 3.5 L Chloride 99 Carbon Dioxide 31 H Anion Gap 14 BUN 64 H Creatinine 1.34 H Est GFR ( Amer) > 60 Est GFR (Non-Af Amer) 52 L Glucose 138 H Calcium 9.5 Magnesium 1.6 11/13/16 06:50 Troponin I 0.080 Impressions: Hip X-Ray 11/13/16 01:08 IMPRESSION: Healing left intertrochanteric fracture ORIF. No evidence of acute fracture, loosening or infection. No radiographic evidence of hip avascular necrosis. 2010 [employer]- All Rights Reserved Cervical Spine CT 11/13/16 01:20 IMPRESSION: 1. Multilevel degenerative disease in this patient post remote fusion without fracture, loosening or infection. Head CT 11/13/16 01:20 IMPRESSION: 1. Normal for age noncontrast brain CT examination. Chest X-Ray 11/13/16 02:06 IMPRESSION: Right basilar consolidation suspicious for pneumonia. 2010 [employer]- All Rights Reserved Assessment & Plan - Diagnosis (1) CHF (congestive heart failure) Qualifiers: Congestive heart failure type: unspecified congestive heart failure type Congestive heart failure chronicity: acute on chronic Qualified Code(s): I50.9 - Heart failure, unspecified Is this a current diagnosis for this admission?: Yes Plan: Patient pending echo currently. Continue Coreg, and Lasix and Zaroxolyn No BARON/ARB secondary to acute and chronic renal failure (2) Acute worsening of stage 3 chronic kidney disease Is this a current diagnosis for this admission?: Yes Plan: Have stopped IV fluids. This has improved. Encourage oral intake of fluid 08/04/16 08/25/16 11/13/16 04:56 06:15 01:27 Creatinine 1.96 H 1.86 H 3.12 H 11/13/16 11/14/16 11/15/16 06:50 06:05 09:00 Creatinine 2.91 H 2.27 H 1.66 H 11/16/16 06:45 Creatinine 1.34 H (3) Decubitus ulcer of heel, bilateral, stage 1 Is this a current diagnosis for this admission?: Yes (4) RLL pneumonia Qualifiers: Pneumonia type: due to unspecified organism Qualified Code(s): J18.1 - Lobar pneumonia, unspecified organism Is this a current diagnosis for this admission?: Yes Plan: Concern for aspiration will consult speech aspiration precautions Patient's white count has worsened and will change to levaquin. Now have to limit sedating medications as patient is not on hospice any longer (5) Acute respiratory failure with hypoxia and hypercapnia Is this a current diagnosis for this admission?: Yes Plan: Continue oxygen as needed (6) CAD (coronary artery disease) Qualifiers: Coronary Disease-Associated Artery/Lesion type: [place] artery [place] vs. transplanted heart: [place] heart Associated angina: without angina Qualified Code(s): I25.10 - Atherosclerotic heart disease of [place] coronary artery without angina pectoris Is this a current diagnosis for this admission?: Yes (7) CKD (chronic kidney disease) stage 3, GFR 30-59 ml/min Is this a current diagnosis for this admission?: Yes (8) Dehydration Is this a current diagnosis for this admission?: Yes Plan: Improved (9) DNR (do not resuscitate) Is this a current diagnosis for this admission?: Yes - Time Time Spent with patient: 25-34 minutes Medications reviewed and adjusted accordingly: Yes Anticipated discharge: Acute Rehab Within: when bed available
[2016-11-16] MEDS: DIAZEPAM 5 MG TABLET PO PRN (17:07)
[2016-11-16] MEDS: TAMSULOSIN HCL 0.4 MG CAP.SR.24H PO SCH (22:04)
[2016-11-17] MEDS: LANSOPRAZOLE 30 MG TAB.RAP.DR PO SCH (05:03)
[2016-11-17 07:19] LABS: ABSOLUTE LYMPHOCYTES (AUTO) 0.9 10^3/uL (0.5-4.7); ABSOLUTE MONOCYTES (AUTO) 0.6 10^3/uL (0.1-1.4); ABSOLUTE NEUT (AUTO) 12.9 10^3/uL (1.7-8.2); BASOPHILS % (AUTO) 0.3 % (0-2); EOSINOPHILS % (AUTO) 0.3 % (0-6); HEMATOCRIT 34.2 % (37.9-51.0); HEMOGLOBIN 11.5 g/dL (13.5-17.0); HGB HCT DIFFERENCE 0.3; MEAN CORPUSCULAR HEMOGLOBIN 34.4 pg (27.0-33.4); MEAN CORPUSCULAR HGB CONC 33.6 g/dL (32.0-36.0); MEAN CORPUSCULAR VOLUME 102 fl (80-97); RED BLOOD COUNT 3.34 10^6/uL (4.35-5.55); RED CELL DISTRIBUTION WIDTH 16.6 % (11.5-14.0); SEGMENTED NEUTROPHILS % (AUTO) 89.4 % (42-78); WHITE BLOOD COUNT 14.4 10^3/uL (4.0-10.5)
[2016-11-17 07:37] LABS: ANION GAP 12 (5-19); BLOOD UREA NITROGEN 56 mg/dL (7-20); CALCIUM 9.7 mg/dL (8.4-10.2); CARBON DIOXIDE 32 mmol/L (22-30); CHLORIDE 101 mmol/L (98-107); CREATININE RESULT 1.25 mg/dL (0.52-1.25); GLUCOSE 108 mg/dL (75-110)
[2016-11-17 07:54] LABS: POTASSIUM 2.8 mmol/L (3.6-5.0)
[2016-11-17 08:31] VITALS: BP 134/61
--- NOTE | 2016-11-17 08:32 | RADIOLOGY REPORT (SQ) ---
EXAM DESCRIPTION: CHEST SINGLE VIEW COMPLETED DATE/TIME: 11/17/2016 8:21 am REASON FOR STUDY: f/u na, r/o chf COMPARISON: Chest films 11/13/2016, 04/10/2016, 02/04/2015, 02/03/2015 EXAM PARAMETERS: NUMBER OF VIEWS: One view. TECHNIQUE: Single frontal radiographic view of the chest acquired. RADIATION DOSE: NA LIMITATIONS: None. FINDINGS: LUNGS AND PLEURA: Partial clearing of the airspace disease at the right lung base. There is left retrocardiac airspace disease, likely atelectasis. Pneumonia could not be excluded. No pleural effusions. No pneumothorax. MEDIASTINUM AND HILAR STRUCTURES: No masses. Contour normal. HEART AND VASCULAR STRUCTURES: No cardiomegaly. Old sternotomy for CABG. BONES: Osteoporotic HARDWARE: Lower cervical fusion hardware. Left-sided dual lead pacemaker. OTHER: No other significant finding. IMPRESSION: Partial clearing of the right basilar airspace disease. Persistent mild left retrocardi ac airspace disease. TECHNICAL DOCUMENTATION: JOB ID: [id number]
[2016-11-17] MEDS ORDERED: POTASSIUM CHLORIDE 20 MEQ/15 ML UDCUP PO SCH ×2 (09:00→10:00)
[2016-11-17] MEDS: LEVOFLOXACIN 750 MG/D5W RTU 750 MG/150 ML RTUPB IV SCH (09:49)
[2016-11-17] MEDS: SENNOSIDES/DOCUSATE 8.6-50 MG 1 EACH TABLET PO SCH (09:50)
[2016-11-17] MEDS: ALLOPURINOL 100 MG TABLET PO SCH (09:50)
[2016-11-17] MEDS: FERROUS SULFATE 325 MG TABLET PO SCH (09:50)
[2016-11-17] MEDS: CARVEDILOL 6.25 MG TABLET PO SCH (09:50)
[2016-11-17] MEDS: ASPIRIN 81 MG TABLET, ENT COATED PO SCH (09:51)
[2016-11-17] MEDS: FOLIC ACID 1 MG TABLET PO SCH (09:51)
[2016-11-17] MEDS: FUROSEMIDE INJ/PF 20 MG/2 ML SDV IV SCH (09:52)
[2016-11-17] MEDS: METOLAZONE 5 MG TABLET PO SCH (10:15)
[2016-11-17] MEDS ORDERED: POTASSIUM CHLORIDE 20 MEQ/50 ML RTU IV SCH (11:00)
[2016-11-17] MEDS ORDERED: VANCOMYCIN HCL 0 MG in DEXTROSE 5%-WATER 250 ML IV NR (11:30)
[2016-11-17] MEDS ORDERED: DEXTROSE 40% GEL 15 GM TUBE PO PRN ×2 (11:47)
[2016-11-17] MEDS ORDERED: DEXTROSE 50%-WATER 25 GM/50 ML DISP.SYRIN IV PRN ×2 (11:47)
[2016-11-17] MEDS ORDERED: INSULIN LISPRO 100 UNIT/ML 3 ML VIAL SUBCUT PRN (11:47)
[2016-11-17] MEDS ORDERED: GLUCAGON,HUMAN RECOMB 1 MG INJ IM PRN (11:47)
--- NOTE | 2016-11-17 11:51 | PDOC PROGRESS REPORT ---
Subjective Progress Note for:: 11/17/16 Subjective:: I was called by the nursing staff this morning that the patient seemed to be aspirating almost everything that he put in his mouth including his liquid potassium that I had ordered. When I went to see him he was awake alert and oriented 1. He was quite confused and review of systems cannot be obtained. The patient's son was at the bedside. I spent quite some time discussing goals of care. He is aware that his father is declining and likely is reaching the end of his life. He is at peace with that but would like for us to do what we can with IV antibiotics and diuretics for now. It is clear that the patient will not be able to go back to his assisted living facility and will need halfway facility placement if he improves at the time of discharge. The discharge planners are working on this. The patient is also receives [facility] The son is working on getting some assistance as well from them. Physical Exam Vital Signs: Temp Pulse Resp BP Pulse Ox 97.4 F 57 L 18 134/61 H 92 11/17/16 08:00 11/17/16 08:00 11/17/16 08:00 11/17/16 08:00 11/17/16 08:00 Intake & Output 11/16/16 11/17/16 11/18/16 06:59 06:59 06:59 Intake Total 160 300 Balance 160 300 Weight 64.8 kg 62.1 kg General appearance: PRESENT: cooperative, disheveled, thin, other - Quite cachectic. He looks as if he feels quite poorly Head exam: PRESENT: atraumatic, other - Bitemporal wasting Eye exam: PRESENT: conjunctiva pink, EOMI, PERRLA. ABSENT: scleral icterus Mouth exam: PRESENT: moist, tongue midline Respiratory exam: ABSENT: accessory muscle use - He has coarse breath sounds throughout all lung monterroso bilaterally. Cardiovascular exam: PRESENT: RRR. ABSENT: diastolic murmur, rubs, systolic murmur GI/Abdominal exam: PRESENT: normal bowel sounds, soft. ABSENT: distended, guarding, mass, organolmegaly, rebound, tenderness Rectal exam: PRESENT: deferred Extremities exam: ABSENT: clubbing, pedal edema, +1 edema, +2 edema Musculoskeletal exam: ABSENT: ambulatory Neurological exam: PRESENT: alert, awake, oriented to person. ABSENT: oriented to place, oriented to time, oriented to situation Psychiatric exam: PRESENT: appropriate affect, normal mood. ABSENT: homicidal ideation, suicidal ideation Skin exam: PRESENT: dry, intact, warm. ABSENT: cyanosis, rash Results Laboratory Results: 11/17/16 06:51 11/17/16 06:51 11/17/16 11/17/16 06:51 06:51 WBC 14.4 H RBC 3.34 L Hgb 11.5 L Hct 34.2 L MCV 102 H MCH 34.4 H MCHC 33.6 RDW 16.6 H Plt Count 106 L Seg Neutrophils % 89.4 H Lymphocytes % 6.0 L Monocytes % 4.0 Eosinophils % 0.3 Basophils % 0.3 Absolute Neutrophils 12.9 H Absolute Lymphocytes 0.9 Absolute Monocytes 0.6 Absolute Eosinophils 0.0 Absolute Basophils 0.0 Sodium 145.0 Potassium 2.8 L* Chloride 101 Carbon Dioxide 32 H Anion Gap 12 BUN 56 H Creatinine 1.25 Est GFR ( Amer) > 60 Est GFR (Non-Af Amer) 56 L Glucose 108 Calcium 9.7 11/13/16 06:50 Troponin I 0.080 Impressions: Hip X-Ray 11/13/16 01:08 IMPRESSION: Healing left intertrochanteric fracture ORIF. No evidence of acute fracture, loosening or infection. No radiographic evidence of hip avascular necrosis. 2010 [address] [email or web address] All Rights Reserved Cervical Spine CT 11/13/16 01:20 IMPRESSION: 1. Multilevel degenerative disease in this patient post remote fusion without fracture, loosening or infection. Head CT 11/13/16 01:20 IMPRESSION: 1. Normal for age noncontrast brain CT examination. Chest X-Ray 11/17/16 00:00 IMPRESSION: Partial clearing of the right basilar airspace disease. Persistent mild left retrocardiac airspace disease. Assessment & Plan - Diagnosis (1) Acute on chronic renal failure Plan: Likely multifactorial secondary to dehydration and medications. Resolved. His IV fluids have been stopped and his creatinine is down to 1.25 today. (2) Acute on chronic congestive heart failure Plan: I suspect this is acute on chronic diastolic congestive heart failure. A 2D echocardiogram is pending. He currently is receiving Lasix 20 mg IV daily. This is likely due to IV fluids obtained at the time of admission. A BNP is pending. (3) Decubitus ulcer of heel, bilateral, stage 1 Is this a current diagnosis for this admission?: Yes Plan: Continue local wound care. General surgery input is greatly appreciated. If he improves he will follow-up at the wound care center at discharge. (4) Right lower lobe pneumonia Plan: Chest x-ray this morning is concerning for possible worsening of his pneumonia. I suspect the patient has aspirated. Patient has been in rehab in a halfway facility. He also has been residing at [facility] assisted living [facility] since that time. He has been receiving IV Levaquin and really is no better. He has persistent leukocytosis. Concerns at this point are for gram negatives and MRSA. I am going to broaden his IV antibiotic coverage and add vancomycin and cefepime to his regimen. He will continue IV Levaquin as well. (5) Acute respiratory failure with hypoxia and hypercapnia Is this a current diagnosis for this admission?: Yes Plan: Currently off of oxygen. Resolved at this point. (6) CAD (coronary artery disease) Qualifiers: Coronary Disease-Associated Artery/Lesion type: [place] artery [place] vs. transplanted heart: [place] heart Associated angina: without angina Qualified Code(s): I25.10 - Atherosclerotic heart disease of [place] coronary artery without angina pectoris Is this a current diagnosis for this admission?: Yes Plan: No chest pain today. Stable. (7) Dehydration Plan: Resolved with IV fluid hydration. (8) Anemia Plan: The patient has macrocytosis. I will obtain a vitamin B12 and folate level. He also likely has an anemia of chronic disease as well as an element of hemodilution. No evidence of bleeding. (9) COPD exacerbation Plan: Patient has coarse wheezing noted. I am going to start him on IV Solu-Medrol every 8 hours and will see if this will make an improvement. (10) Diabetes Plan: Blood sugars have been looking fairly well. He is going to be started on steroids today. I will have sliding scale Humalog available as needed. We will check his blood sugars before meals at bedtime. (11) BPH (benign prostatic hyperplasia) Plan: Continue Flomax (12) Hypomagnesemia Plan: Repleted (13) Hypokalemia Plan: TThis will be repleted today and will recheck chemistry panel in the morning.his will be repleted today and will recheck chemistry panel in the morning. (14) Ambulatory dysfunction Plan: The patient is basically wheelchair-bound at this point. - Time Time Spent with patient: 35 or more minutes Anticipated discharge: SNF - Inpatient Certification Medical Necessity: Significant Comorbidiites Make Outpatient Treatment Too Risky , Need for IV Antibiotics, Other - Inpatient hospitalization remains necessary. The patient is quite sick with worsening respiratory status. I am going to broaden his IV antibiotics today. He will continue IV diuresis. He is going to be on IV steroids as well. Ultimately he is going to need halfway facility placement. If he does not improve I have discussed a possible transition to a palliative care approach and inpatient hospice with the patient' s son.
--- NOTE | 2016-11-17 12:53 | Death Summary ---
Summary Date : 11/17/16 Time of :: 12:10 Autopsy: No Resuscitation Status: Do Not Resuscitate Primary Care Provider: Srinivasa Washington GOVERNMENT PROFESSOR - Final Diagnosis (4) Decubitus ulcer of heel, bilateral, stage 1 Is this a current diagnosis for this admission?: Yes (5) Acute respiratory failure with hypoxia and hypercapnia Is this a current diagnosis for this admission?: Yes (6) CAD (coronary artery disease) Is this a current diagnosis for this admission?: Yes Hospital Course:: The patient is a 76-year-old gentleman with a past medical history significant for underlying COPD and a long-standing history of tobacco abuse. He had chronic kidney disease stage III, congestive heart failure and a history of chronic alcohol and tobacco abuse. He also has a history of coronary artery disease and type 2 diabetes mellitus. He was brought to the emergency room from his assisted living facility after sustaining a fall. In the emergency room he was found to have evidence of acute renal failure as well as a right lower lobe pneumonia. He was admitted to the hospital and he was started on IV antibiotics and IV fluid hydration. Over the course of the hospitalization his acute renal failure improved. The patient was found to be having difficulty swallowing and in spite of treatment with IV antibiotics continued to have persistent leukocytosis and worsening shortness of breath. On the day of the patient was noted to have aspirated on medications, liquids and food. Chest x-ray was concerning for will worsening infiltrates. At 12:10 PM the patient peacefully with the nurse at the bedside. It is felt that the most likely cause of his is worsening pneumonia likely due to aspiration. The patient also was being diuresed at the time of as he had become somewhat volume overloaded within the acute congestive with a mild acute on chronic congestive heart failure exacerbation that was likely diastolic in nature.
[2016-11-17] MEDS ORDERED: METHYLPREDNISOLONE INJ 40 MG/1 ML SDV IV ONE (13:00)
[2016-11-17] MEDS ORDERED: CEFEPIME 1 GM/D5W RTU 1 GM/50 ML RTUPB IV ONE (13:00)
--- NOTE | 2016-11-17 13:39 | XCELERA REPORT ---
[address] [address] Transthoracic Echocardiogram Report Name: SANJUANA KING JR Age: 76 yrs Gender: Male : 1940 Patient Status: Inpatient Patient Location: [address] [place] [address] Study Date: 11/17/2016 08:45 AM Height: 71 in Weight: 142 lb BSA: 1.8 m2 Procedure: A complete two-dimensional transthoracic echocardiogram was performed (2D, M-mode, spectral and color flow Doppler). The study was technically difficult with many images being suboptimal in quality. Reason For Study: chf Ordering Physician: FRANCIS VALERO Performed By: Allison Simon Interpretation Summary The study was technically difficult with many images being suboptimal in quality. The left ventricular ejection fraction is normal. There is mild concentric left ventricular hypertrophy. The left ventricle is grossly normal size. Doppler measurements suggest pseudonormalized left ventricular relaxation, which is associated with grade II/IV or mild to moderate diastolic dysfunction Wall motion cannot be accurately commented on, but no definite regional wall motion abnormalities noted. The right ventricular systolic function is normal. The left atrium is mildly dilated. The right atrium is mildly dilated. There is a mild amount of mitral regurgitation There is no mitral valve stenosis. There is a mild amount of aortic regurgitation There is no aortic valve stenosis There is a trace to mild amount of tricuspid regurgitation There is mild to moderate pulmonary hypertension by echo Right ventricular systolic pressure is estimated to be elevated at 40- 50mmHg. The aortic root is not well visualized but is probably normal size. The inferior vena cava was not well visualized There is no pericardial effusion. MMode/2D Measurements & Calculations RVDd: 3.0 cm LVIDd: 3.8 cmFS: 38.5 % Ao root diam: 3.9 cm IVSd: 1.3 cm LVIDs: 2.3 cmEDV(Teich): 62.6 ml LVPWd: 1.1 cmESV(Teich): 19.1 ml Ao root area: 12.0 cm2 EF(Teich): 69.5 % LA dimension: 4.3 cm LVOT diam: 2.2 cm LVOT area: 3.8 cm2 Doppler Measurements & Calculations MV E max tamiko: MV P1/2t max tamiko: Ao V2 max: AI max tamiko: 99.7 cm/sec 100.2 cm/sec 101.3 cm/sec 271.0 cm/sec MV A max tamiko: MV P1/2t: 61.5 msec Ao max PG: AI max P.5 cm/sec MVA(P1/2t): 3.6 cm2 4.1 mmHg 29.4 mmHg MV E/A: 2.5 MV dec slope: MARAL(V,D): 2.8 cm2 AI dec slope: 477.6 cm/sec2 128.4 cm/sec2 AI P1/2t: 618.1 msec LV V1 max PG: PA V2 max: TR max tamiko: 2.3 mmHg 66.1 cm/sec 325.8 cm/sec LV V1 max: PA max P.7 mmHg TR max P.3 cm/sec 42.5 mmHg Left Ventricle The left ventricle is grossly normal size. There is mild concentric left ventricular hypertrophy. The left ventricular ejection fraction is normal. Doppler measurements suggest pseudonormalized left ventricular relaxation, which is associated with grade II/IV or mild to moderate diastolic dysfunction. Not all wall segments were well visualized. Wall motion cannot be accurately commented on, but no definite regional wall motion abnormalities noted. Right Ventricle The right ventricle is grossly normal size. There is normal right ventricular wall thickness. The right ventricular systolic function is normal. Atria The right atrium is mildly dilated. The left atrium is mildly dilated. Interarterial septum not well visualized and not well dopplered. Cannot comment on ASD/PFO presence. Mitral Valve The mitral valve leaflets are sclerotic and show some degree of functional abnormality. There is no mitral valve stenosis. There is a mild amount of mitral regurgitation. Aortic Valve The aortic valve is grossly normal. There is no aortic valve stenosis. There is a mild amount of aortic regurgitation. Tricuspid Valve The tricuspid valve is not well visualized, but is grossly normal. There is no tricuspid stenosis. There is a trace to mild amount of tricuspid regurgitation. There is mild to moderate pulmonary hypertension by echo. Right ventricular systolic pressure is estimated to be elevated at 40- 50mmHg. Pulmonic Valve The pulmonic valve is not well visualized. Great Vessels The aortic root is not well visualized but is probably normal size. The inferior vena cava was not well visualized. Effusions There is no pericardial effusion. : FRANCIS VALERO > Mary Ellen Mahoney
[2016-11-17] MEDS ORDERED: VANCOMYCIN HCL 1,500 MG in DEXTROSE 5%-WATER 250 ML IV ONE (14:00)
[2016-11-17] MEDS ORDERED: METHYLPREDNISOLONE INJ 40 MG/1 ML SDV IV SCH (22:00)
[2016-11-17] MEDS ORDERED: CEFEPIME 1 GM/D5W RTU 1 GM/50 ML RTUPB IV SCH (22:00)
[2016-11-18] MEDS ORDERED: VANCOMYCIN HCL 1,000 MG in DEXTROSE 5%-WATER 250 ML IV SCH (14:00)
== END 2016-11-17 12:10 | DRG 177 ==
LOC: ER 00:55 → EH 03:50 → UNDOADMIN 03:50 → 4S 04:51 → EH 05:53
PROVIDERS: ADMIT Family Medicine; ATTEND Family Medicine
DX: J69.0 Pneumonitis due to inhalation of food and vomit (principal); J96.02 Acute respiratory failure with hypercapnia; J96.01 Acute respiratory failure with hypoxia; Z66 Do not resuscitate; I50.33 Acute on chronic diastolic (congestive) heart failure; N17.9 Acute kidney failure, unspecified; I13.2 Hypertensive heart and chronic kidney disease with heart failure and with stage 5 chronic kidney disease, or end stage renal disease; I13.0 Hypertensive heart and chronic kidney disease with heart failure and stage 1 through stage 4 chronic kidney disease, or unspecified chronic kidney disease; J44.1 Chronic obstructive pulmonary disease with (acute) exacerbation; S72.142D Displaced intertrochanteric fracture of left femur, subsequent encounter for closed fracture with routine healing; I48.0 Paroxysmal atrial fibrillation; N18.3 Chronic kidney disease, stage 3 (moderate); I25.10 Atherosclerotic heart disease of native coronary artery without angina pectoris; E11.22 Type 2 diabetes mellitus with diabetic chronic kidney disease; E86.0 Dehydration; D50.9 Iron deficiency anemia, unspecified; L89.621 Pressure ulcer of left heel, stage 1; L89.611 Pressure ulcer of right heel, stage 1; E83.42 Hypomagnesemia; E87.6 Hypokalemia; N40.0 Benign prostatic hyperplasia without lower urinary tract symptoms; F17.210 Nicotine dependence, cigarettes, uncomplicated; W19.XXXA Unspecified fall, initial encounter; Y93.9 Activity, unspecified; Y92.129 Unspecified place in nursing home as the place of occurrence of the external cause; Z96.642 Presence of left artificial hip joint; Z96.653 Presence of artificial knee joint, bilateral; Z95.0 Presence of cardiac pacemaker; Z98.84 Bariatric surgery status; Z79.82 Long term (current) use of aspirin; Z79.899 Other long term (current) drug therapy
CPT/HCPCS: 36415; 70450; 71010; 72125; 80048; 80076; 82803; 82962; 83735; 83880; 84484; 85025; 87040; 93005; 93010; 93306; 94640; 94799; 96360; 99285; G8996-GN; G8997-GN; G8998-GN; J0456; J0696; J1170; J1940; J1956; J3475; J3490; J7030; J7060; J7620